=== PATIENT | male | born 1950 | race Caucasian/White ===

== ENCOUNTER → 2017-03-25 11:12 | Outpatient (CLI) | payer MEDICARE, OTHER, SELFPAY ==
--- NOTE | 2017-03-25 11:24 | RAD_ITS ---
STUDY: X-RAY CHEST REASON FOR EXAM: Male, 66 years old. Dyspnea on exertion. TECHNIQUE: PA and lateral views of the chest. COMPARISON: Comparison is made with prior study dated July 28, 2012. FINDINGS: There is mild elevation of the right hemidiaphragm. Stable mild increased markings at the right lung base suggestive scarring. There is no demonstrated pleural abnormality. Sternal cerclage wires are present from a prior sternotomy. The patient is status post aortic valve replacement. Cardiomegaly. Normal mediastinum and genoveva. Normal visualized pulmonary arteries. Normal visualized aortic arch and descending thoracic aorta. There is a dextroscoliosis of the thoracic spine. Normal visualized ribs, clavicles, and shoulders. There is no demonstrated abnormality of the visualized soft tissue structures of the upper abdomen. RAD/Chest PA and Lateral IMPRESSION: Prior aortic valve replacement. No acute abnormality is seen. Electronically Signed: Darius Martin MD at 11:55 EST Tel [phone], Service support ,
== END ==
PROVIDERS: Family Provider Family Medicine; PCP Family Medicine; Visit Provider Family Medicine
DX: R06.09 Other forms of dyspnea (principal)
CPT/HCPCS: 71046

== ENCOUNTER 2021-05-07 08:35 | Outpatient (RCR) | payer MEDICARE, OTHER, SELFPAY ==
[2021-05-07 09:07] VITALS: BP 105/68; PULSE 90; RESP 16; TEMP 35.7; BMI 28.4
--- NOTE | 2021-05-07 10:27 | PCM.WC.HP ---
History of Present Illness Date of Service: 05/07/21 Chief Complaint: Follow-up right lower leg anterior russell cluster Wounds History of Wound: 70-year-old white male that has history of an aortic valve replacement mechanical and now has developed A. fib. noticed severe edema since Isa. The [facility] Has put him on water pill. Recently he went and saw his regular natural science curator that diagnosed him with the atrial fibrillation. Patient is already on Coumadin and Lasix and wears compression stockings only in the last week. Patient was also started on doxycycline through the OR. We will get arterial brachial studies on him and venous studies [facility] Medical History Atrial fibrillation BPH (benign prostatic hyperplasia) Depression High cholesterol Medical History no medical history no medical history Home Medications aspirin 81 mg PO DAILY 05/07/21 [History Last Taken Unknown] buspirone 10 mg PO BID 05/07/21 [History Last Taken Unknown] carvedilol 3.125 mg PO BID 05/07/21 [History Last Taken Unknown] cholecalciferol (vitamin D3) 50 mcg PO DAILY 05/07/21 [History Last Taken Unknown] citalopram 20 mg PO DAILY 05/07/21 [History Last Taken Unknown] cyanocobalamin (vitamin B-12) 1,000 mcg PO DAILY 05/07/21 [History Last Taken Unknown] furosemide 40 mg PO DAILY PRN 05/07/21 [History Last Taken Unknown] multivitamin with minerals 1 tab PO DAILY 05/07/21 [History Last Taken Unknown] potassium mg PO 05/07/21 [History Last Taken Unknown] pravastatin 40 mg PO QHS 05/07/21 [History Last Taken Unknown] tamsulosin 0.4 mg PO QHS 05/07/21 [History Last Taken Unknown] warfarin 2.5 mg PO DAILY 05/07/21 [History Last Taken Unknown] Allergy/AdvReac Type Severity Reaction Status Date / Time Penicillins Allergy Rash Verified 05/07/21 09:35 finasteride AdvReac NEEDS Verified 05/07/21 09:35 FOLLOW-UP lisinopril AdvReac Other Verified 05/07/21 09:35 spironolactone AdvReac NEEDS Verified 05/07/21 09:35 FOLLOW-UP Surgical History Metallic aortic valve replacement during current hospitalization Social History Smoking Status: Never smoker ROS Constitutional Constitutional: Reports systems reviewed and no addt'l complaints, except as documented Eyes Eyes: Reports systems reviewed and no addt'l complaints, except as documented ENT HEENT: Reports systems reviewed and no addt'l complaints, except as documented Cardiovascular Cardiovascular: Reports edema Respiratory/Chest Respiratory/Chest: Reports systems reviewed and no addt'l complaints, except as documented Gastrointestinal Gastrointestinal: Reports systems reviewed and no addt'l complaints, except as documented Genitourinary Genitourinary: Reports systems reviewed and no addt'l complaints, except as documented Musculoskeletal Musculoskeletal: Reports systems reviewed and no addt'l complaints, except as documented Integumentary Integumentary: Reports skin swelling and wounds Neurologic Neurologic: Reports systems reviewed and no addt'l complaints, except as documented Psychiatric Psychiatric: Reports systems reviewed and no addt'l complaints, except as documented Endocrine Endocrinology: Reports systems reviewed and no addt'l complaints, except as documented Hematologic/Lymphatic Hematologic/Lymphatic: Reports systems reviewed and no addt'l complaints, except as documented Allergic/Immunologic Allergic/Immunologic: Reports systems reviewed and no addt'l complaints, except as documented Vital Signs Vital Signs Vital Signs: 05/07/21 09:07 Temperature 96.2 F L Temperature Source Temporal Pulse Rate 90 Respiratory Rate 16 Blood Pressure 105/68 Blood Pressure Mean 80 Blood Pressure Source Monitor Blood Pressure Position Sitting Blood Pressure Location Right Arm Oxygen Delivery Method Room Air Weight Weight: 176 lb Body Mass Index (BMI) 28.4 Physical Exam Const oriented x3 General Appearance: cooperative Exam Limitations: no limitations Neck full ROM General: normal visual inspection Resp normal respiratory effort Effort and Inspection: able to speak in complete sentences Auscultation: clear to auscultation bilaterally Cardio Cardio Narrative: Irregular rate and rhythm obviously in A. fib Palpation: normal PMI Rate: tachycardic Rhythm: regular rhythm and abnormal rhythm Peripheral Pulses: dorsalis pedis pulses present GI Auscultation: normoactive bowel sounds Palpation: soft and no hepatosplenomegaly Extremity Extremity Narrative: Bilateral lower leg edema 4+ pitting areas on the right leg open sores russell area with slough left leg scabbed areas on the lateral aspect both very edematous. General Extremity: normal exam except as noted Peripheral Pulses: Yes dorsalis pedis pulses present Skin no rashes or lesions noted General Skin Exam: venous stasis and dermatitis Wounds: wounds noted Neuro oriented x3 Meningeal Signs: no meningeal signs Speech: speech normal Sensory Exam: extremities Psych Appearance: grossly normal Speech: normal speech Thought Content: normal thought content Judgement: judgement good Debridement Note Debridement Note Wound debrided: Right russell cluster from peripheral vascular disease Type of Debridement: Excisional debridement Anesthesia Used: 5% Lidocaine Gel Depth: in the subcutaneous layer Percentage of wound debrided: 100 Instrument Used: 5mm curette, #15 blade and Forceps Tissue Removed: Slough Severity: Limited To Skin Breakdown Amount of bleeding with debridement: Mild Bleeding Controlled with: Compression and gauze Patient tolerated procedure: Patient tolerated procedure well Post-Debridement Measurements and Additional Note: Post-Debridement Measurements/Treatment - Nurse 1 - General Ulcer Assessment Start: 05/07/21 09:07 Freq: Status: Active Protocol: PAT Activity Type Activity Date Activity User E-Sign Co-Sign Detail Recorded Client Recorded Date Recorded By Document 05/07/21 09:07 [facility] [id number] 05/07/21 09:19 [facility] 05/07/21 09:07 - Today's Visit Information Type of service Initial Visit Arrival Mode Ambulatory Transfer Assistance None Accompanied by Patient Identification Verified (Name & Yes ) Patient Requires Transmission-Based No Precautions Height and Weight Height 5 ft 6 in Weight 176 lb Weight in Pounds 176.0 lbs Body Mass Index (BMI) 28.4 BMI Classification Overweight BSA - Vin 1.89 Vital Signs Temperature (97.8 F-99.1 F) 96.2 F L Temperature Source Temporal Pulse Rate (60-100) 90 Pulse Location Monitor Respiratory Rate (12-18) 16 Respiratory rate source Observation Oxygen Delivery Method Room Air Blood Pressure (90/60-120/80) 105/68 Blood Pressure Mean (mm Hg) 80 Source Monitor Position Sitting Blood Pressure Location Right Arm History Since Last Visit- (Skip if this is Patient's initial visit) Left Footwear Regular Shoe Right Footwear Regular Shoe Pain Scale: 0-10 Numeric Is Patient Pain Free? Yes Lower Extremity Assessment/ Foot Assessment/ Toe Nail Assessment Right -Posterior Tibial Palpable No -Posterior Tibial Doppler Multiphasic -Dorsalis Pedis Palpable No -Dorsalis Pedis Doppler Monophasic -Extremity Color Hemosiderin -Hair Growth on Legs No -Hair Growth on Toes No -Temperature of Extremity Warm -Other Deformity No -Prior Foot Ulcer No -Charcot Joint No -Prior Amputation No -Thick Yes -Discolored Yes -Deformed No -Improper Length & Hygeine No Left -Posterior Tibial Palpable No -Posterior Tibial Doppler Multiphasic -Dorsalis Pedis Palpable No -Dorsalis Pedis Doppler Multiphasic -Extremity Color Hemosiderin -Hair Growth on Legs No -Hair Growth on Toes No -Temperature of Extremity Warm -Other Deformity No -Prior Foot Ulcer No -Charcot Joint No -Prior Amputation No -Thick Yes -Discolored Yes -Deformed No -Improper Length & Hygeine No Neuropathy Assessment Feet - Top Side and Bottom <Entered> (a) Communication Assessment Preferred language Slovak Fine Arts Model Required No Able to Read Yes Able to Write Yes Communication Tools None Right Hearing Abillity Hard of Hearing Left Hearing Abillity Hard of Hearing Visual Assistive Devices Glasses Teaching Assessment Preferences Verbal,Written, Audio/Visual, Demonstration Barriers to Learning None Readiness To Learn Excellent Willingness to Engage in Self Management High Activies Readiness to Engage in Self Management High Activities Anxiety Level Calm Cooperation Cooperative Perception Coherent Interest in Health Problem Asks Questions Education Importance Acknowledges Need Does Patient Smoke tobacco or other No substances Smoking Status Never smoker Is Patient Diabetic No Functional Assessment Recent Decline in Ability to Perform Denies Any Declines Culture/Church/Damage Prevention Coordinator Cultural/Church Needs that may affect No Treatment Plan Teaching: Wound Center *Welcome to the Wound Center -Person Taught Patient, Significant Other -Teaching Method Discussion -Response to teaching Verbalize understanding Welcome to the Wound Care Center Slovak (a) 1 - - 2 - + 3 - + 4 - + 5 - + 6 - - 7 - + 8 - - 9 - + 10 - - 11 - + 12 - + WC - Nurse 1 - General Ulcer Measurement Start: 05/07/21 09:07 Freq: Status: Active Protocol: Activity Type Activity Date Activity User E-Sign Co-Sign Detail Recorded Client Recorded Date Recorded By Document 05/07/21 09:07 [facility] [id number] 05/07/21 09:19 [facility] 05/07/21 09:07 Wound Center Nurse 1 #2- L LAT LEG CLUSTER (SCABS) -Combined with other wound No -Date of Last Picture (Recall this 05/07/21 field) -Photo Taken Yes -Epithelialization None Present -Tunneling No -Undermining/Tunneling No -Circular Undermining No -Exudate Amt None Present -Wound Margin Distinct, Outline Attached -Granulation Amt None Present (0 %) -Slough/Fibrin Yes -Necrosis Amt Large (67-100%) -Necrotic Tissue Type Adherent Slough -Texture ([place]-wound Skin Appearance) Assessed, Scarring -Moisture ([place]-wound Skin Appearance) Assessed,Dry/ Scaly -Color ([place]-wound Skin Appearance) Assessed -Temperature ([place]-wound Skin No Abnormality Appearance) (Pt Warm) -Tenderness on Palpation ([place]-wound No Skin Appearance) -Ulcer Cleansing Rinsed/ Irrigated with Saline -Foul Odor after Cleansing No -Anesthetic Used 5% Lidocaine Gel #1- R RUSSELL CLUSTER -Combined with other wound No -Current Size (cm) - Length 4.8 -Current Size (cm) - Width 2.2 -Current Size (cm) - Depth 0.2 -Total Square Cm 10.56 -Date of Last Picture (Recall this 05/07/21 field) -Photo Taken Yes -Epithelialization None Present -Tunneling No -Undermining/Tunneling No -Circular Undermining No -Exudate Amt None Present -Wound Margin Distinct, Outline Attached -Granulation Amt None Present (0 %) -Slough/Fibrin Yes -Necrosis Amt Large (67-100%) -Necrotic Tissue Type Adherent Slough -Texture ([place]-wound Skin Appearance) Assessed, Scarring -Moisture ([place]-wound Skin Appearance) Assessed,Dry/ Scaly -Color ([place]-wound Skin Appearance) Assessed -Temperature ([place]-wound Skin No Abnormality Appearance) (Pt Warm) -Tenderness on Palpation ([place]-wound Yes Skin Appearance) -Ulcer Cleansing Rinsed/ Irrigated with Saline -Foul Odor after Cleansing No -Anesthetic Used 5% Lidocaine Gel Lower Limb Edema Present Yes Right Calf (cm) 41 Right Ankle (cm) 25.5 Left Calf (cm) 41.2 Left Ankle (cm) 25 WC - Nurse 2 - General Ulcer CM Notes Start: 05/07/21 09:07 Freq: Status: Active Protocol: Activity Type Activity Date Activity User E-Sign Co-Sign Detail Recorded Client Recorded Date Recorded By Document 05/07/21 09:39 MW [id number] 05/07/21 09:54 MW 05/07/21 09:39 Wound Center Nurse 2 #2- L LAT LEG CLUSTER (SCABS) -Time 09:41 -Correct Patient Yes -Correct Side, Site, Position Yes -Correct Procedure Yes -Procedure Performed No -Post Debridement (cm) - Length 0.1 -Post Debridement (cm) - Width 0.1 -Post Debridement (cm) - Depth 0.1 -Total Square (Post) (cm) 0.01 -Tunneling No -Undermining/Tunneling No -Circular Undermining No -Wound/Ulcer Outcome Not Healed #1- R RUSSELL CLUSTER -Time 09:39 -Correct Patient Yes -Correct Side, Site, Position Yes -Correct Procedure Yes -Procedure Performed Yes -Type of Procedure Debridement -Clinical Debridement Subcutaneous -Tissue Removed Subcutaneous -Post Debridement (cm) - Length 5.0 -Post Debridement (cm) - Width 2.3 -Post Debridement (cm) - Depth 0.2 -Total Square (Post) (cm) 11.50 -Area of Debridement (cm) - Length 5.0 -Area of Debridement (cm) - Width 2.3 -Total Square (Area) (cm) 11.50 -Tunneling No -Undermining/Tunneling No -Circular Undermining No -Wound/Ulcer Outcome Not Healed -Ulcer Cleansing Rinsed/ Irrigated with Saline -Foul Odor after Cleansing No -Bioengineered Tissue No -Bleeding Controlled with Pressure -Treatment Response Procedure Tolerated Well -Offloading No -Debridement - Subq, 1st 20sq cm Yes Pain Scale: 0-10 Numeric Is Patient Pain Free? Yes WC - Nurse 3 - General Ulcer D/C NN Start: 05/07/21 09:07 Freq: Status: Active Protocol: Activity Type Activity Date Activity User E-Sign Co-Sign Detail Recorded Client Recorded Date Recorded By Document 05/07/21 09:58 KR [id number] 05/07/21 09:59 KR 05/07/21 09:58 Wound Care Nurse 3 #2- L LAT LEG CLUSTER (SCABS) -Ulcer Cleansing Rinsed/ Irrigated with Saline -Primary Dressing Applied Aquacel Extra, NonAdherent Contact Layer -Primary Dressing Covered/Secured with Dry Gauze, Secured with Tape -Aquacel Extra 1 Right -Tubular Bandage Double Layer -Size of Tubigrip Used Size E -Size E ($) 2 Left -Tubular Bandage Double Layer -Size of Tubigrip Used Size E -Size E ($) 2 Pain Scale: 0-10 Numeric Is Patient Pain Free? 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: CODE(S): I73.9 - Peripheral vascular disease, unspecified; L97.909 - Non-pressure chronic ulcer of unspecified part of unspecified lower leg with unspecified severity PLAN: Wash right lower leg with antibacterial soap and apply Aquacel extra to the wound base moistened Adaptic over top gauze and dressing double layer Tubigrip to bilateral lower legs Follow-up in 1 week (2) Open wounds involving multiple regions of lower extremity: CODE(S): S81.809A - Unspecified open wound, unspecified lower leg, initial encounter PLAN: We will get the arterial brachial and venous study scheduled (3) Bilateral lower extremity edema: CODE(S): R60.0 - Localized edema (4) Atrial fibrillation: CODE(S): I48.91 - Unspecified atrial fibrillation
== END 2021-05-08 23:59 | disposition home or self-care (01) ==
LOC: WC 08:35
PROVIDERS: PCP Family Medicine; Visit Provider Nurse Practitioner
DX: L97.821 Non-pressure chronic ulcer of other part of left lower leg limited to breakdown of skin (principal); I73.9 Peripheral vascular disease, unspecified; I48.91 Unspecified atrial fibrillation; G62.9 Polyneuropathy, unspecified; R60.0 Localized edema; N40.0 Benign prostatic hyperplasia without lower urinary tract symptoms; F32.A Depression, unspecified; E66.3 Overweight; Z68.28 Body mass index [BMI] 28.0-28.9, adult; Z79.01 Long term (current) use of anticoagulants; Z79.82 Long term (current) use of aspirin; Z79.899 Other long term (current) drug therapy; Z95.2 Presence of prosthetic heart valve
CPT/HCPCS: 11042; 99203; G0463

== ENCOUNTER 2021-06-04 09:45 | Outpatient (RCR) | payer MEDICARE, OTHER, SELFPAY ==
[2021-05-09 00:54] VITALS: BP 105/68; PULSE 90; RESP 16; TEMP 35.7; BMI 28.4
[2021-05-14 09:41] VITALS: BP 102/62; PULSE 78; TEMP 35.9; BMI 28.4
--- NOTE | 2021-05-14 11:08 | PN.PCM_ITS ---
History of Present Illness Date of Service: 05/14/21 Chief Complaint: Follow-up right lower leg anterior russell cluster Wounds History of Wound: 70-year-old white male that has history of an aortic valve replacement mechanical and now has developed A. fib. noticed severe edema since Isa. He then just developed blisters that opened. The [facility] Has put him on water pill. Recently he went and saw his regular hearing care professional that diagnosed him with the atrial fibrillation. Patient is already on Coumadin and Lasix and wears compression stockings only in the last week. Patient was also started on doxycycline through the [place]. We will get arterial brachial studies on him and venous studies Progress of Wound: Areas are measuring smaller tolerating the Aquacel extra well no sign of infection debrides easily will continue same treatment Subjective Subjective Wonders if he still needs to get studies and since he is healing but we said just that he does only because it will happen again the blistering and openings. Objective Data Objective Data As above no sign of infection wounds are measuring smaller from his peripheral vascular disease less pain. He is doing well no complaints Vital Signs: Vital Signs Temp Pulse Resp BP 96.7 F L 78 16 102/62 05/14/21 09:41 05/14/21 09:41 05/09/21 00:54 05/14/21 09:41 Weight: 176 lb Body Mass Index (BMI) 28.4 Physical Exam Const oriented x3 General Appearance: cooperative Exam Limitations: no limitations Neck full ROM General: normal visual inspection Resp normal respiratory effort Effort and Inspection: able to speak in complete sentences Auscultation: clear to auscultation bilaterally Cardio Cardio Narrative: Irregular rate and rhythm obviously in A. fib Palpation: normal PMI Rate: tachycardic Rhythm: regular rhythm and abnormal rhythm Peripheral Pulses: dorsalis pedis pulses present GI Auscultation: normoactive bowel sounds Palpation: soft and no hepatosplenomegaly Extremity Extremity Narrative: Bilateral lower leg edema 4+ pitting areas on the right leg open sores russell area with slough left leg scabbed areas on the lateral aspect both very edematous. General Extremity: normal exam except as noted Peripheral Pulses: Yes dorsalis pedis pulses present Skin no rashes or lesions noted General Skin Exam: venous stasis and dermatitis Wounds: wounds noted Neuro oriented x3 Meningeal Signs: no meningeal signs Speech: speech normal Sensory Exam: extremities Psych Appearance: grossly normal Speech: normal speech Thought Content: normal thought content Judgement: judgement good Debridement Note Debridement Note Wound debrided: Right russell cluster from peripheral vascular disease Type of Debridement: Excisional debridement Anesthesia Used: 5% Lidocaine Gel Depth: Down to and including healthy tissue Percentage of wound debrided: 100 Instrument Used: 5mm curette Tissue Removed: Slough and fibrin Severity: Fat Layer Exposed Amount of bleeding with debridement: Mild Bleeding Controlled with: Compression and gauze Patient tolerated procedure: Patient tolerated procedure well Post-Debridement Measurements and Additional Note: Post-Debridement Measurements/Treatment - Nurse 1 - General Ulcer Assessment Start: 05/14/21 09:40 Freq: Status: Active Protocol: PAT Activity Type Activity Date Activity User E-Sign Co-Sign Detail Recorded Client Recorded Date Recorded By Document 05/14/21 09:41 LACIE [id number] 05/14/21 09:50 LACIE 05/14/21 09:41 WC - Today's Visit Information Type of service Follow-up Visit (Physician/STEEL LAYER ) Arrival Mode Ambulatory Patient Identification Verified (Name & Yes ) Height and Weight Body Mass Index (BMI) 28.4 BMI Classification Overweight Vital Signs Temperature (97.8 F-99.1 F) 96.7 F L Temperature Source Temporal Pulse Rate (60-100) 78 Pulse Location Monitor Blood Pressure (90/60-120/80) 102/62 Blood Pressure Mean (mm Hg) 75 Source Monitor Position Semi-Fowlers Blood Pressure Location Right Arm History Since Last Visit- (Skip if this is Patient's initial visit) Have you changed medications since your No last visit? Any new allergies or adverse reactions No Had a fall/change in ADL's that may No increase risk of falls Signs or symptoms of abuse and/or No neglect since last visit Have you been in the hospital since your No last visit? Has dressing in place as prescribed Yes Has compression in place as prescribed Yes Has offloadiing in place as prescribed N/A Experienced any changes in pain level or No management Left Footwear Regular Shoe Right Footwear Regular Shoe Pain Scale: 0-10 Numeric Is Patient Pain Free? Yes - Nurse 1 - General Ulcer Measurement Start: 05/14/21 09:40 Freq: Status: Active Protocol: Activity Type Activity Date Activity User E-Sign Co-Sign Detail Recorded Client Recorded Date Recorded By Document 05/14/21 09:41 KR [id number] 05/14/21 09:50 KR 05/14/21 09:41 Wound Center Nurse 1 #2- L LAT LEG CLUSTER (SCABS) -Current Size (cm) - Length 0.1 -Current Size (cm) - Width 0.1 -Current Size (cm) - Depth 0.1 -Total Square Cm 0.01 -Exudate Amt None Present -Wound Margin Distinct, Outline Attached -Granulation Amt None Present (0 %) -Necrosis Amt None Present (0 %) -Moisture ([place]-wound Skin Appearance) Assessed,Dry/ Scaly -Temperature ([place]-wound Skin No Abnormality Appearance) (Pt Warm) -Tenderness on Palpation ([place]-wound No Skin Appearance) -Ulcer Cleansing Rinsed/ Irrigated with Saline -Foul Odor after Cleansing No #1- R RUSSELL CLUSTER -Current Size (cm) - Length 4.6 -Current Size (cm) - Width 1.5 -Current Size (cm) - Depth 0.2 -Total Square Cm 6.90 -Exudate Amt Small -Exudate Type Serosanguineous -Wound Margin Distinct, Outline Attached -Granulation Amt Medium (34-66%) -Granulation Quality [place] -Necrosis Amt Medium (34-66%) -Necrotic Tissue Type Adherent Slough -Texture ([place]-wound Skin Appearance) Assessed, Scarring -Moisture ([place]-wound Skin Appearance) No Abnormality, Assessed -Color ([place]-wound Skin Appearance) No Abnormality, Assessed -Temperature ([place]-wound Skin No Abnormality Appearance) (Pt Warm) -Tenderness on Palpation ([place]-wound No Skin Appearance) -Ulcer Cleansing Rinsed/ Irrigated with Saline -Foul Odor after Cleansing No -Anesthetic Used 4% Lidocaine Solution,5% Lidocaine Gel Right Calf (cm) 34.2 Right Ankle (cm) 22.5 Left Calf (cm) 31 Left Ankle (cm) 21.5 WC - Nurse 2 - General Ulcer CM Notes Start: 05/14/21 09:40 Freq: Status: Active Protocol: Activity Type Activity Date Activity User E-Sign Co-Sign Detail Recorded Client Recorded Date Recorded By Document 05/14/21 09:56 MW [id number] 05/14/21 09:59 MW 05/14/21 09:56 Wound Center Nurse 2 #2- L LAT LEG CLUSTER (SCABS) -Time 09:58 -Post Debridement (cm) - Length 0 -Post Debridement (cm) - Width 0 -Post Debridement (cm) - Depth 0 -Total Square (Post) (cm) 0 -Wound/Ulcer Outcome Healed- Epithelialized #1- R RUSSELL CLUSTER -Time 09:58 -Correct Patient Yes -Correct Side, Site, Position Yes -Correct Procedure Yes -Procedure Performed Yes -Type of Procedure Debridement -Clinical Debridement Subcutaneous -Tissue Removed Subcutaneous -Post Debridement (cm) - Length 4.7 -Post Debridement (cm) - Width 1.3 -Post Debridement (cm) - Depth 0.2 -Total Square (Post) (cm) 6.11 -Area of Debridement (cm) - Length 4.7 -Area of Debridement (cm) - Width 1.3 -Total Square (Area) (cm) 6.11 -Tunneling No -Undermining/Tunneling No -Circular Undermining No -Wound/Ulcer Outcome Not Healed -Ulcer Cleansing Rinsed/ Irrigated with Saline -Foul Odor after Cleansing No -Bioengineered Tissue No -Bleeding Controlled with Pressure -Treatment Response Procedure Tolerated Well -Offloading No -Debridement - Subq, 1st 20sq cm Yes Pain Scale: 0-10 Numeric Is Patient Pain Free? Yes - Nurse 3 - General Ulcer D/C NN Start: 05/14/21 09:40 Freq: Status: Active Protocol: Activity Type Activity Date Activity User E-Sign Co-Sign Detail Recorded Client Recorded Date Recorded By Document 05/14/21 10:03 [facility] [id number] 05/14/21 10:05 [facility] 05/14/21 10:03 Wound Care Nurse 3 #1- R RUSSELL CLUSTER -Ulcer Cleansing Rinsed/ Irrigated with Saline -Foul Odor after Cleansing No -Primary Dressing Applied Aquacel Extra, NonAdherent Contact Layer -Primary Dressing Covered/Secured with Dry Gauze & Roll Gauze, Secured with Tape -Other Covering DRSG PER [place] CARPENTER ASSEMBLER -Aquacel Extra 1 BLE -Tubular Bandage Double Layer -Size of Tubigrip Used Size E -Size E ($) 2 Treatment Response Procedure Tolerated Well Pain Scale: 0-10 Numeric Is Patient Pain Free? Yes - Visit Discharge Discharge Condition Stable Transportation Private Auto Accompanied by Assessment/Plan Assessment/Plan (1) Peripheral vascular disease of lower extremity with ulceration: CODE(S): I73.9 - Peripheral vascular disease, unspecified; L97.909 - Non- pressure chronic ulcer of unspecified part of unspecified lower leg with unspecified severity PLAN: Wash right lower leg with antibacterial soap and apply Aquacel extra to the wound base moistened Adaptic over top gauze and dressing double layer Tubigrip to bilateral lower legs Follow-up in 1 week (2) Open wounds involving multiple regions of lower extremity: CODE(S): S81.809A - Unspecified open wound, unspecified lower leg, initial encounter PLAN: We will get the arterial brachial and venous study scheduled scheduled for May 26 (3) Bilateral lower extremity edema: CODE(S): R60.0 - Localized edema (4) Atrial fibrillation: CODE(S): I48.91 - Unspecified atrial fibrillation QUALIFIERS: Atrial fibrillation type: paroxysmal Qualified Code(s): I48.0 - Paroxysmal atrial fibrillation
--- NOTE | 2021-05-21 10:52 | PCM.WC.PN ---
History of Present Illness Date of Service: 05/21/21 Chief Complaint: Follow-up right lower leg anterior russell cluster Wounds History of Wound: 70-year-old white male that has history of an aortic valve replacement mechanical and now has developed A. fib. noticed severe edema since Isa. He then just developed blisters that opened. The [place] [facility] Has put him on water pill. Recently he went and saw his regular medical anthropology director that diagnosed him with the atrial fibrillation. Patient is already on Coumadin and Lasix and wears compression stockings only in the last week. Patient was also started on doxycycline through the [place]. We will get arterial brachial studies on him and venous studies Progress of Wound: Areas are measuring smaller tolerating the Aquacel extra well no sign of infection debride well but not moving fast enough we will try Promogran on patient. Subjective Subjective Patient is doing well has no concerns at this time Objective Data Objective Data New cell growth and base of wound is a cluster wound on right russell. Doing well filling in slightly smaller Vital Signs: Vital Signs Temp Pulse Resp BP 96.7 F L 78 16 102/62 05/14/21 09:41 05/14/21 09:41 05/09/21 00:54 05/14/21 09:41 Weight: 176 lb Body Mass Index (BMI) 28.4 Physical Exam Const oriented x3 General Appearance: cooperative Exam Limitations: no limitations Neck full ROM General: normal visual inspection Resp normal respiratory effort Effort and Inspection: able to speak in complete sentences Auscultation: clear to auscultation bilaterally Cardio Cardio Narrative: Irregular rate and rhythm obviously in A. fib Palpation: normal PMI Rate: tachycardic Rhythm: regular rhythm and abnormal rhythm Peripheral Pulses: dorsalis pedis pulses present GI Auscultation: normoactive bowel sounds Palpation: soft and no hepatosplenomegaly Extremity Extremity Narrative: Bilateral lower leg edema 4+ pitting areas on the right leg open sores russell area with slough left leg scabbed areas on the lateral aspect both very edematous. General Extremity: normal exam except as noted Peripheral Pulses: Yes dorsalis pedis pulses present Skin no rashes or lesions noted General Skin Exam: venous stasis and dermatitis Wounds: wounds noted Neuro oriented x3 Meningeal Signs: no meningeal signs Speech: speech normal Sensory Exam: extremities Psych Appearance: grossly normal Speech: normal speech Thought Content: normal thought content Judgement: judgement good Debridement Note Debridement Note Wound debrided: Right russell cluster from peripheral vascular disease Type of Debridement: Excisional debridement Anesthesia Used: 5% Lidocaine Gel Depth: Down to and including healthy tissue Percentage of wound debrided: 100 Instrument Used: 5mm curette Tissue Removed: Fibrin Severity: Fat Layer Exposed Amount of bleeding with debridement: Mild Bleeding Controlled with: Pressure and Compression and gauze Patient tolerated procedure: Patient tolerated procedure well Post-Debridement Measurements and Additional Note: Post-Debridement Measurements/Treatment - Nurse 1 - General Ulcer Assessment Start: 05/14/21 09:40 Freq: Status: Active Protocol: PAT Activity Type Activity Date Activity User E-Sign Co-Sign Detail Recorded Client Recorded Date Recorded By Document 05/14/21 09:41 LACIE [id number] 05/14/21 09:50 LACIE 05/14/21 09:41 WC - Today's Visit Information Type of service Follow-up Visit (Physician/BOOSTER PUMP OPERATOR ) Arrival Mode Ambulatory Patient Identification Verified (Name & Yes ) Height and Weight Body Mass Index (BMI) 28.4 BMI Classification Overweight Vital Signs Temperature (97.8 F-99.1 F) 96.7 F L Temperature Source Temporal Pulse Rate (60-100) 78 Pulse Location Monitor Blood Pressure (90/60-120/80) 102/62 Blood Pressure Mean (mm Hg) 75 Source Monitor Position Semi-Fowlers Blood Pressure Location Right Arm History Since Last Visit- (Skip if this is Patient's initial visit) Have you changed medications since your No last visit? Any new allergies or adverse reactions No Had a fall/change in ADL's that may No increase risk of falls Signs or symptoms of abuse and/or No neglect since last visit Have you been in the hospital since your No last visit? Has dressing in place as prescribed Yes Has compression in place as prescribed Yes Has offloadiing in place as prescribed N/A Experienced any changes in pain level or No management Left Footwear Regular Shoe Right Footwear Regular Shoe Pain Scale: 0-10 Numeric Is Patient Pain Free? Yes - Nurse 1 - General Ulcer Measurement Start: 05/14/21 09:40 Freq: Status: Active Protocol: Activity Type Activity Date Activity User E-Sign Co-Sign Detail Recorded Client Recorded Date Recorded By Document 05/14/21 09:41 LACIE [id number] 05/14/21 09:50 KR 05/14/21 09:41 Wound Center Nurse 1 #2- L LAT LEG CLUSTER (SCABS) -Current Size (cm) - Length 0.1 -Current Size (cm) - Width 0.1 -Current Size (cm) - Depth 0.1 -Total Square Cm 0.01 -Exudate Amt None Present -Wound Margin Distinct, Outline Attached -Granulation Amt None Present (0 %) -Necrosis Amt None Present (0 %) -Moisture ([place]-wound Skin Appearance) Assessed,Dry/ Scaly -Temperature ([place]-wound Skin No Abnormality Appearance) (Pt Warm) -Tenderness on Palpation ([place]-wound No Skin Appearance) -Ulcer Cleansing Rinsed/ Irrigated with Saline -Foul Odor after Cleansing No #1- R RUSSELL CLUSTER -Current Size (cm) - Length 4.6 -Current Size (cm) - Width 1.5 -Current Size (cm) - Depth 0.2 -Total Square Cm 6.90 -Exudate Amt Small -Exudate Type Serosanguineous -Wound Margin Distinct, Outline Attached -Granulation Amt Medium (34-66%) -Granulation Quality [place] -Necrosis Amt Medium (34-66%) -Necrotic Tissue Type Adherent Slough -Texture ([place]-wound Skin Appearance) Assessed, Scarring -Moisture ([place]-wound Skin Appearance) No Abnormality, Assessed -Color ([place]-wound Skin Appearance) No Abnormality, Assessed -Temperature ([place]-wound Skin No Abnormality Appearance) (Pt Warm) -Tenderness on Palpation ([place]-wound No Skin Appearance) -Ulcer Cleansing Rinsed/ Irrigated with Saline -Foul Odor after Cleansing No -Anesthetic Used 4% Lidocaine Solution,5% Lidocaine Gel Right Calf (cm) 34.2 Right Ankle (cm) 22.5 Left Calf (cm) 31 Left Ankle (cm) 21.5 WC - Nurse 2 - General Ulcer CM Notes Start: 05/14/21 09:40 Freq: Status: Active Protocol: Activity Type Activity Date Activity User E-Sign Co-Sign Detail Recorded Client Recorded Date Recorded By Document 05/14/21 09:56 MW [id number] 05/14/21 09:59 MW 05/14/21 09:56 Wound Center Nurse 2 #2- L LAT LEG CLUSTER (SCABS) -Time 09:58 -Post Debridement (cm) - Length 0 -Post Debridement (cm) - Width 0 -Post Debridement (cm) - Depth 0 -Total Square (Post) (cm) 0 -Wound/Ulcer Outcome Healed- Epithelialized #1- R RUSSELL CLUSTER -Time 09:58 -Correct Patient Yes -Correct Side, Site, Position Yes -Correct Procedure Yes -Procedure Performed Yes -Type of Procedure Debridement -Clinical Debridement Subcutaneous -Tissue Removed Subcutaneous -Post Debridement (cm) - Length 4.7 -Post Debridement (cm) - Width 1.3 -Post Debridement (cm) - Depth 0.2 -Total Square (Post) (cm) 6.11 -Area of Debridement (cm) - Length 4.7 -Area of Debridement (cm) - Width 1.3 -Total Square (Area) (cm) 6.11 -Tunneling No -Undermining/Tunneling No -Circular Undermining No -Wound/Ulcer Outcome Not Healed -Ulcer Cleansing Rinsed/ Irrigated with Saline -Foul Odor after Cleansing No -Bioengineered Tissue No -Bleeding Controlled with Pressure -Treatment Response Procedure Tolerated Well -Offloading No -Debridement - Subq, 1st 20sq cm Yes Pain Scale: 0-10 Numeric Is Patient Pain Free? Yes - Nurse 3 - General Ulcer D/C NN Start: 05/14/21 09:40 Freq: Status: Active Protocol: Activity Type Activity Date Activity User E-Sign Co-Sign Detail Recorded Client Recorded Date Recorded By Document 05/14/21 10:03 [facility] [id number] 05/14/21 10:05 [facility] 05/14/21 10:03 Wound Care Nurse 3 #1- R RUSSELL CLUSTER -Ulcer Cleansing Rinsed/ Irrigated with Saline -Foul Odor after Cleansing No -Primary Dressing Applied Aquacel Extra, NonAdherent Contact Layer -Primary Dressing Covered/Secured with Dry Gauze & Roll Gauze, Secured with Tape -Other Covering DRSG PER [place] FOOD TECHNICIAN -Aquacel Extra 1 BLE -Tubular Bandage Double Layer -Size of Tubigrip Used Size E -Size E ($) 2 Treatment Response Procedure Tolerated Well Pain Scale: 0-10 Numeric Is Patient Pain Free? Yes WC - Visit Discharge Discharge Condition Stable Transportation Private Auto Accompanied by Assessment/Plan Assessment/Plan (1) Peripheral vascular disease of lower extremity with ulceration: CODE(S): I73.9 - Peripheral vascular disease, unspecified; L97.909 - Non-pressure chronic ulcer of unspecified part of unspecified lower leg with unspecified severity PLAN: Wash right lower leg with antibacterial soap and apply Promogran to the wound base moistened Adaptic over top gauze and dressing double layer Tubigrip to bilateral lower legs Follow-up in 2 week (2) Open wounds involving multiple regions of lower extremity: CODE(S): S81.809A - Unspecified open wound, unspecified lower leg, initial encounter PLAN: We will get the arterial brachial and venous study scheduled scheduled for May 26 (3) Bilateral lower extremity edema: CODE(S): R60.0 - Localized edema (4) Atrial fibrillation: CODE(S): I48.91 - Unspecified atrial fibrillation QUALIFIERS: Atrial fibrillation type: paroxysmal Qualified Code(s): I48.0 - Paroxysmal atrial fibrillation
[2021-05-21 11:54] VITALS: BP 101/63; PULSE 79; RESP 18; TEMP 36.4; BMI 28.4
--- NOTE | 2021-05-26 10:08 | ART_ITS ---
Reason For Study: PAD, NON HEALING RLE WOUND Procedure A bilateral lower extremity continuous wave Doppler with analog waveform analysis,segmental pressures,and ankle brachial indexes without exercise. Left Segmental Pressures Left brachial= 104mmHg. Left posterior tibial artery = 160mmHg. Left dorsalis pedis artery = 147mmHg. The left posterior tibial artery waveforms are triphasic. The left dorsalis pedis waveforms are triphasic. Right Segmental Pressures Right brachial= 94mmHg. Right posterior tibial artery = 163mmHg. Right dorsalis pedis artery = 147mmHg. The right posterior tibial artery waveforms are triphasic. The right dorsalis pedis waveforms are triphasic. Indices The right resting ankle brachial index is 1.57. The right ankle brachial index by the posterior tibial artery is 1.57. The right ankle brachial index by the dorsalis pedis is 1.41. The left resting ankle brachial index is 1.54. The left ankle brachial index by the posterior tibial artery is 1.54. The left ankle brachial index by the dorsalis pedis is 1.41. VL/Lower Ext Art Exam w/o Exercis Interpretation Summary Triphasic Doppler waveforms are noted at ankle level bilaterally. Pulse-volume recordings appear satisfactory at all levels bilaterally, including low thigh, calf, and ankle le vels. Resting ankle- brachial indices are supra-normal bilaterally. There is evidence of arterial calcification at ankle level bilaterally. There i s no evidence of significant arterial occlusive disease in the lower extremities bilaterally. Ordering Physician: Jo Ann Lares Referring Physician: Geoff Ray; vYan Lockwood Performed By: Carleen Cannon RVT, RDCS
--- NOTE | 2021-05-26 10:16 | VDLE_ITS ---
Reason For Study: BLE EDEMA RIGHT LEFT CFV is compressible, spontaneous, phasic, CFV is compressible, spontaneous, phasic, competent and demonstrates normal competent, and demonstrates normal augmentation. augmentation. FV is compressible, spontaneous, phasic, FV is compressible, spontaneous, phasic, competent and demonstrates normal competent and demonstrates normal augmentation. augmentation. POP V is compressible, spontaneous, phasic, POP V is compressible, spontaneous, phasic, competent and demonstrates normal competent and demonstrates normal augmentation. augmentation. T/P Trunk is compressible. T/P Trunk is compressible. PTV is compressible. PTV is compressible. RT PerV is compressible. LT PerV is compressible. SFJ is competent and measures 0.57 x 0.48 cm. SFJ is competent and measures 0.59 x 0.68 cm. GSV proximal thigh measures 0.28 x 0.24 cm. GSV proximal thigh measures 0.39 x 0.32 cm. GSV at knee measures 0.20 x 0.18 cm. GSV at knee measures 0.28 x 0.26 cm. GSV is competent throughout. GSV is competent throughout. SSV proximal calf is competent and measures SSV proximal calf is competent and measures 0.41 x 0.36 cm. 0.20 x 0.16 cm. Procedure Exam performed in department. The exam was diagnostic. A preliminary report was called and/or faxed to [facility]. VL/Venous Duplex US - Eric Extrem Interpretation Summary Deep veins of the lower extremities are bilaterally patent and compressible seg mentally. There is no evidence of deep vein thrombosis on either side. Valvular competence appears in tact within the proximal deep venous systems bilaterally. The great saphenous veins appear bila terally patent and compressible segmentally. Sapheno-femoral junctions are bilaterally competent . Valvular competence appears to be intact segmentally within the great saphenous veins bilaterally. Small saphenous veins are patent and competent bilaterally. Ordering Physician: Jo Ann Lares Referring Physician: Geoff Ray; Yvan Lockwood Performed By: Carleen Cannon RDCS, RVT
[2021-06-04 09:55] VITALS: BP 102/64; PULSE 63; TEMP 36.3; BMI 28.4
--- NOTE | 2021-06-04 11:45 | PN.PCM_ITS ---
History of Present Illness Date of Service: 06/04/21 Chief Complaint: Follow-up right lower leg anterior russell cluster Wounds History of Wound: 70-year-old white male that has history of an aortic valve replacement mechanical and now has developed A. fib. noticed severe edema since Isa. He then just developed blisters that opened. The [facility] Has put him on water pill. Recently he went and saw his regular precision grinder external that diagnosed him with the atrial fibrillation. Patient is already on Coumadin and Lasix and wears compression stockings only in the last week. Patient was also started on doxycycline through the [facility]. We will get arterial brachial studies on him and venous studies Progress of Wound: Wounds are healed patient will be discharged from the wound center Subjective Subjective Happy that he will be discharged he is to continue wearing his compression stockings Objective Data Objective Data As above all healed no sign of swelling slight discolorations he is to wear his compression stockings constantly so this does not happen again and follow-up as needed Vital Signs: Vital Signs Temp Pulse Resp BP 97.3 F L 63 18 102/64 06/04/21 09:55 06/04/21 09:55 05/21/21 11:54 06/04/21 09:55 Weight: 176 lb Body Mass Index (BMI) 28.4 Physical Exam Const oriented x3 General Appearance: cooperative Exam Limitations: no limitations Neck full ROM General: normal visual inspection Resp normal respiratory effort Effort and Inspection: able to speak in complete sentences Auscultation: clear to auscultation bilaterally Cardio Cardio Narrative: Irregular rate and rhythm obviously in A. fib Palpation: normal PMI Rate: tachycardic Rhythm: regular rhythm and abnormal rhythm Peripheral Pulses: dorsalis pedis pulses present GI Auscultation: normoactive bowel sounds Palpation: soft and no hepatosplenomegaly Extremity Extremity Narrative: Bilateral lower leg edema 4+ pitting areas on the right leg open sores russell area with slough left leg scabbed areas on the lateral aspect both very edematous. General Extremity: normal exam except as noted Peripheral Pulses: Yes dorsalis pedis pulses present Skin no rashes or lesions noted General Skin Exam: venous stasis and dermatitis Wounds: wounds noted Neuro oriented x3 Meningeal Signs: no meningeal signs Speech: speech normal Sensory Exam: extremities Psych Appearance: grossly normal Speech: normal speech Thought Content: normal thought content Judgement: judgement good Debridement Note Debridement Note No debridement was completed: No debridement was completed today Post-Debridement Measurements and Additional Note: Post-Debridement Measurements/Treatment WC - Nurse 1 - General Ulcer Assessment Start: 05/14/21 09:40 Freq: Status: Active Protocol: PAT Activity Type Activity Date Activity User E-Sign Co-Sign Detail Recorded Client Recorded Date Recorded By Document 05/14/21 09:41 KR [id number] 05/14/21 09:50 KR Document 05/21/21 11:54 DL [id number] 05/21/21 12:00 DL Document 06/04/21 09:55 MT [id number] 06/04/21 10:00 MT 05/14/21 05/21/21 06/04/21 09:41 11:54 09:55 - Today's Visit Information Type of service Follow-up Visit Follow-up Visit Follow-up Visit (Physician/CREAM SEPARATOR OPERATOR (Physician/CREAM SEPARATOR OPERATOR (Physician/CREAM SEPARATOR OPERATOR ) ) ) Arrival Mode Ambulatory Ambulatory,Cane Ambulatory Transfer Assistance None Patient Identification Verified (Name & Yes Yes Yes ) Patient Requires Transmission-Based No No Precautions Safety Precautions NA Height and Weight Body Mass Index (BMI) 28.4 28.4 28.4 BMI Classification Overweight Overweight Overweight Vital Signs Temperature (97.8 F-99.1 F) 96.7 F L 97.6 F L 97.3 F L Temperature Source Temporal Temporal Temporal Pulse Rate (60-100) 78 79 63 Pulse Location Monitor Monitor Monitor Respiratory Rate (12-18) 18 Respiratory rate source Observation Blood Pressure (90/60-120/80) 102/62 101/63 102/64 Blood Pressure Mean (mm Hg) 75 75 76 Source Monitor Monitor Monitor Position Semi-Fowlers Blood Pressure Location Right Arm History Since Last Visit- (Skip if this is Patient's initial visit) Have you changed medications since your No No No last visit? Any new allergies or adverse reactions No No No Had a fall/change in ADL's that may No No No increase risk of falls Signs or symptoms of abuse and/or No No No neglect since last visit Have you been in the hospital since your No No No last visit? Has dressing in place as prescribed Yes Yes Yes Has compression in place as prescribed Yes Yes Yes Has offloadiing in place as prescribed N/A N/A N/A Experienced any changes in pain level or No No No management Left Footwear Regular Shoe Regular Shoe Right Footwear Regular Shoe Regular Shoe Pain Scale: 0-10 Numeric Is Patient Pain Free? Yes Yes Yes WC - Nurse 1 - General Ulcer Measurement Start: 05/14/21 09:40 Freq: Status: Active Protocol: Activity Type Activity Date Activity User E-Sign Co-Sign Detail Recorded Client Recorded Date Recorded By Document 05/14/21 09:41 KR [id number] 05/14/21 09:50 KR Document 05/21/21 11:54 DL [id number] 05/21/21 12:00 DL Document 06/04/21 09:55 MT [id number] 06/04/21 10:00 MT 05/14/21 05/21/21 06/04/21 09:41 11:54 09:55 Wound Center Nurse 1 #2- L LAT LEG CLUSTER (SCABS) -Current Size (cm) - Length 0.1 -Current Size (cm) - Width 0.1 -Current Size (cm) - Depth 0.1 -Total Square Cm 0.01 -Exudate Amt None Present -Wound Margin Distinct, Outline Attached -Granulation Amt None Present (0 %) -Necrosis Amt None Present (0 %) -Moisture ([place]-wound Skin Appearance) Assessed,Dry/ Scaly -Temperature ([place]-wound Skin No Abnormality Appearance) (Pt Warm) -Tenderness on Palpation ([place]-wound No Skin Appearance) -Ulcer Cleansing Rinsed/ Irrigated with Saline -Foul Odor after Cleansing No #1- R RUSSELL CLUSTER -Combined with other wound No -Current Size (cm) - Length 4.6 4.4 0.1 -Current Size (cm) - Width 1.5 1.5 0.1 -Current Size (cm) - Depth 0.2 0.2 0.1 -Total Square Cm 6.90 6.60 0.01 -Photo Taken No No -Tunneling No -Undermining/Tunneling No -Circular Undermining No -Classification - Thickness Partial Thickness -Change in Wound Grade/Stage No -Exudate Amt Small Medium None Present -Exudate Type Serosanguineous Serosanguineous -Wound Margin Distinct, Distinct, Distinct, Outline Outline Outline Attached Attached Attached -Granulation Amt Medium (34-66%) Medium (34-66%) None Present (0 %) -Granulation Quality [place] Red N/A -Slough/Fibrin No -Necrosis Amt Medium (34-66%) Medium (34-66%) None Present (0 %) -Necrotic Tissue Type Adherent Slough Eschar -Structure Exposed N/A N/A -Texture ([place]-wound Skin Appearance) Assessed, Scarring No Abnormality, Scarring Assessed -Moisture ([place]-wound Skin Appearance) No Abnormality, No Abnormality No Abnormality, Assessed Assessed -Color ([place]-wound Skin Appearance) No Abnormality, Assessed No Abnormality, Assessed Assessed -Temperature ([place]-wound Skin No Abnormality No Abnormality No Abnormality Appearance) (Pt Warm) (Pt Warm) (Pt Warm) -Tenderness on Palpation ([place]-wound No No No Skin Appearance) -Ulcer Cleansing Rinsed/ Soap and Water Rinsed/ Irrigated with Irrigated with Saline Saline -Foul Odor after Cleansing No No No -Anesthetic Used 4% Lidocaine 4% Lidocaine 4% Lidocaine Solution,5% Solution Solution Lidocaine Gel Right Calf (cm) 34.2 33 34 Right Ankle (cm) 22.5 19.7 20 Left Calf (cm) 31 33.6 Left Ankle (cm) 21.5 20.6 WC - Nurse 2 - General Ulcer CM Notes Start: 05/14/21 09:40 Freq: Status: Active Protocol: Activity Type Activity Date Activity User E-Sign Co-Sign Detail Recorded Client Recorded Date Recorded By Document 05/14/21 09:56 MW [id number] 05/14/21 09:59 MW Document 05/21/21 10:10 MW [id number] 05/21/21 12:21 MW Document 06/04/21 10:05 MW [id number] 06/04/21 10:06 MW 05/14/21 05/21/21 06/04/21 09:56 10:10 10:05 Wound Center Nurse 2 #2- L LAT LEG CLUSTER (SCABS) -Time 09:58 -Post Debridement (cm) - Length 0 -Post Debridement (cm) - Width 0 -Post Debridement (cm) - Depth 0 -Total Square (Post) (cm) 0 -Wound/Ulcer Outcome Healed- Epithelialized #1- R RUSSELL CLUSTER -Time 09:58 10:10 10:05 -Correct Patient Yes Yes Yes -Correct Side, Site, Position Yes Yes Yes -Correct Procedure Yes Yes Yes -Procedure Performed Yes Yes No -Type of Procedure Debridement Debridement -Clinical Debridement Subcutaneous Subcutaneous -Tissue Removed Subcutaneous Subcutaneous -Post Debridement (cm) - Length 4.7 4.5 -Post Debridement (cm) - Width 1.3 1.4 -Post Debridement (cm) - Depth 0.2 0.2 -Total Square (Post) (cm) 6.11 6.30 -Area of Debridement (cm) - Length 4.7 4.5 -Area of Debridement (cm) - Width 1.3 1.4 -Total Square (Area) (cm) 6.11 6.30 -Tunneling No No No -Undermining/Tunneling No No No -Circular Undermining No No No -Wound/Ulcer Outcome Not Healed Not Healed Healed- Epithelialized -Ulcer Cleansing Rinsed/ Rinsed/ Irrigated with Irrigated with Saline Saline -Foul Odor after Cleansing No No -Bioengineered Tissue No No -Bleeding Controlled with Pressure Pressure -Treatment Response Procedure Procedure Tolerated Well Tolerated Well -Offloading No No -Debridement - Subq, 1st 20sq cm Yes Yes Pain Scale: 0-10 Numeric Is Patient Pain Free? Yes Yes Yes WC - Nurse 3 - General Ulcer D/C NN Start: 05/14/21 09:40 Freq: Status: Active Protocol: Activity Type Activity Date Activity User E-Sign Co-Sign Detail Recorded Client Recorded Date Recorded By Document 05/14/21 10:03 [facility] [id number] 05/14/21 10:05 [facility] Document 05/21/21 12:00 DL [id number] 05/21/21 12:02 DL Document 06/04/21 10:17 MO [id number] 06/04/21 10:17 AK 05/14/21 05/21/21 06/04/21 10:03 12:00 10:17 Wound Care Nurse 3 #1- R RUSSELL CLUSTER -Ulcer Cleansing Rinsed/ Soap and Water Rinsed/ Irrigated with Irrigated with Saline Saline -Foul Odor after Cleansing No No No -Negative Pressure Wound Therapy N/A -Primary Dressing Applied Aquacel Extra, Promogran NonAdherent Contact Layer -Primary Dressing Covered/Secured with Dry Gauze & Dry Gauze & Roll Gauze, Roll Gauze, Secured with Secured with Tape Tape -Other Covering DRSG PER [place] NURSE TECHNICIAN -Aquacel Extra 1 -Promogran 1 BLE -Tubular Bandage Double Layer Double Layer -Size of Tubigrip Used Size E Size E -Size E ($) 2 2 Treatment Response Procedure Procedure Tolerated Well Tolerated Well Pain Scale: 0-10 Numeric Is Patient Pain Free? Yes Yes Yes WC - Visit Discharge Discharge Condition Stable Stable Stable Ambulatory Status Ambulatory Ambulatory Transportation Private Auto Private Auto Private Auto Accompanied by Medication Reconcilliation completed & Yes provided to patient/care provider Clinical Summary of Care Provided Yes Assessment/Plan Assessment/Plan (1) Peripheral vascular disease of lower extremity with ulceration: CODE(S): I73.9 - Peripheral vascular disease, unspecified; L97.909 - Non- pressure chronic ulcer of unspecified part of unspecified lower leg with unspecified severity PLAN: Went over his arterial brachial and he is venous studies they were all within normal limits all veins and arteries are compressible no signs of any calcification. All wounds on his right russell are healed patient is discharged from the wound center and follow-up as needed (2) Open wounds involving multiple regions of lower extremity: CODE(S): S81.809A - Unspecified open wound, unspecified lower leg, initial encounter PLAN: He just needs to wear compression stockings (3) Bilateral lower extremity edema: CODE(S): R60.0 - Localized edema (4) Atrial fibrillation: CODE(S): I48.91 - Unspecified atrial fibrillation QUALIFIERS: Atrial fibrillation type: paroxysmal Qualified Code(s): I48.0 - Paroxysmal atrial fibrillation
== END 2021-06-04 15:08 | disposition home or self-care (01) ==
LOC: WC 09:45
PROVIDERS: PCP Family Medicine; Referring Provider Nurse Practitioner; Visit Provider Nurse Practitioner
DX: I73.9 Peripheral vascular disease, unspecified (principal); L97.812 Non-pressure chronic ulcer of other part of right lower leg with fat layer exposed; I48.0 Paroxysmal atrial fibrillation; Z95.2 Presence of prosthetic heart valve; R60.0 Localized edema; S81.809A Unspecified open wound, unspecified lower leg, initial encounter
CPT/HCPCS: 11042; 93923; 93970; 99213; G0463

== ENCOUNTER → 2022-04-08 | Outpatient (CLI) | payer MEDICARE, OTHER, SELFPAY ==
[2022-04-08 17:29] LABS: Absolute Lymphocyte Count 0.92 X10^3/uL (0.83-4.51); Absolute Neutrophil Count 4.9 X10^3/uL (2.0-7.7); Basophil# 0.04 X10^3/uL; Basophil% 0.6 % (0-1); Eosinophil# 0.18 X10^3/uL; Eosinophils% 2.6 % (0-5); Hematocrit 34.9 % (40-54); Hemoglobin 10.9 g/dL (13.0-16.5); Lymphocyte # 0.92 X10^3/ul (0.83-4.51); Lymphocyte % 13.4 % (19-41); Mean Corp Hgb Conc 31.2 g/dL (32-36); Mean Corpuscular Hgb 32.1 pg (27.0-32.0); Mean Corpuscular Volume 102.6 fL (80-94); Mean Platelet Vol. 10.6 fl (6.2-12.0); Monocyte# 0.84 X10^3/uL; Monocyte% 12.2 % (0-10); NRBC Flagged by Analyzer 0 % (0-5); Neutrophil # 4.86 X10^3/uL (2.7-7.7); Neutrophil % 70.8 % (47-70); Platelet Count 212 K/mm3 (150-450); RBC Distribution Width CV 15.9 % (11.6-14.6); RBC Distribution Width SD 61.1 fl (35.1-43.9); White Blood Count 6.9 K/mm3 (4.4-11.0)
[2022-04-08 18:36] LABS: AST(SGOT) 27 U/L (15-37); Alanine Aminotransfer ALT/SGPT 21 U/L (16-61); Anion Gap 7 (5-15); BUN 22 mg/dL (7-18); BUN/Creat Ratio 26.2 RATIO (10-20); Chloride 103 mmol/L (98-107); Cholesterol 118 mg/dL (200); Creatinine, Serum 0.84 mg/dL (0.70-1.30); EST Glomerular Filtration Rate 95 mL/min (>60); Est Glom Filt Rate - Afr Amer 116 mL/min (>60); Glucose 92 mg/dL (74-106); High Density Lipoprotein 49 mg/dL; PSA,Total - Annual Screen 1.67 ng/mL (0.00-4.00); Sodium Level 137 mmol/L (136-145); Thyroid Stim Hormone (TSH) 2.22 uIU/mL (0.358-3.74); Triglycerides 166 mg/dL; Very Low Density Lipoprotein 33 mg/dL (5-40)
== END | disposition home or self-care (01) ==
LOC: MFPLAB 16:26
PROVIDERS: PCP Family Medicine; Referring Provider Family Medicine; Visit Provider Family Medicine
DX: Z00.00 Encounter for general adult medical examination without abnormal findings (principal); I50.9 Heart failure, unspecified; E78.5 Hyperlipidemia, unspecified; Z12.5 Encounter for screening for malignant neoplasm of prostate
CPT/HCPCS: 36415; 80048; 80061; 84153; 84443; 84450; 84460; 85025; G0103

== ENCOUNTER → 2022-06-12 | Outpatient (CLI) | payer OTHER, SELFPAY ==
--- NOTE | 2022-06-12 08:05 | PCM.CR.HP2 ---
CR - History & Physical - General Arrival date:: 06/12/22 Arrival time:: 08:00 Date of Referral:: 05/15/22 Date of CR Evaluation:: 06/12/22 Referring Physician: LUZ JACOME Primary Diagnosis: S/P CABG, HFrEF - History of Present Cardiac Event Onset Date: Enter Onset Date of cardiac illnesses in Comment field below Coronary Artery Bypass Graft:: Yes - 03/05/2022 single vessel bypass Heart valve replacement or repair:: Yes - Mitral valve repair w/metal clip Type of Symptoms:: 2009, replaced Aortic Valve. CABG single vessel bypass on 03/07/2022 at the [facility], also repaired the mitral valve w/metal band. Paroxysmal atrial fibrilltation after the surgery. Interventions with present event:: CABG Were there any complications?: None - Sleep Disorder Evaluation Hx of Sleep Apnea: No Do you snore loudly (louder than talking or can be heard through closed doors)?: No Do you often feel tired/ fatigued/ sleepy during daytime?: No Has anyone observed you stop breathing during sleep?: No History of Hypertension (for STOP score): Yes STOP Results: Negative - Medications Home Medications: Ambulatory Orders Medication Instructions Recorded aspirin 81 mg tablet 81 mg PO DAILY 05/07/21 buspirone 10 mg tablet 10 mg PO BID 05/07/21 carvedilol 6.25 mg tablet 3.125 mg PO BID 05/07/21 cholecalciferol (vitamin D3) 25 50 mcg PO DAILY 05/07/21 mcg (1,000 unit) tablet citalopram 20 mg tablet 20 mg PO DAILY 05/07/21 cyanocobalamin (vitamin B-12) 1,000 mcg PO DAILY 05/07/21 1,000 mcg tablet furosemide 40 mg tablet 40 mg PO DAILY PRN Edema 05/07/21 multivitamin with minerals 1 tab PO DAILY 05/07/21 potassium 75 mg tablet mg PO 05/07/21 tamsulosin 0.4 mg capsule 0.4 mg PO QHS 05/07/21 warfarin 2.5 mg tablet 2.5 mg PO DAILY 05/07/21 atorvastatin 40 mg tablet 40 mg PO QHS 06/12/22 gabapentin 100 mg capsule 200 mg PO TID 06/12/22 losartan 25 mg tablet 12.5 mg PO DAILY 06/12/22 - Allergies Allergies/Adverse Reactions: Allergies Penicillins Allergy (Verified 05/07/21 09:35) Rash finasteride Adverse Reaction (Verified 05/07/21 09:35) NEEDS FOLLOW-UP lisinopril Adverse Reaction (Verified 05/07/21 09:35) Other cough spironolactone Adverse Reaction (Verified 05/07/21 09:35) NEEDS FOLLOW-UP Advanced Directives - Advanced Directives Power of Loan Inspector: No Living Will: No Advance Directives Information Provided: Yes Advance Directives on File: No DNR Order?:: No - MOLST See MOLST form: No Past Medical History - Covid-19 Screening Fever: No Unexplained muscle aches: Yes - peripheral neuropathy lower limbs Current respiratory symptoms: No Upper respiratory infections symptoms: No Gastro-intestinal symptoms: No Lff-Bmps-Jfobzf symptoms: No Has tested positive for COVID-19 in last 30 days: No Had contact w/person w/symptoms or Covid-19 (+) last 14 days: No Has High Risk Exposures ID'd by Health dept/Inf Control team: No 65 years or older:: Yes Lives in Assisted Living facility:: No Has a chronic lung disease or moderate to severe asthma:: No Has a serious heart condition:: Yes Immunocompromised:: No Severely obese (Body Mass Index of 40 or higher):: No Diabetic:: No Has chronic kidney disease undergoing dialysis:: No Has liver disease:: No - Past Medical Illness Medical History: Past Medical History (Last Updated 06/12/22 @ 08:28 by Baljit Samayoa, LUIS FELIPE, CNC MAINTENANCE TECHNICIAN, BS) Atrial fibrillation I48.91 BPH (benign prostatic hyperplasia) N40.0 CAD (coronary artery disease) I25.10 Depression F32.A HFrEF (heart failure with reduced ejection fraction) I50.20 High cholesterol E78.00 Hyperlipidemia E78.5 Hypertension I10 LBBB (left bundle branch block) I44.7 Paroxysmal atrial fibrillation I48.0 Peripheral autonomic neuropathy G90.9 Severe aortic insufficiency I35.1 Vitamin D deficiency E55.9 - Past Surgical History Surgical History: Past Surgical History (Last Updated 06/12/22 @ 08:28 by Baljit Samayoa, LUIS FELIPE, CNC MAINTENANCE TECHNICIAN, BS) H/O aortic valve replacement Z95.2 H/O mitral valve repair Z98.890 Metallic aortic valve replacement during current hospitalization Z95.2 S/P CABG x 1 Z95.1 Social History - Smoking History Smoking Status: Former smoker - Past quit smoking 10/28/2009 Hx Tobacco Use: No Hx Smoking Exposure: No - Alcohol Use Alcohol Usage: Yes - - Substance Abuse Hx Substance Use: No - Occupation Occupation (List type of work in comments):: Retired - Hobbies, Recreation, Social Activities Hobbies: Walking - walks about 1.5 miles pre day regular. Also has a treadmill at home for use., Exercise Recreational Activities: I am able to engage in most, but not all activities Social Environment - Status Marital Status: - Current Living Arrangements Living Environment:: Spouse - Children How many children do you have?: 2 Do any of your children live nearby?: Yes - Safety Do you feel safe in your surroundings?: Yes - Assistance Do you need any assistance at home?: no Review of Systems - Review of Systems Hints: Right click = Denies (Slash). 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 Denies: Shortness of Breath at Rest, Angina, Sexual Changes - Pain Is Patient Pain Free?: Yes Pain Location: lower extremity - difficulty standing for long periods of time (Peripheral Neuropathy). Pain Level: 5/10 Risk Factor Assessment - Vital Signs Temperature: 98.7 F Respiratory Rate: 14 Pulse Ox: 96 Blood Pressure: 124/66 - Pulse Pulse Rate: 63 - Hypertension Blood Pressure Sitting - Right Arm: 130/78 Blood Pressure Sitting - Left Arm: 124/66 - Blood Cholesterol/Lipids Total Cholesterol (mg/dL) Goal = less than 200 mg/dL: 0 - Labs made unavailable from the [place] - Obesity Height: 5 ft 6 in Weight:: 158 lb Weight in Pounds: 158.0 lbs Weight Source: Stated by Patient Body Mass Index (BMI): 25.4 Nutritional Referral for Obesity: No - Physical Inactivity Physical Inactivity: Reg Exercise 30 min/day - walks about 1.5 miles daily. - Risk Stratification Risk Guidelines: Lowest Risk: Risk Factor for Smoking, Risk Factor for Obesity, Risk Factor for Sedentary Lifestyle, Risk Factor for Depression, Moderate Risk: Risk Factor for Hypertension - 130/78 Motivation - Motivation to Participate On a scale of 1 to 10, how prepared are you to commit to attending program?: 8 What do you see as barriers to successfully being able to complete the program?: dizziness, difficulty standing for long periods. What do you see as the benefits of succesfully completing the program? In other words, what do you hope to get out of participating in the program?: stronger, healthier, being able to do activities this summer Are there issues you are dealing with that will interfere with completing the program?: peripheral neuropathy Do you have a spouse or signficant other, family or friends who will help support you to complete the program?: Yes
--- NOTE | 2022-06-12 08:05 | PCM.CR.ITP ---
Diagnosis - General Information Admitting Diagnosis: S/P CABG, HFrEF Secondary Diagnosis: CAD, S/P Angioplasty, A-Fib, Cardiomyopathy, LBBB Personal Learning Style:: Audio/Visual, Written Barriers to Learning: Hearing Impairment, Vision Impairment Stage of change r/t lifestyle modifications:: Action Gave educational material for:: Treating Heart Disease, Emotions & Heart Disease, Stress Management & Relaxation, Sleep Disorders & Heart Disease, How The Heart Works, What it means to have Heart Disease, How Coronary Artery Disease is Diagnosed, Heart Procedures, What Heart Medications Do, Risk Factors & Modifications, Living an Active Life, Nutrition - Education/Goals Individual Counseling: Initial Assessment: Abnormal Cholesterol Levels, High Blood Pressure, Overweight/Obesity Cardiac Rehabilitation Goals: 1. Maintain the individual as the primary focus of care. 2. To improve the patient's quality of life. 3. Identification of cardiac risk factors and provide cardiac risk factor management. 4. Enhance the psychosocial status of the patient. 5. Reconditioning enough to allow the patient to resume customary activities. 6. Control symptoms of cardiac disease Personal Goals: Initial Assessment: Improve management of stress and emotions, Improve energy level, Get back to work, or to resume activities faster, Improve knowledge of cardiac disease, Improve muscle strength and endurance, Improve diet and eating habits (eat healthier), Control risk factors (learn risk factor modification) Scale for measuring improvement of personal goals: Enter appropriate number in Comments. 2 = Unchanged. 3 = Slightly Better. 4 = Moderate Improvement. 5 = Met my Goal - Diagnosis & Disease Process Outcomes/Goals: Pt IDs own risk factors & lifestyle modifications by Session 10, Verbalizes symptoms of angina & response by session 3., Pt independently manages Plan/Interventions: Assist Pt to ID & engage in lifestyle modification to reduce CVD risk, Instruct on individual risk factors, Review symptoms of angina & emergency actions, Review secondary diagnosis & identify educational needs. - Safety Referral to Physical Therapy: No Referral to [facility] Case Management: No Fall Risk Assessed:: Yes Assistive Devices:: None Exercise - Initial Assessment - Visit Date of Eval: 06/12/22 Session #:: 0 - Pre-cardiac rehab evaluation Mets: Pre-: >5 METS for 30 minutes by discharge - Physician Prescribed Exercise Modalities: Treadmill, Airdyne, NuStep Frequency: 3x/week for 12 weeks [36 sessions] Intensity: 60-80% of age predicted maximum heart rate reserve Current METSs:: 3.0 Target Heart Rate:: 97-112 Resting Blood Pressure: 130/78 EKG Type: sinus rhythm Current Physical Activity or Exercising minutes: walks about 1.5 miles per day - Outcomes & Goals Goals:: Verbalizes understanding of THR, RPE & goal METS by session 6, Documents in home exercise log/reports 30 min aerobic 5 day/wk by DC, Demonstrates accurate pulse taking by DC - Intervention & Plan Exercise Program Goals: Instruct on personal THR & RPE, Instruct on MET level & personal MET goal, Show patient to take own pulse /validate performance until accurate, Instruct on home exercise - Physical Activity Home Exercise Physical Activity - Home Exercise: Safe Exercise, Warm-up, Self-monitoring, Cool-Down, Home Exercise > 30 min Daily, Sitting Time <3 hours/daily - Outcomes & Goals Outcomes/Goals: Demonstrates correct Warm-up/exercise Cool-Down (S3) if = 2.5 METs, Verbalizes symptoms of exercise intolerance by Session 3 (S3), Demonstrate safe equipment use (S3) & follows exercise prescrition (6) - Intervention & Plan Plan/Intervention: Instruct warm-up & cool-down if exercising at > 2 METs, Instruct on symptoms of exercise intolerance & actions to take, Instruct & monitor on saf, Assess intial functional capacity & safety risk Nutrition - Initial Assessment - Program Goals Nutrition Program Goals: LDL <100 optimal. 100 - 129 Near optimal. 130 - 159 Borderline High. 160 - 189 High. Total Cholesterol <200 desirable. 200 - 239 Borderline High. >/= 240 High. HDL < 40 Low >/=60 High. Triglycerides <150 desirable. <199 optimal. VlDL 5 - 40. HgbA1C <7%. BMI <25 Patient has diagnosis of Hyperlipidemia (ICD E78)?: Yes - Visit Date of Assessment:: 06/12/22 Session #:: 0 - Pre-cardiac rehab evaluation - Cholesterol/Lipids (Other Core Measures) Triglycerides (mg/dL): 0 - no labs available Determine presence & major risk factors that modify LDL goal: Hypertension or hypertensive medication, Family history of premature CHD in Male < 55 years: female <65 yearsFa, Age men > 45 years; women >/= 55 years Outcomes/Goals: Pt IDs own risk factors & lifestyle modifications by Session 10, Verbalizes symptoms of angina & response by session 3., Pt independently manages Intervention/Plan: Instruct on personal lipid levels & lipid goals/NCEP guidelines, Instruct on cholesterol Referral to dietitian:: Yes - Medical Nutrition Therapy - Diabetes (Other Core Measures) Diabetes Type: Not Applicable - Weight Mgt (Other Care) Not Applicable: No Height: 5 ft 4 in - Weight:: 158 lb BMI: 27.1 Diagnosis Overweight/Obesity BMI> 30% ICD-10 E66: No Diagnosis High BMI/Morbid Obesity BMI> 35% ICD-10 Z68: No Outcomes/Goals: Pt sets, maintains & shows weight loss goal & trend during rehab Intervention/Plan: Instruct on ideal BMI & set weight loss goal w/patient - Healthy Eating Habits Outcomes/Goals:: Consume diet rich in vegs,fruits,whole grain/high fiber,fish,lean meat, Limit sat/trans fats,cholesterol & added salts & sugars Intervention/Plan:: Assess current eating habits - Education Gave educational materials for:: Healthy eating Nutrition - 30-Day Assessment Nutrition - 60-Day Assessment Nutrition - 90-Day Assessment Nutrition - Final Assessment Core - Initial Assessment - Visit Date of Eval: 06/12/22 Session #:: 0 - Pre-cardai rehab evaluation - Medication Compliance Preventative Medication(s):: Aspirin, Statin/lipid, Warfarin/Coumadin H/O mental health issues: depression, anxiety, or addiction?: No Doesn?t believe in the benefits of treatment?: No Believes medications are unnecessary or harmful?: No Has a concern about medication side effects?: No Expresses concern over the cost of medications?: No Outcomes/Goals: Verbalizes medications,desired effect & common side effects @ DC, Pt self-reports following medication regimen, Keeps card in wallet w/medications listed by DC Interventions/plans: Instruct on medication effects & side effects, Review medication list w/patient every two weeks, Instruct importance of taking meds as ordered & assist problem solving - Tobacco Use Tobacco Use: Non-smoker - Hypertension Hypertension Diagnosis:: Hypertension ICD-10 I10 Resting Blood Pressure:: 124/66 [place] [employer] Hypertension Guidelines: [place] [employer] Hypertension Guidelines. Normal BP Less than 120/80. Elevated BP 120/80. Hypertension Stage 1: BP 130-139/80-89. Hypertesnion Stage 2: BP 140 or higher/90 or higher. Hypertension Crisis: BP higher than 180/120 Outcomes/Goals: Able to verbalize/achieve optimal blood pressure <130/80, Incorporates diet changes & exercise for blood pressure control by DC Interventions/plan: Instruct on optimal blood pressure, hypertension & medications, Instruct on effects of sodium, alcohol, stress, exercise &hypertension - Tobacco Cessation Referral Smoking Cessation Referral:: No Individual Education/Counseling:: No Education Schedule Given:: Yes Core - 30-Day Assessment Core - 60-Day Assessment Core - 90 Day Assessment Core - Final Assessment Psychosocial - Initial Assess - VIsit Date of Eval: 06/12/22 Session #:: 0 - Pre-cardiac Rehab Not Applicable: No History of previous Mental disease:: Yes History of Emotional Disorders: Depression - Psychosocial Test Tool Used:: [employer] QOL Cardiac, PHQ-9 Questionnaire phq-9 Severity: Severity. 1-4 Minimal Depression. 5-9 Mild Depression. 10-14 Moderate Depression. 15-19 Moderately Sever Depression. 20-27 Severe Depression. Rule: - Referral to Behavioral Health PS - Interventions: Yes Attend Stress Management Classes, No Referral to Behavioral Health if PHQ-9 score >9:, No Referral to [facility], No Referral to Physician if PHQ-9 if score is 5-9: - Outcomes/Goals: See list Psychosocial Outcomes/Goals:: ID's personal stressors & 2 strategies to manage stress by discharge - Intervention/Plan: See List Interventions/Plan:: Assess stressors,coping strategies & signs of derpression on admission, Instruct/assist pt to develop coping & personal stress Mgt strategies, Instruct patient to recognize signs & symptoms of depression, Instruct patient to recog Psychosocial - 30-Day Assess Psychosocial - 60-Day Assess Psychosocial - 90-Day Assess Psychosocial - Final Assessmen Patient Health Questionnaire Initial Assessment 1. Little interest or pleasure in doing things: Not at all 2. Feeling down, depressed, or hopeless: More than half the days 3. Trouble falling or staying asleep, or sleeping too much: Not at all 4. Feeling tired or having little energy: Several days 5. Poor appetite or overeating: Not at all 6. Feeling bad about yourself -- or that you are a failure or have let yourself or your family down: Several days 7. Trouble concentrating on things, such as reading the newspaper or watching television: Not at all 8. Moving or speaking so slowly that other people could have noticed. Or the opposite - being so fidgety or restless that you have been moving around a lot more than usual: Not at all How difficult have these problems made it for you to do your work, take care of things at home, or get along with other people?: Somewhat difficult Total Score: 4 LONNIE-Q SV Test - Statements CAD is a disease of the arteries in the heart: False Examples of risk factors for heart disease: True Angina is chest pain or discomfort: True The benefits of resistance training include: I Don't Know Eating more meat and dairy products: False Anti-platelet medications such as aspirin are important: I Don't Know The only effective way to manage stress: False An exercise warm-up slowly increases heart rate: True Prepared, processed foods usually have high sodium: True Depression is common after a heart attack: False The statin medications lower cholesterol: True To control blood pressure, lower the amount of sodium: True If someone gets chest discomfort during walking: False Transfats are partially hydrogenated vegetable oils: True Sleep apnea that is not treated increases the risk: I Don't Know To control cholesterol, one should become a vegetarian: False Someone knows if he/she is exercising at the right level: True Diabetes cannot be prevented with exercise & health eating: False Stress is a large risk for heart attack: True A diet that can help lower blood pressure is rich in: True - Total Score Total Correct Responses: 16 Self-Efficacy Initial Assessment We would like to know how confident you are in doing certain activities. Please select your confidence level for:: Select your confidence level for the following using the scale 1-10 where 1 is not at all confident and 10 is totally confident. Your score is the average of all 6 responses. Fatigue: How confident are you that you can keep the fatigue caused by your disease from interfering with the things you want to do? Select Number: 7 Physical Discomfort or Pain: How confident are you that you can keep the physical discomfort or pain of your disease from interfering with the things you want to do? Select Number: 7 Emotional Distress: How confident are you that you can keep the emotional distress caused by your disease from interfering with the things you want to do? Select Number: 7 Other Symptoms or Health Problems: How confident are you that you can keep other symptoms or health problems from interfering with the things you want to do? Select Number: 7 Different Tasks and Activities: How confident are you that you can do the different tasks and activities needed to manage your health condition so as to reduce your need to see a doctor? Select Number: 8 Medication: How confident are you that you can do things other than just taking medication to reduce how much your illness affects your everyday life? Select Number: 10 Total Score:: 7 Nutrition Survey - Nutrition Survey Initial Have you lost >10 lbs over the past 2 months without trying?: No Are you following a special diet at home for diabetes, low fat, or low salt?: Yes Are you interested in meeting with a dietitian for help understanding your diet?: No Do you eat less than 3 meals a day?: No Do you eat fatty meats (mary, sausage, ribs, etc), fried foods, desserts, large amounts of salad dressings, margarine, butter, or cheese most days?: No Do you have food allergies? [Enter types in comment field]: No Do you eat in restaurants more than 3 times a week?: No Do you season food with salt, seasoning salt, or garlic salt?: No Do you used canned, boxed, frozen meals, or soups, seasoning packets?: No Total Score:: 1
[2022-06-12 08:49] VITALS: BP 124/66; BP 130/78; PULSE 63; RESP 14; TEMP 37.1; O2SAT 96; BMI 25.4
[2022-06-12 09:24] VITALS: BP 124/66; BP 130/78; BMI 27.1
== END | disposition home or self-care (01) ==
PROVIDERS: PCP Family Medicine
DX: Z95.1 Presence of aortocoronary bypass graft (principal); I50.20 Unspecified systolic (congestive) heart failure; I11.0 Hypertensive heart disease with heart failure; I48.91 Unspecified atrial fibrillation; Z95.2 Presence of prosthetic heart valve; Z98.890 Other specified postprocedural states; N40.0 Benign prostatic hyperplasia without lower urinary tract symptoms; F32.A Depression, unspecified; E78.00 Pure hypercholesterolemia, unspecified; I44.7 Left bundle-branch block, unspecified; G90.9 Disorder of the autonomic nervous system, unspecified; I35.1 Nonrheumatic aortic (valve) insufficiency; E55.9 Vitamin D deficiency, unspecified; Z87.891 Personal history of nicotine dependence; R42 Dizziness and giddiness

== ENCOUNTER 2022-07-08 11:30 | Outpatient (RCR) | payer OTHER, SELFPAY ==
[2022-06-12 09:04] VITALS: BMI 27.1
== END 2022-07-08 23:59 ==
LOC: CR 11:30
PROVIDERS: PCP Family Medicine
DX: Z95.1 Presence of aortocoronary bypass graft (principal)
CPT/HCPCS: 93798

== ENCOUNTER 2022-08-07 11:30 | Outpatient (RCR) | payer OTHER, SELFPAY ==
[2022-06-12 09:24] VITALS: BMI 27.1
== END 2022-08-07 23:59 ==
LOC: CR 11:30
PROVIDERS: PCP Family Medicine
DX: Z95.1 Presence of aortocoronary bypass graft (principal); I10 Essential (primary) hypertension; I48.91 Unspecified atrial fibrillation
CPT/HCPCS: 93798

== ENCOUNTER 2022-09-07 11:30 | Outpatient (RCR) | payer OTHER, SELFPAY ==
[2022-06-12 09:24] VITALS: BMI 27.1
--- NOTE | 2022-08-12 10:49 | CR.ITP_ITS ---
Nutrition - Initial Assessment Weight Mgt (Other Care) Height: 5 ft 4 in Weight:: 166 lb BMI: 28.5 Core - Initial Assessment Hypertension Resting Blood Pressure:: 160/58 [place] [employer] Hypertension Guidelines Psychosocial - Initial Assess Target Goals Target Goals Patient Health Questionnaire PHQ-9 Screening 60-Day Re-eval Assessment: 1. Little interest or pleasure in doing things: Not at all 2. Feeling down, depressed, or hopeless: More than half the days 3. Trouble falling or staying asleep, or sleeping too much: Not at all 4. Feeling tired or having little energy: Several days 5. Poor appetite or overeating: Not at all 6. Feeling bad about yourself -- or that you are a failure or have let yourself or your family down: Several days 7. Trouble concentrating on things, such as reading the newspaper or watching television: Not at all 8. Moving or speaking so slowly that other people could have noticed. Or the opposite - being so fidgety or restless that you have been moving around a lot more than usual: Not at all How difficult have these problems made it for you to do your work, take care of things at home, or get along with other people?: Not difficult at all Total Score: 4 Self-Efficacy 6-Item Scale 60-Day Re-eval Assessment: We would like to know how confident you are in doing certain activities. Please select your confidence level for: Fatigue Select Number: 7 Physical Discomfort or Pain Select Number: 7 Emotional Distress Select Number: 7 Other Symptoms or Health Problems Select Number: 7 Different Tasks and Activities Select Number: 8 Medication Select Number: 10 Total Score:: 7 Nutrition Survey Nutrition Survey Instructions Scoring Instructions Exercise - 60-day Assessment Visit Date of Eval: 08/12/22 Session #:: 23 Physician Prescribed Exercise Modalities: Treadmill, Airdyne and NuStep Frequency: 3x/week for 12 weeks [36 sessions] Intensity: 60-80% of age predicted maximum heart rate reserve Current METSs:: 4 Target Heart Rate:: 97-112 Current RPE:: 11-12 Maximum Excercise HR:: 112 Resting Blood Pressure: 110/70 Maximum Exercise Blood Pressure: 160/58 EKG Type: Afib with BBB with rare pvc Outcomes & Goals Goals:: Verbalizes understanding of THR, RPE & goal METS by session 6, Documents in home exercise log/reports 30 min aerobic 5 day/wk by DC, Demonstrates accurate pulse taking by DC and Other additional outcome/goals: see below Intervention & Plan Exercise Program Goals: Instruct on personal THR & RPE, Instruct on MET level & personal MET goal, Show patient to take own pulse /validate performance until accurate, Instruct on home exercise and Other additional plan/int 30-day Reassessments 30 day Reassessments:: Progressing Reassessment Notes & Comments:: pulse taling demonstrated Physical Activity Home Exercise Physical Activity - Home Exercise: Safe Exercise, Warm-up, Self-monitoring, Cool-Down, Home Exercise > 30 min Daily and Sitting Time <3 hours/daily Outcomes & Goals Outcomes/Goals: Demonstrates correct Warm-up/exercise Cool-Down (S3) if = 2.5 METs, Verbalizes symptoms of exercise intolerance by Session 3 (S3), Demonstrate safe equipment use (S3) & follows exercise prescrition (6) and Other: See below Intervention & Plan Plan/Intervention: Instruct warm-up & cool-down if exercising at > 2 METs, Instruct on symptoms of exercise intolerance & actions to take, Instruct & monitor on saf, Assess intial functional capacity & safety risk and Other See below 30-day Reassessments 30 day Reassessments:: Progressing Reassessment Notes & Comments:: cool down encouraged Nutrition - 30-Day Assessment Weight Mgt (Other Care) Height: 5 ft 4 in Weight:: 166 lb BMI: 28.5 Nutrition - 60-Day Assessment Program Goals Nutrition Program Goals Patient has diagnosis of Hyperlipidemia (ICD E78)?: Yes Visit Date of Eval: 08/12/22 Session #:: 23 Cholesterol/Lipids (Other Core Measures) Determine presence & major risk factors that modify LDL goal: Hypertension or hypertensive medication, Low HDL cholesterol <40 mg/dL*, Family history of premature CHD in Male < 55 years: female <65 yearsFa and Age men > 45 years; women >/= 55 years Outcomes/Goals: Pt IDs own risk factors & lifestyle modifications by Session 10, Verbalizes symptoms of angina & response by session 3., Pt independently manages and Other Additional Outcomes/Goals: Intervention/Plan: Advocate for lipid panel cholesterol medication if applicable, Instruct on personal lipid levels & lipid goals/NCEP guidelines, Instruct on cholesterol and Other additional plan/int 30-day Reassessments:: Progressing Reassessment Notes & Comments:: pt encouraged to have bloodwork Diabetes (Other Core Measures) Diabetes Type: Not Applicable Weight Mgt (Other Care) Height: 5 ft 4 in Weight:: 166 lb BMI: 28.5 Diagnosis Overweight/Obesity BMI> 30% ICD-10 E66: No Diagnosis High BMI/Morbid Obesity BMI> 35% ICD-10 Z68: No 30 day Reassessments:: Progressing Reassessment Notes & Comments:: pt will attend nutrition class Healthy Eating Habits Will attend diet classes:: Yes Outcomes/Goals:: Consume diet rich in vegs,fruits,whole grain/high fiber,fish,lean meat, Limit sat/trans fats,cholesterol & added salts & sugars and Other additional outcome/goals: Intervention/Plan:: Assess current eating habits and Other Additional plan/interventions 30-day Reassessments:: Progressing Reassessment Notes & Comments:: pt will attend nutrition class Education Gave educational materials for:: Signs & symptoms of hypoglycemia, Signs & symptoms of hyperglycemia, Relate diabetes to coronary artery disease and Healthy eating Core - Final Assessment Hypertension Resting Blood Pressure:: 160/58 [place] [employer] Hypertension Guidelines Core - 60-Day Assessment Visit Date of Eval: 08/12/22 Session #:: 23 Medication Compliance Preventative Medication(s):: Aspirin, Statin/lipid and Warfarin/Coumadin H/O mental health issues: depression, anxiety, or addiction?: No Doesn?t believe in the benefits of treatment?: No Believes medications are unnecessary or harmful?: No Has a concern about medication side effects?: No Expresses concern over the cost of medications?: No Outcomes/Goals: Verbalizes medications,desired effect & common side effects @ DC, Pt self-reports following medication regimen, Keeps card in wallet w/medications listed by DC and Other additional outcome/goals: Interventions/plans: Instruct on medication effects & side effects, Review medication list w/patient every two weeks, Instruct importance of taking meds as ordered & assist problem solving and Other additional 30-day Reassessments:: Progressing Reassessment Notes & Comments:: encouraged to take meds Tobacco Use Tobacco Use: Non-smoker Hypertension Hypertension Diagnosis:: Hypertension ICD-10 I10 Resting Blood Pressure:: 110/70 Resting Blood Pressure:: 160/58 [place] [employer] Hypertension Guidelines Peak Exercise Blood Pressure:: 160/58 Outcomes/Goals: Able to verbalize/achieve optimal blood pressure <130/80, Incorporates diet changes & exercise for blood pressure control by DC and Other additional outcomes/goals Interventions/plan: Instruct on optimal blood pressure, hypertension & medications, Instruct on effects of sodium, alcohol, stress, exercise &hypertension and Other additional plan/interventions 30 day Reassessments:: Progressing Reassessment Notes & Comments:: pt encouraged to take his meds Tobacco Cessation Referral Smoking Cessation Referral:: No Individual Education/Counseling:: No Education Schedule Given:: Yes Psychosocial - 30-Day Assess Target Goals Target Goals Psychosocial - 60-Day Assess VIsit Date of Eval: 08/12/22 Session #:: 23 History of previous Mental disease:: Yes History of Emotional Disorders: Depression Target Goals Target Goals Psychosocial - 90-Day Assess Target Goals Target Goals Psychosocial - Final Assessmen Target Goals Target Goals Nutrition - 90-Day Assessment Weight Mgt (Other Care) Height: 5 ft 4 in Weight:: 166 lb BMI: 28.5 Nutrition - Final Assessment Weight Mgt (Other Care) Height: 5 ft 4 in Weight:: 166 lb BMI: 28.5
[2022-08-12 11:02] VITALS: BP 110/70; BP 160/58
[2022-08-12 11:03] VITALS: BMI 28.5
--- NOTE | 2022-09-09 08:33 | PCM.CR.ITP ---
Nutrition - Initial Assessment Weight Mgt (Other Care) Height: 5 ft 4 in Weight:: 169 lb 8 oz BMI: 29.0 Psychosocial - Initial Assess Target Goals Target Goals Patient Health Questionnaire PHQ-9 Screening 90-Day Re-eval Assessment: 1. Little interest or pleasure in doing things: Not at all 2. Feeling down, depressed, or hopeless: More than half the days 3. Trouble falling or staying asleep, or sleeping too much: Not at all 4. Feeling tired or having little energy: Several days 5. Poor appetite or overeating: Not at all 6. Feeling bad about yourself -- or that you are a failure or have let yourself or your family down: Several days 7. Trouble concentrating on things, such as reading the newspaper or watching television: Not at all 8. Moving or speaking so slowly that other people could have noticed. Or the opposite - being so fidgety or restless that you have been moving around a lot more than usual: Not at all How difficult have these problems made it for you to do your work, take care of things at home, or get along with other people?: Not difficult at all Total Score: 4 Self-Efficacy 6-Item Scale 90-Day Re-eval Assessment: We would like to know how confident you are in doing certain activities. Please select your confidence level for: Fatigue Select Number: 7 Physical Discomfort or Pain Select Number: 7 Emotional Distress Select Number: 7 Other Symptoms or Health Problems Select Number: 7 Different Tasks and Activities Select Number: 8 Medication Select Number: 10 Total Score:: 7 Nutrition Survey Nutrition Survey Instructions Scoring Instructions Exercise - 90-day Assessment Visit Date of Eval: 09/09/22 Session #:: 35 Physician Prescribed Exercise Modalities: Treadmill, Airdyne and NuStep Frequency: 3x/week for 12 weeks [36 sessions] Intensity: 60-80% of age predicted maximum heart rate reserve Duration: 30 - 45 minutes Current METSs:: 4 Target Heart Rate:: 97-112 Current RPE:: 11.5 Maximum Excercise HR:: 111 Resting Blood Pressure: 120/50 Maximum Exercise Blood Pressure: 156/66 EKG Type: Afib w/BBB and rare PVC Outcomes & Goals Goals:: Verbalizes understanding of THR, RPE & goal METS by session 6, Documents in home exercise log/reports 30 min aerobic 5 day/wk by DC, Demonstrates accurate pulse taking by DC and Other additional outcome/goals: see below Intervention & Plan Exercise Program Goals: Instruct on personal THR & RPE, Instruct on MET level & personal MET goal, Show patient to take own pulse /validate performance until accurate, Instruct on home exercise and Other additional plan/int 30-day Reassessments 30 day Reassessments:: Met Physical Activity Home Exercise Physical Activity - Home Exercise: Safe Exercise, Warm-up, Self-monitoring, Cool-Down, Home Exercise > 30 min Daily and Sitting Time <3 hours/daily Outcomes & Goals Outcomes/Goals: Demonstrates correct Warm-up/exercise Cool-Down (S3) if = 2.5 METs, Verbalizes symptoms of exercise intolerance by Session 3 (S3), Demonstrate safe equipment use (S3) & follows exercise prescrition (6) and Other: See below Intervention & Plan Plan/Intervention: Instruct warm-up & cool-down if exercising at > 2 METs, Instruct on symptoms of exercise intolerance & actions to take, Instruct & monitor on saf, Assess intial functional capacity & safety risk and Other See below 30-day Reassessments 30 day Reassessments:: Met Nutrition - 30-Day Assessment Weight Mgt (Other Care) Height: 5 ft 4 in Weight:: 169 lb 8 oz BMI: 29.0 Nutrition - 60-Day Assessment Weight Mgt (Other Care) Height: 5 ft 4 in Weight:: 169 lb 8 oz BMI: 29.0 Core - 90 Day Assessment Visit Date of Eval: 09/09/22 Session #:: 35 Medication Compliance Preventative Medication(s):: Aspirin, Statin/lipid and Warfarin/Coumadin H/O mental health issues: depression, anxiety, or addiction?: No Doesn?t believe in the benefits of treatment?: No Believes medications are unnecessary or harmful?: No Has a concern about medication side effects?: No Expresses concern over the cost of medications?: No Outcomes/Goals: Verbalizes medications,desired effect & common side effects @ DC, Pt self-reports following medication regimen, Keeps card in wallet w/medications listed by DC and Other additional outcome/goals: Interventions/plans: Instruct on medication effects & side effects, Review medication list w/patient every two weeks, Instruct importance of taking meds as ordered & assist problem solving and Other additional 30-day Reassessments:: Met Tobacco Use Tobacco Use: Non-smoker Hypertension Hypertension Diagnosis:: Hypertension ICD-10 I10 Resting Blood Pressure:: 120/50 Citizen Of [place] Heart Association Hypertension Guidelines Peak Exercise Blood Pressure:: 156/66 Outcomes/Goals: Able to verbalize/achieve optimal blood pressure <130/80, Incorporates diet changes & exercise for blood pressure control by DC and Other additional outcomes/goals Interventions/plan: Instruct on optimal blood pressure, hypertension & medications, Instruct on effects of sodium, alcohol, stress, exercise &hypertension and Other additional plan/interventions 30 day Reassessments:: Met Tobacco Cessation Referral Smoking Cessation Referral:: No Individual Education/Counseling:: No Education Schedule Given:: Yes Psychosocial - 30-Day Assess Target Goals Target Goals Psychosocial - 60-Day Assess Target Goals Target Goals Psychosocial - 90-Day Assess VIsit Date of Eval: 09/09/22 Session #:: 35 History of previous Mental disease:: Yes History of Emotional Disorders: Depression Target Goals Target Goals Psychosocial - Final Assessmen Target Goals Target Goals Nutrition - 90-Day Assessment Visit Date of Eval: 09/09/22 Session #:: 35 Cholesterol/Lipids (Other Core Measures) Determine presence & major risk factors that modify LDL goal: Hypertension or hypertensive medication, Low HDL cholesterol <40 mg/dL*, Family history of premature CHD in Male < 55 years: female <65 yearsFa and Age men > 45 years; women >/= 55 years Outcomes/Goals: Pt IDs own risk factors & lifestyle modifications by Session 10, Verbalizes symptoms of angina & response by session 3., Pt independently manages and Other Additional Outcomes/Goals: Intervention/Plan: Advocate for lipid panel cholesterol medication if applicable, Instruct on personal lipid levels & lipid goals/NCEP guidelines, Instruct on cholesterol and Other additional plan/int 30-day Reassessments:: Met Diabetes (Other Core Measures) Diabetes Type: Not Applicable Weight Mgt (Other Care) Height: 5 ft 4 in Weight:: 169 lb 8 oz BMI: 29.0 Diagnosis Overweight/Obesity BMI> 30% ICD-10 E66: No Diagnosis High BMI/Morbid Obesity BMI> 35% ICD-10 Z68: No Outcomes/Goals: Pt sets, maintains & shows weight loss goal & trend during rehab and Other additional outcomes/goals Intervention/Plan: Instruct on ideal BMI & set weight loss goal w/patient, Assist pt to ID & incorporate diet changes for weight loss by S9, Refer to Structured Weight Loss program as appropriate, Encourage goal of using 250-300dcal per session for weight loss and Other additional plan/interventions 30 day Reassessments:: Met Healthy Eating Habits Will attend diet classes:: Yes Outcomes/Goals:: Consume diet rich in vegs,fruits,whole grain/high fiber,fish,lean meat, Limit sat/trans fats,cholesterol & added salts & sugars and Other additional outcome/goals: Intervention/Plan:: Assess current eating habits and Other Additional plan/interventions 30-day Reassessments:: Met Education Gave educational materials for:: Signs & symptoms of hypoglycemia, Signs & symptoms of hyperglycemia, Relate diabetes to coronary artery disease and Healthy eating Nutrition - Final Assessment Weight Mgt (Other Care) Height: 5 ft 4 in Weight:: 169 lb 8 oz BMI: 29.0
[2022-09-09 08:43] VITALS: BP 120/50; BMI 29.0
== END 2022-09-07 23:59 ==
LOC: CR 11:30
PROVIDERS: PCP Family Medicine
DX: Z95.1 Presence of aortocoronary bypass graft (principal); I10 Essential (primary) hypertension; I48.91 Unspecified atrial fibrillation
CPT/HCPCS: 93798

== ENCOUNTER 2022-09-09 11:12 | Outpatient (RCR) | payer OTHER, SELFPAY ==
[2022-09-09 11:08] VITALS: BMI 28.5
== END 2022-10-08 23:59 ==
LOC: CR 11:12
PROVIDERS: PCP Family Medicine
DX: Z95.1 Presence of aortocoronary bypass graft (principal); Z95.2 Presence of prosthetic heart valve
CPT/HCPCS: 93798

== ENCOUNTER → 2024-11-06 | Outpatient (CLI) | payer OTHER, SELFPAY ==
[2024-11-06 16:30] LABS: PSA,Total - Annual Screen 1.23 ng/mL (0.02-4.00)
--- OUTSIDE RECORDS SUMMARY | 2024-11-07 05:57 | XMS RPT_ITS ---
Author Organization [facility] Purpose PROBLEMS No Problem Records Found PROCEDURES No Procedure Records Found VITAL SIGNS No Vital Signs Records Found RESULTS CNPN Observed: 06/13/2024 12:00 AM Status: COMPLETED Source: [facility] Telephone ([facility]) SHARITA TRAN ([id number]) [address] [facility] Date Time Provider Department 06/13/24 ANDREW HUDSON [facility] During your visit today, we recorded the following information about you: Danitza Snow RN 06/13/2024 8:50 AM Signed [facility] Phone Encounter DATE of SERVICE: 06/13/2024 TIME of SERVICE: 8:48 AM Status: [facility] Service/Provider: Cardiac Surgery Andrew Hudson M.D. Reason for call: Care Coordination Contact information: [phone] Resolution: Other : Emailed document Comments: Pt called requesting a copy of his Operative Report to be emailed to him for purposes of applying for disability. Document sent, advised to call back if any further documentation is needed. Pt verbalizes understanding. Danitza Snow RN Date of Resolution: 06/13/2024 Time of Resolution 8:48 AM Allergies As of Date: 06/13/2024 Noted Allergy Reaction PENICILLINS 12/26/1992 2 - Rash FINASTERIDE 11/12/2010 14 - Other: See Comments Comments: dizziness LISINOPRIL 11/28/2012 3 - Cough 14 - Other: See Comments SPIRONOLACTONE 03/02/2019 14 - Other: See Comments Comments: dizziness Date Reviewed: 05/05/2022 Reviewed by: María Ott, RN - Fully Assessed Prescriptions as of 06/13/2024 - sacubitril-valsartan (ENTRESTO) 24-26 mg tablet Take 1 tablet by mouth twice daily. Do not take with cozar. - metOLazone (ZAROXOLYN) 2.5 mg tablet 2.5 mg. Take once weekly on Wednesdays. - furosemide (LASIX) 40 mg tablet Take 1 tablet by mouth once daily. - potassium chloride 20 mEq/15 mL solution Take 30 mL by mouth once daily. - atorvastatin (LIPITOR) 40 mg tablet Take 1 tablet by mouth daily at bedtime. - aspirin, enteric coated (ASPIRIN, ENTERIC COATED) 81 mg EC tablet Take 81 mg by mouth once daily. - acetaminophen (TYLENOL) 500 mg tablet Take 500 mg by mouth every 4 hours as needed. - busPIRone (BUSPAR) 10 mg tablet Take 10 mg by mouth twice daily. - carvedilol (COREG) 6.25 mg tablet Take 0.5 tablets by mouth twice daily. - cholecalciferol (VITAMIN D3) 1,000 unit tab tablet Take 2 tablets by mouth once daily. - citalopram (CELEXA) 20 mg tablet Take 20 mg by mouth once daily. - cyanocobalamin (VITAMIN B-12) 1,000 mcg tab Take 1 tablet by mouth once daily. - loratadine (CLARITIN) 10 mg tablet Take 1 tablet by mouth once daily as needed. - losartan (COZAAR) 25 mg tablet Take 0.5 tablets by mouth once daily. - tamsulosin (FLOMAX) 0.4 mg Take 0.4 mg by mouth daily at bedtime. - warfarin (COUMADIN) 2.5 mg tablet Take by mouth. - MULTIVITAMIN ORAL Take 1 tablet by mouth once daily. Problem List As Of Date 06/13/2024 Noted Resolved Severe mitral valve regurgitation [I34.0] 03/04/2022 PAF (paroxysmal atrial fibrillation) (HCC) [I48*03/04/2022 Acute on chronic systolic congestive heart fail* CAD (coronary artery disease) [I25.10] Discharge planning issues [Z75.8] 03/04/2022 Preop testing [Z01.818] 03/04/2022 H/O heart valve replacement with mechanical medina*03/05/2022 Primary hypertension [I10] 03/05/2022 Hyperlipidemia [E78.5] 03/05/2022 Thoracic ascending aortic aneurysm [I71.21] 03/05/2022 03/10/2022 Depression [F32.A] 03/05/2022 Atelectasis [J98.11] 03/05/2022 03/10/2022 Stress hyperglycemia [R73.9] 03/05/2022 03/10/2022 Postoperative pain [G89.18] 03/05/2022 03/10/2022 Coagulopathy (HCC) [D68.9] 03/05/2022 03/07/2022 Acute blood loss anemia [D62] 03/05/2022 03/08/2022 PEPITO (acute kidney injury) (HCC) [N17.9] 03/06/2022 03/10/2022 Atrial flutter (HCC) [I48.92] 03/08/2022 03/10/2022 Summary [Z91.89] 03/10/2022 Chronic systolic dysfunction of left ventricle *03/27/2022 Encounter Status:Closed by DANITZA SNOW on 06/13/24 ALLERGIES No Allergies Records Found ENCOUNTERS No Encounter Records Found FUNCTIONAL STATUS No Functional Status Records Found EQUIPMENT No Equipment Records Found PAYERS No Payer Records Found SOCIAL HISTORY No Social History Records Found FAMILY HISTORY No Family History Records Found No Status Records Found ADVANCE DIRECTIVES No Advanced Directives Records Found INFORMATION SOURCE DATE CREATED AUTHOR AUTHOR'S JEFFREY KIDD 11/07/2024 EFREN
== END | disposition home or self-care (01) ==
LOC: MFPLAB 12:07
PROVIDERS: PCP Family Medicine
DX: Z12.5 Encounter for screening for malignant neoplasm of prostate (principal)
CPT/HCPCS: 36415; 84153; G0103

== ENCOUNTER → 2024-12-26 | Outpatient (CLI) | payer MEDICARE, SELFPAY ==
--- OUTSIDE RECORDS SUMMARY | 2024-12-26 19:10 | XMS RPT_ITS | CCD ---
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 Name Role Phone SYL THURMAN DO Primary Care Physician Mandie MAN, Nikolay Unavailable Mandie MAN, Nikolay Unavailable David MAN, Heba Unavailable Syl Ray Primary Care Provider NIKOLAY LOCKWOOD MD Attending U JOSE D Branham MD Consulting Unavailable SYL THURMAN DO Primary Care Unavailable NIKOLAY LOCKWOOD MD Consulting U NIKOLAY Driscoll MD Attending U navsrinathable CUCA PALMA, SYL Primary Care Unavailable NIKOLAY LOCKWOOD MD Attending U navailable CUCA , SYL Primary Care Unavailable NIKOLAY LOCKWOOD MD Attending U navailable CUCASYL [place] DO Primary Care Unavailable NIKOLAY LOCKWOOD MD Attending U navailable CUCA , SYL Primary Care Unavailable NIKOLAY LOCKWOOD MD Attending U navailable CUCA , SYL Primary Care Unavailable CUCA DO, SYL Primary Care Unavailable NIKOLAY LOCKWOOD MD Attending U navsrinathable CUCA DO, SYL Primary Care Unavailable JOSE D MARIE MD Attending Unavailable MANAS LOCO-PHOTOENGRAVING PHOTOGRAPHER, JANEY Attending U navailable CUCA PALMA, SYL Primary Care Unavailable Mandie MAN, Nikolay Unavailable David MAN, Heba Unavailable Syl Ray MD Primary Care Provider Mandie MAN, Prakm Unavailable Syl Ray MD Primary Care Provider Dr. Fred Orozco MD Primary Care Physician Vijayaorrow MEDICAL STAFF ASSISTANTAdam Berumen Attending Physician [phone] Fred Orozco [facility] Attending Unavailable Allergies Allergy Classification Reported Allergen(s) Allergy Type Date of Onset Reaction(s) Facility (8 sources) Ampicillin; Translations: [ampicillin] Drug Allergy RASH, ITCHING [facility] (20 sources) Lisinopril; Translations: [lisinopril] Drug Allergy 3 Cough, Other: See Comments [facility] Comment on above: cough (8 sources) Penicillin; Translations: [penicillin] Drug Allergy rash/itching [facility] (20 sources) Finasteride; Translations: [finasteride] Drug Allergy 1 Other: See Comments, Dizziness (finding) [facility] (20 sources) Penicillins; Translations: [Penicillins] Allergy to substance 199 3 Rash [facility] (20 sources) Spironolactone; Translations: [spironolactone] Drug Allergy 0 Other: See Comments, Dizziness (finding) [facility] (1 source) Finasteride Drug Allergy 2 [facility] (1 source) Lisinopril Drug Allergy 2 [facility] (1 source) Spironolactone Drug Allergy 2 [facility] Medications Current Medications Medication Drug Class(es) Dates Sig (Normalized) Sig (Original) acetaminophen 325 mg oral tablet (20 sources) Start: 03-13-2022 End: 04-12-2022 take 2 tablets by mouth every six hours as needed acetaminophen (TYLENOL) 325 mg tablet Take 2 tablets by mouth every 6 hours as needed for pain. 0 03/13/2022 04/12/2022 Active Start: 06-21-2009 take 1 tablet by moira th every four hours as needed acetaminophen (TYLENOL) 500 mg tablet Take 500 mg by mouth every 4 hours as needed. 06/21/2009 Active Comment on above: Take 500 mg by mouth every 4 hours as needed. Take 2 tablets by mo uth every 6 hours as needed for pain. aspirin 81 mg oral tablet (20 sources) Platelet Aggregation Inhibitor, Nonsteroidal Anti-inflammatory Drug Start: 05-07-2021 take 1 tablet by mouth once daily Start: 01-06-2009 aspirin 81 mg, PO, Daily, 0, 0 Start Date: 01/06/09 Status: Ordered Start: 01-06-2009 take 1 tablet by mouth once da tiffanie aspirin, enteric coated (ASPIRIN, ENTERIC COATED) 81 mg EC tablet Take 81 mg by mouth once daily. 01/06/2009 Active Comment on above: Take 81 mg by mouth once daily. atorvastatin 40 mg oral tablet (20 sources) HMG-CoA Reductase Inhibitor Start: 06-12-2022 take 1 tablet by mouth at bedtime Start: 03-13-2022 End: 04-12-2022 take 1 tablet by mouth once daily at bedtime atorvastatin (LIPITOR) 40 mg tablet Take 1 tablet by mouth daily at bedtime. 30 tablet 2 03/13/2022 Active Comment on above: Take 1 tablet by moira th daily at bedtime. busPIRone hydrochloride 10 mg oral tablet (20 sources) Start: 04-01-2020 take 1 tablet by mouth twice daily Comment on above: Take 10 mg by mouth twice daily. carvedilol 6.25 mg oral tablet (20 sources) alpha-Adrenergic Luis Manuel, beta-Adrenergic Luis Manuel Start: 05-07-2021 take 3.125 mg by mouth twice daily Start: 05-07-2021 take 3.125 mg by moira th twice daily Carvedilol Active 3.125 MG PO TWICE A DAY May 07, 2021 12:00am Start: 04-01-2020 take 0.5 tablet by m outh twice daily carvedilol (COREG) 6.25 mg tablet Take 0.5 tablets by mouth twice daily. 04/01/2020 Active Start: 04-01-2020 carvedilol 6.2 5 mg oral tablet Dose : 3.125 mg = 0.5 tab(s), Oral, BIDM, # 180 tab(s), 0 Refill(s) Start Date: 04/01/20 Status: Ordered Comment on above: Take 0.5 tablets by mouth twice daily. cholecalciferol 0.025 mg oral tablet (20 sources) Vitamin D Start: 11-14-19 take 2 tablets by mouth once daily cholecalciferol (VITAMIN D3) 1,000 unit tab tablet Take 2 tablets by mouth once daily. 11/13/2021 Active Start: 05-07-2021 take 1 tablet by moira th once daily Start: 04-01-2020 cholecalcifero l 1000 intl units (25 mcg) oral capsule Dose : 2,000 International_Unit = 2 cap(s), Oral, Daily, # 30 cap(s), 0 Refill(s) Start Date: 04/01/20 Status: Ordered Start: 04-01-2020 cholecalcifero l 1000 intl units (25 mcg) oral capsule Dose : 2,000 International_Unit = 2 cap(s), Oral, Daily, # 30 cap(s), 0 Refill(s) Start Date: 04/01/20 Status: Ordered Comment on above: Take 2 tablets by mo [facility] once daily. citalopram 20 mg oral tablet (20 sources) Serotonin Reuptake Inhibitor Start: 12-31-2008 take 1 tablet by mouth once daily Start: 12-31-2008 citalopram 20 mg, = 0, PO, Daily, 0 Start Date: 12/31/08 Status: Ordered Comment on above: Take 20 mg by mouth once daily. doxycycline hyclate 100 mg oral tablet (1 source) Tetracycline-class Drug Start: 04-30-2021 take 1 tablet by mouth twice daily doxycycline hyclate 100 mg oral tablet take 1 tablet by mouth twice a day Start Date: 04/30/21 Status: Ordered furosemide 40 mg oral tablet (20 sources) Loop Diuretic Start: 04-02-2021 take 1 tablet by mouth once daily as needed for edema Start: 04-02-2021 take 1 tablet by moira th twice daily furosemide (LASIX) 40 mg tablet Take 1 tablet by mouth twice daily. 0 04/02/2021 Suspended Comment on above: Take 1 tablet by moira th twice daily. Take 1 tablet by moira th once daily. gabapentin 100 mg oral capsule (19 sources) Anti-epileptic Agent Start: 06-12-2022 take 2 capsules by mouth three times daily Start: 06-12-2022 take 200 mg by mouth three times daily Gabapentin Active 200 MG PO THREE TIMES A DAY June 12, 2022 12:00am Start: 05-23-2021 gabapentin 100 mg oral capsule Dose : 200 mg = 2 cap(s), Oral, TID, # 180 cap(s), 0 Refill(s), 80.8 Start Date: 05/23/21 Status: Ordered Start: 05-06-2021 End: 03-04-2022 take 2 capsules by mouth three times daily gabapentin (NEURONTIN) 100 mg capsule Take 200 mg by mouth three times daily. 0 05/06/2021 03/04/2022 Discontinued (Discontinued by Patient) Comment on above: Take 200 mg by mouth three times daily. loratadine 10 mg oral capsule (20 sources) Start: 05-23-2021 loratadine 10 mg oral capsule Dose : 10 mg = 1 cap(s), Oral, qDay, # 10 cap(s), 0 Refill(s) Start Date: 05/23/21 Status: Ordered Start: 06-17-2020 take 1 tablet by moira th once daily as needed loratadine (CLARITIN) 10 mg tablet Take 1 tablet by mouth once daily as needed. 06/17/2020 Active Comment on above: Take 1 tablet by moira th once daily as needed. losartan potassium 25 mg ora l tablet (20 sources) Angiotensin 2 Receptor Luis Manuel Start: 06-12-2022 Start: 06-12-2022 take 12.5 mg by mouth once khari ly Losartan Active 12.5 MG PO DAILY June 12, 2022 12:00am Start: 01-23-2022 losartan 25 mg oral tablet Dose : 25 mg = 1 tab(s), Oral, qDay, # 90 tab(s), 3 Refill(s), Pharmacy: [facility] #[id number], 167.6, cm, 01/23/22 10:07:00 EST, Height, kg, 01/23/22 10:07:00 EST, Dosing Weight Start Date: 01/23/22 Status: Ordered Start: 12-01-2021 take 0.5 tablet by m outh once daily losartan (COZAAR) 25 mg tablet Take 0.5 tablets by mouth once daily. 12/01/2021 Active Start: 04-30-2021 losartan 25 mg oral tablet Dose : 12.5 mg = 0.5 tab(s), Oral, qDay, # 15 tab(s), 3 Refill(s), Pharmacy: [id number], cm, 04/30/21 11:36:00 EDT, Height, kg, 04/30/21 11:36:00 EDT, Dosing Weight Start Date: 04/30/21 Status: Ordered Start: 04-02-2021 losartan 25 mg oral tablet Dose : 25 mg = 1 tab(s), Oral, qDay, # 30 tab(s), 3 Refill(s), Pharmacy: [facility], 167, cm, 04/02/21 10:51:00 EST, Height, kg, 04/02/21 10:51:00 EST, Dosing Weight Start Date: 04/02/21 Status: Ordered Comment on above: Take 0.5 tablets by mouth once daily. metOLazone 2.5 mg oral tablet (20 sources) Thiazide-like Diuretic Start: 2 metOLazone (ZAROXOLYN) 2.5 mg tablet 2.5 mg. Take once weekly on Wednesdays. 04/30/2021 Active Comment on above: Take 1 tablet by moira th as directed. Wednesday and 2.5 mg. Take once we ekly on Wednesdays. Multiple Vitamins oral capsule (6 sources) Start: 2 take 1 capsule by mouth once daily Multiple Vitamins oral capsule Dose = 1 cap(s), Oral, Daily, 0 Refill(s) Start Date: 05/23/21 Status: Ordered MULTIVITAMIN ORAL (20 sources) Start: 2 take 1 tablet by mouth once daily MULTIVITAMIN ORAL Take 1 tablet by mouth once daily. 06/09/2021 Active Start: 06-09-2021 take 1 tablet by moira th once daily MULTIVITAMIN ORAL Take 1 tablet by mouth once daily. 0 06/09/2021 Suspended Start: 06-09-2021 take 1 tablet by moira th once daily MULTIVITAMIN ORAL Take 1 tablet by mouth once daily. 0 06/09/2021 Active Comment on above: Take 1 tablet by moira th once daily. Multivitamin With Minerals (6 sources) Start: 05-07-2021 take 1 tablet by mouth once daily Multivitamin With Minerals Active 1 TABLET PO DAILY May 07, 2021 10:01am Start: 05-07-2021 take 1 tablet by moira th once daily Multivitamin With Minerals Active 1 TABLET PO DAILY May 07, 2021 12:00am Multivitamin With Minerals Tablet (1 source) Start: 05-07-2021 oxyCODONE hydrochloride 5 mg oral tablet (1 source) Opioid Agonist Start: 03-13-2022 End: 03-20-2022 take 1 tablet by mouth every six hours as needed for pain oxyCODONE IR (ROXICODONE) 5 mg immediate release tablet Indications: Atherosclerosis of coronary artery of [place] heart, unspecified vessel or lesion type, unspecified whether angina present , Mitral valve disorder Take 1 tablet by mouth every 6 hours as needed for pain for up to 7 days. 28 tablet 0 03/13/2022 03/20/2022 Active Comment on above: Take 1 tablet by moira th every 6 hours as needed for pain for up to 7 days. perflutren lipid microspheres 1.3 mL in NaCl (PF) 0.9% 10 mL injection (DEFINITY) (11 sources) Start: 05-05-2022 End: 08-04-2023 perflutren lipid microspheres 1.3 mL in NaCl (PF) 0.9% 10 mL injection (DEFINITY) Start: 03-11-2022 End: 05-05-2022 perflutren lipid microsphere s 1.3 mL in NaCl (PF) 0.9% 10 mL injection (DEFINITY) Start: 03-11-2022 End: 06-10-2023 perflutren lipid microsphere s 1.3 mL in NaCl (PF) 0.9% 10 mL injection (DEFINITY) Potassium (7 sources) Start: 05-07-2021 Potassium Acti ve MG PO May 07, 2021 10:01am Start: 05-07-2021 Start: 05-07-2021 Potassium Acti ve MG PO May 07, 2021 12:00am potassium chloride 1.33 meq/ml oral solution (20 sources) Start: 03-13-2022 take 30 mL by mouth once daily potassium chloride 20 mEq/15 mL solution Take 30 mL by mouth once daily. 03/13/2022 Active Start: 12-03-2021 potassium chlo ride 20 mEq/15 mL solution TAKE 30ML BY MOUTH TWICE A DAY (MIX DOSE WITH 4 OUNCES OF WATER OR OTHER LIQUID; TAKE WITH FOOD) 0 12/03/2021 Suspended Start: 08-08-2021 potassium chlo ride 20 mEq oral tablet, extended release Dose : 20 mEq = 1 tab(s), Oral, QID, Take with food., # 60 tab(s), 0 Refill(s) Start Date: 08/08/21 Status: Ordered Start: 04-30-2021 potassium chlo ride 20 mEq oral tablet, extended release Dose : 20 mEq = 1 tab(s), Oral, BID, Take with food., # 60 tab(s), 3 Refill(s), Pharmacy: [address], [address], cm, 04/30/21 11:36:00 EDT, Height, kg, 04/30/21 11:36:00 EDT, Dosing Weight Start Date: 04/30/21 Status: Ordered Comment on above: TAKE 30ML BY MOUTH T WICE A DAY (MIX DOSE WITH 4 OUNCES OF WATER OR OTHER LIQUID; TAKE WITH FOOD) Take 30 mL by mouth once daily. potassium iodide 1000 mg/ml oral solution (2 sources) Start: 03-18-2022 take 1 dose by mouth once daily potassium iodide 1 g/mL oral solution Dose : 30 gram(s) = 30 mL, Oral, Daily, 20meq/15ml, 0 Refill(s) Start Date: 03/18/22 Status: Ordered pravastatin sodium 80 mg oral tablet (20 sources) HMG-CoA Reductase Inhibitor Start: 09-15-2021 pravastatin 80 mg oral tablet Dose : 80 mg = 1 tab(s), Oral, qHS, 0 Refill(s) Start Date: 09/15/21 Status: Ordered Start: 05-07-2021 End: 06-12-2022 Pravastatin 80 mg Tablet Discontinued 40 mg PO AT BEDTIME May 07, 2021 12:00am June 12, 2022 8:34am Start: 05-07-2021 End: 06-12-2022 take 40 mg by mouth at bedtime Pravastatin Discontinue d 40 MG PO AT BEDTIME May 07, 2021 12:00am June 12, 2022 8:34am Start: 08-22-2008 pravastatin 40 mg, PO, Once a day (at bedtime), 0, 0 Start Date: 08/22/08 Status: Ordered Start: 08-22-2008 take 40 mg by mouth once daily pravastatin sodium (PRAVASTATIN ORAL) Take 40 mg by mouth once daily. 0 08/22/2008 Suspended Comment on above: Take 40 mg by mouth once daily. sacubitril 24 mg / valsartan 26 mg oral tablet (8 sources) Angiotensin 2 Receptor Luis Manuel Start: 3 take 1 tablet by mouth twice daily sacubitril-valsar fox (ENTRESTO) 24-26 mg tablet Take 1 tablet by mouth twice daily. Do not take with cozar. 90 tablet 1 05/05/2022 Active Comment on above: Take 1 tablet by moira twice daily. Do not take with cozar. 125 ml sodium chloride 9 mg/ml prefilled syringe (11 sources) Start: 3 End: 4 sodium chloride 0.9 % (flush) 10 mL (BD POSIFLUSH) tamsulosin hydrochloride 0.4 mg oral capsule (20 sources) alpha-Adrenergic Luis Manuel Start: 1 take 1 capsule by mouth at bedtime Comment on above: Take 0.4 mg by mouth daily at bedtime. vitamin b12 1 mg oral tablet (20 sources) Vitamin B12 Start: 1 take 1 tablet by mouth once daily Start: 04-01-2020 cyanocobalamin 100 mcg oral tablet Dose : 100 mcg = 1 tab(s), Oral, qDay, # 30 tab(s), 0 Refill(s) Start Date: 04/01/20 Status: Ordered Comment on above: Take 1 tablet by moira once daily. warfarin sodium 2.5 mg oral tablet (20 sources) Vitamin K Antagonist Start: 04-01-2020 take 1 tablet by mouth once daily Start: 04-01-2020 warfarin 5 mg oral tablet See Instructions, as instructed by [place] physician, 0 Refill(s) Start Date: 04/01/20 Status: Ordered Comment on above: Take by mouth. Completed/Discontinued Medications Medication Drug Class(es) Dates Sig (Normalized) Sig (Original) docusate sodium 50 mg / sennosides, long-term 8.6 mg oral tablet (7 sources) Start: 03-13-2022 End: 05-05-2022 take 1 tablet by mouth every twelve hours as needed senna-docusate (SENNA-S) 8.6-50 mg per tablet Take 1 tablet by mouth twice daily as needed for constipation. 20 tablet 0 03/13/2022 05/05/2022 Discontinued Comment on above: [facility] as needed for constipation. 0.8 ml enoxaparin sodium 100 mg/ml prefilled syringe (3 sources) Low Molecular Weight Heparin Start: 09-15-2021 End: 09-22-2021 inject 0.7 mL by subcutaneous injection every twelve hours Lovenox 80 mg/0.8 mL injectable solution Dose : 70 mg = 0.7 mL, Subcutaneous, q12h, # 11.2 mL, 0 Refill(s) Start Date: 09/15/21 Stop Date: 09/22/21 Status: Ordered Start: 09-03-2021 End: 09-08-2021 Lovenox 80 mg/0.8 mL injecta ble solution Dose : 70 mg = 0.7 mL, Subcutaneous, q12h, Start 09/03/21 PM. Last dose 09/04/21 AM. Resume after cath for 4 days, X 5 day(s), # 7 mL, 0 Refill(s), 09/08/21 8:43:00 EDT, Pharmacy: [facility] #[id number], 167.6, cm, 07/30/21 13:25:00 EDT, Height Start Date: 09/03/21 Stop Date: 09/08/21 Status: Ordered mupirocin 0.02 mg/mg topical ointment (2 sources) RNA Synthetase Inhibitor Antibacterial Start: 03-04-2022 mupirocin (BACTROBAN ) 2 % ointment Apply a small amount in each nostril using a cotton swab twice the day before surgery and once the morning of surgery. 22 g 0 03/04/2022 Suspended Comment on above: Apply a small amount in each nostril using a cotton swab twice the day before surgery and once the morning of surgery. Problems Active Problems Problem Classification Problem Date Documented Date Episodic/Chronic Calculus of urinary tract (8 sources) Kidney stone 03-08-2020 Episodic Cardiac dysrhythmias (20 sources) Atrial fibrillation; Translations: [Paroxysmal atrial fibrillation] Onset: 09-15-2021 Resolved: 03-10-2022 03-08-2020 Chronic Complication of device; implant or graft (1 source) Arteriosclerosis of coronary artery bypass graft; Translations: [Atherosclerosis of coronary artery bypass graft(s) without angina pectoris] Chronic Conditions associated with dizziness or vertigo (16 sources) Dizziness; Translations: [Postural dizziness] 03-08-2020 Episodic Comment on above: CHRONIC SINCE SECOND AORTIC VALVE SURGERY Conduction disorders (7 sources) Left bundle branch block 04-30-2021 Chronic Congestive heart failure; nonhypertensive (20 sources) Acute on chronic systolic heart failure; Translations: [Left ventricular cardiac dysfunction] Onset: 09-15-2021 04-02-2021 Chronic Comment on above: EF 40-45% PER MUGA 2 AND 2008 Coronary atherosclerosis and other heart disease (20 sources) Coronary atherosclerosis; Translations: [Atherosclerotic heart disease of [place] coronary artery without angina pectoris] Onset: 09-15-2021 Chronic Disorders of lipid metabolism (20 sources) Hyperlipidemia; Translations: [Hyperlipidemia, unspecified] Onset: 09-15-2021 03-08-2020 Chronic Essential hypertension (16 sources) Essential hypertension; Translations: [Essential (primary) hypertension] Onset: 03-05-2022 03-12-2022 Chronic Heart valve disorders (20 sources) Aortic valve disorder; Translations: [Mitral valve regurgitation] Onset: 09-15-2021 03-08-2020 Chronic Comment on above: echo done 09/24/2016- AV metallic prosthesis is present- Trace AR- LVEF 40-45% S/P VALVE REPAIR IN 1988 AT [facility]. Status post aortic valve replacement with 25 mm ONX valve performed December 31, 2008 Mood disorders (15 sources) Depressive disorder; Translations: [Depression] Onset: 03-05-2022 03-12-2022 Chronic Nonspecific chest pain (2 sources) Chest pain 03-18-2022 Episodic Occlusion or stenosis of precerebral arteries (8 sources) Left carotid artery stenosis 03-08-2020 Chronic Comment on above: LEFT CAAROTID ENDART ERECTOMY 06/28/2009 Open wounds of extremities (10 sources) Open wounds involving multiple regions of lower limb(s); Translations: [Unspecified open wound, unspecified lower leg, initial encounter] Episodic Other aftercare (1 source) Surgical follow-up; Translations: [Encounter for follow-up examination after completed treatment for conditions other than malignant neoplasm] Episodic Other and ill-defined heart disease (14 sources) Chronic systolic dysfunction of left ventricle; Translations: [Heart disease, unspecified] Onset: 03-27-2022 Chronic Other circulatory disease (8 sources) Disorder of carotid artery 04-01-2020 Chronic Other circulatory disease (1 source) Disorder of artery; Translations: [Disorder of arteries and arterioles, unspecified] Onset: 09-15-2021 Chronic Other circulatory disease (1 source) Other specified symptoms and signs involving the circulatory and respiratory systems; Translations: [Other symptoms involving cardiovascular system] Episodic Other circulatory disease (1 source) Orthostatic hypotension; Translations: [Orthostatic hypotension] Episodic Other lower respiratory disease (5 sources) Dyspnea; Translations: [Shortness of breath] Episodic Other nutritional; endocrine; and metabolic disorders (8 sources) Obesity 04-01-2020 Chronic Other screening for suspected conditions (not mental disorders or infectious disease) (1 source) Encounter for screening for malignant neoplasm of prostate; Translations: [Encounter for screening for malignant neoplasm of prostate] Onset: 11-10-2024 Episodic [place]-; endo-; and myocarditis; cardiomyopathy (except that caused by tuberculosis or sexually transmitted disease) (9 sources) Cardiomyopathy; Translations: [Cardiomyopathy, unspecified] Onset: 09-15-2021 04-01-2020 Chronic Peripheral and visceral atherosclerosis (10 sources) Vascular disorder of lower extremity; Translations: [Peripheral vascular disease, unspecified] Chronic Residual codes; unclassified (8 sources) Increased body mass index 03-08-2020 Episodic Residual codes; unclassified (7 sources) Bilateral lower limb edema; Translations: [Localized edema] 05-07-2021 Episodic Residual codes; unclassified (3 sources) Localized edema; Translations: [Edema] Episodic Residual codes; unclassified (2 sources) History of repair of mitral valve; Translations: [Other specified postprocedural states] Episodic Unclassified (8 sources) History of mechanical aortic valve replacement 04-01-2020 Unclassified (8 sources) LICE by Dr. Gooden( Confirmed ) Onset: 06-28-2009 06-28-2009 Past or Other Problems Problem Classification Problem Date Documented Date Episodic/Chronic Acute and unspecified renal failure (3 sources) Acute renal failure syndrome; Translations: [Acute kidney failure, unspecified] Onset: 03-06-2022 Resolved: 03-10-2022 03-10-2022 Episodic Acute posthemorrhagic anemia (3 sources) Acute posthemorrhagic anemia; Translations: [Acute posthemorrhagic anemia] Onset: 03-05-2022 Resolved: 03-08-2022 03-08-2022 Episodic Administrative/social admission (20 sources) Patient encounter status; Translations: [Counseling, unspecified] Onset: 03-04-2022 Episodic Aortic; peripheral; and visceral artery aneurysms (3 sources) Aneurysm of ascending aorta; Translations: [Thoracic ascending aortic aneurysm] Onset: 03-05-2022 Resolved: 03-10-2022 03-10-2022 Chronic Coagulation and hemorrhagic disorders (3 sources) Blood coagulation disorder; Translations: [Coagulation defect, unspecified] Onset: 03-05-2022 Resolved: 03-07-2022 03-07-2022 Chronic Diabetes mellitus without complication (3 sources) Metabolic stress hyperglycemia; Translations: [Hyperglycemia, unspecified] Onset: 03-05-2022 Resolved: 03-10-2022 03-10-2022 Episodic Other nervous system disorders (3 sources) Postoperative pain ; Translations: [Other acute postprocedural pain] Onset: 03-05-2022 Resolved: 03-10-2022 03-10-2022 Episodic Pleurisy; pneumothorax; pulmonary collapse (3 sources) Atelectasis; Translations: [Atelectasis] Onset: 03-05-2022 Resolved: 03-10-2022 03-10-2022 Episodic Residual codes; unclassified (15 sources) Finding related to care delivery; Translations: [Other specified personal risk factors, not elsewhere classified] Onset: 03-10-2022 03-13-2022 Episodic Results Test Name Value Interpretation Reference Range Facility PSA,Total - Annual Screenon 11-06-2024 PSA,TOT SCREEN 1.23 ng/mL Normal 0.02-4.00 [facility] Comment on above: Order Comment: Order Date: 11/06/24 Order Info: [id number] - PSA Comments: prostate screening for cancer Result Comment: This test was performed using the [facility] tPSA method. Measured values of a patient??sample can vary depending on the testing procedure used. PSA values determined on patient samples by different testing procedures cannot be used interchangeably. If there is a change in PSA assays while monitoring therapy, sequential testing should be performed to confirm baseline values. Performed By: #### L [phone] #### [facility] [address] [place], [address] [facility] 06-13-2024 [facility] Telephone (HVICTR) ---- SHARITA TRAN ([id number]) [address] [facility] Date Time Provider Department 06/13/24 ANDREW NG MAYA During your visit today, we recorded the following information about you: Danitza Griffith RN 06/13/2024 8:50 AM Signed [facility] Phone Encounter DATE of SERVICE: 06/13/2024 TIME of SERVICE: 8:48 AM Status: [facility] Service/Provider: Cardiac Surgery Andrew Ng M.D. Reason for call: Care Coordination Contact information: [phone] Resolution: Other : Emailed document Comments: Pt called requesting a copy of his Operative Report to be emailed to him for purposes of applying for disability. Document sent, advised to call back if any further documentation is needed. Pt verbalizes understanding. Danitza Griffith RN Date of Resolution: 06/13/2024 Time of [...] Fully Assessed Prescriptions as of 06/13/2024 - sacubitril-valsarta n (ENTRESTO) 24-26 mg tablet Take 1 tablet [...] left ventricle *03/27/2022 Encounter Status:Closed by DANITZA GRIFFITH on 06/13/24 [facility] SHARITA TRAN ([id number]) 1950 M DEF Date Time Provider Department 09/16/23 LUIS TABOR During your visit today, we recorded the following information about you: Allergies As of Date: 09/16/2023 Noted Allergy Reaction PENICILLINS 12/26/1992 2 - Rash FINASTERIDE 11/12/2010 14 - Other: See Comments Comments: dizziness LISINOPRIL 11/28/2012 3 - Cough 14 - Other: See Comments SPIRONOLACTONE 03/02/2019 14 - Other: See Comments Comments: dizziness Date Reviewed: 05/05/2022 Reviewed by: María Ott RN - Fully Assessed Prescriptions as of 09/16/2023 - sacubitril-valsarta n (ENTRESTO) 24-26 mg tablet Take 1 tablet [...] once daily. Problem List As Of Date 09/16/2023 Noted Resolved Severe mitral valve regurgitation [I34.0] [...] of left ventricle *03/27/2022 Encounter Status:Closed by RACQUEL GARIBAY on 09/16/23 [facility] SHARITA TRAN ([id number]) 1950 M DEF Date Time Provider Department 09/16/23 LUIS TABOR During your visit today, we recorded the following information about you: Racquel Garibay 09/16/2023 7:01 PM Signed Admin uploaded outside lab and echo report to [employer]. Racquel Garibay September 16, 2023 6:49 PM Allergies As of Date: 09/16/2023 Noted Allergy Reaction PENICILLINS 12/26/1992 2 - Rash FINASTERIDE 11/12/2010 14 - Other: See Comments Comments: dizziness LISINOPRIL 11/28/2012 3 - Cough 14 - Other: See Comments SPIRONOLACTONE 03/02/2019 14 - Other: See Comments Comments: dizziness Date Reviewed: 05/05/2022 Reviewed by: María Ott RN - Fully Assessed Reason for Visit: Received Outside Medical Records [[id number]] Cmt: Outside Echo and lab reports Prescriptions as of 09/16/2023 - sacubitril-valsarta n (ENTRESTO) 24-26 mg tablet Take 1 tablet [...] once daily. Problem List As Of Date 09/16/2023 Noted Resolved Severe mitral valve regurgitation [I34.0] [...] of left ventricle *03/27/2022 Encounter Status:Closed by RACQUEL GARIBAY on 09/16/23 Normal [facility] Absolute lymphocyte countOrd ered By: Dr. Ray on 04-08-2022 Lymphocytes Auto (Unsp spec) [#/Vol] 0.92 10*3/uL 0.83-4.51 [facility] Basophil percentageOrdered B y: Dr. Ray on 04-08-2022 Basophils/100 WBC (Bld) 0.6 % 0-1 [facility] Chloride [Moles/Vol] 103 mmol/L 98-107 [facility] Cholesterol [Mass/Vol] 118 mg/dL <200 [facility] [place] Comment on above: <200 mg/dL Desirable 200-240 mg/dL Borderline >240 mg/dL High Risk Eosinophils/100 WBC (Bld) 2.6 % 0-5 [facility] Glucose [Mass/Vol] 92 mg/dL 74-106 [facility] Neutrophils (Bld) [#/Vol] 4.9 10*3/uL 2.0-7.7 [facility] Neutrophils/100 WBC (Bld) 70.8 % 47-70 [facility] Potassium [Moles/Vol] 4.0 mmol/L 3.5-5.1 [facility] Sodium [Moles/Vol] 137 mmol/L 136-145 [facility] Triglyceride [Mass/Vol] 166 mg/dL <199 [facility] Comment on above: The drugs N-Acetylcy steine and Metamizole may falsely depress this assay.Serum Triglycerides Reference Interval Normal <150 mg/dL Borderline high 150 - 199 mg/dL High 200 - 499 mg/dL Very High > or = 500 mg/dL WBC (Bld) [#/Vol] 6.9 10*3/uL 4.4-11.0 [facility] Blood erythrocytes count (nu mber/volume)Ordered By: Dr. Ray on 04-08-2022 RBC (Bld) [#/Vol] 3.40 10*6/uL 4.6-6.2 [facility] Blood hemoglobin measurement (mass/volume)Ordered By: Dr. Ray on 04-08-2022 Hemoglobin (Bld) [Mass/Vol] 10.9 g/dL 13.0-16.5 [facility] Blood lymphocytes/100 leukoc ytesOrdered By: Dr. Ray on 04-08-2022 Lymphocytes/100 WBC (Bld) 13.4 % 19-41 [facility] Blood monocytes/100 leukocyt esOrdered By: Dr. Ray on 04-08-2022 Monocytes/100 WBC (Bld) 12.2 % 0-10 [facility] Blood platelet mean volumeOr dered By: Dr. Ray on 04-08-2022 Platelet mean volume (Bld) [Entitic vol] 10.6 fL 6.2-12.0 [facility] Determination of erythrocyte mean corpuscular volume (MCV)Ordered By: Dr. Ray on 04-08-2022 MCV (RBC) [Entitic vol] 102.6 fL 80-94 [facility] Hematocrit Auto (Bld) [Volum e fraction]Ordered By: Dr. Ray on 04-08-2022 Hematocrit (Bld) [Volume fraction] 34.9 % 40-54 [facility] - Chemistry and C hemistry - challengeOrdered By: Dr. Ray on 04-08-2022 ALT [Catalytic activity/Vol] 21 U/L 16-61 [facility] CO2 [Moles/Vol] 27.0 mmol/L 21.0-32.0 [facility] Urea nitrogen/Creatinine [Mass ratio] 26.2 mg/mg 10-20 [facility] - Hematology and Cell countsOrdered By: Dr. Ray on 04-08-2022 Erythrocyte distribution width (RBC) [Entitic vol] 61.1 fL 35.1-43.9 [facility] Erythrocyte distribution width (RBC) [Ratio] 15.9 % 11.6-14.6 [facility] Immature granulocytes/100 WBC (Bld) 0.400 % 0.0-0.9 [facility] Comment on above: IG% - Immature Granu locytes (promyelocytes, myelocytes and metamyelocytes) > 1% indicates that a LEFT SHIFT is Present. MCH (RBC) [Entitic mass] 32.1 pg 27.0-32.0 [facility] Nucleated RBC/100 WBC (Bld) [Ratio] 0 % 0-5 [facility] MCHC Auto (RBC) [Mass/Vol]Or dered By: Dr. Ray on 04-08-2022 MCHC (RBC) [Mass/Vol] 31.2 g/dL 32-36 [facility] No Panel InformationOrdered By: Dr. Ray on 04-08-2022 Estimated GFR (MDRD) Amer 116 mL/min >60 [facility] Comment on above: GFR Calc Estimated GFR (MDRD) Non-Af Amer 95 mL/min >60 [facility] Comment on above: Non- GFR Calc Prostate Specific Antigen Screen 1.67 ng/mL 0.00-4.00 [facility] Comment on above: This test was perfor med using the TPSA assay method for the[employer] chemistry system. Values obtained with differentassay methods cannot be used interchangably.When changing PSA assays in the course of monitoring apatient, additional sequential testing should be carriedout to confirm baseline values. Thyroid Stimulating Hormone (TSH) 2.22 uIU/mL 0.358-3.74 [facility] Platelets bldOrdered By: Dr. Ray on 04-08-2022 Platelets (Bld) [#/Vol] 212 10*3/uL 150-450 [facility] Serum or plasma calcium jose urement (mass/volume)Ordered By: Dr. Ray on 04-08-2022 Calcium [Mass/Vol] 9.0 mg/dL 8.5-10.1 [facility] Serum or plasma cholesterol in HDL measurement (mass/volume)Ordered By: Dr. Ray on 04-08-2022 Cholesterol in HDL [Mass/Vol] 49 mg/dL >40 [facility] Comment on above: The drugs N-Acetylcy steine and Metamizole may falsely depress this assay. Reference Range HDL <40 mg/dL Low HDL Cholesterol HDL >or= 60 mg/dL High HDL Cholesterol Serum or plasma cholesterol in VLDL measurement (mass/volume)Ordered By: Dr. Ray on 04-08-2022 Cholesterol in VLDL [Mass/Vol] 33 mg/dL 5-40 [facility] Serum or plasma creatinine m easurement (mass/volume)Ordered By: Dr. Ray on 04-08-2022 Creatinine [Mass/Vol] 0.84 mg/dL 0.70-1.30 [facility] Comment on above: The validity of the calculated GFR & GFRAA in patients over 70 years has not been determined. Clinical correlation is essential. Serum or plasma low density lipoprotein (LDL) cholesterol measurement (mass/volume)Ordered By: Dr. Ray on 04-08-2022 Cholesterol in LDL [Mass/Vol] 36 mg/dL 0-130 [facility] Serum or plasma urea nitroge n measurement (mass/volume)Ordered By: Dr. Ray on 04-08-2022 Urea nitrogen [Mass/Vol] 22 mg/dL 7-18 [facility] Thin prep Papanicolaou smear with manual screeningOrdered By: Dr. Ray on 04-08-2022 Thin prep Papanicolaou smear with manual screening 27 U/L 15-37 [facility] Thin prep Papanicolaou smear with manual screening 7 5-[address] [facility] [address] THORAX W/O CONTRASTon CT THORAX W/O CONTRAST ORIGINAL EXAMINATION: CT OF THE CHEST WITHOUT CONTRAST 03/24/2022 11:57 am TECHNIQUE: CT of the chest was performed without the administration of intravenous contrast. Multiplanar reformatted images are provided for review. Automated exposure control, iterative reconstruction, and/or weight based adjustment of the mA/kV was utilized to reduce the radiation dose to as low as reasonably achievable. COMPARISON: Chest radiograph 03/18/2022 HISTORY: ORDERING SYSTEM PROVIDED HISTORY: Reason for Exam: Pleural effusion, Pneumonia additional provided history of open-heart surgery 1 week prior. FINDINGS: Mediastinum: Noncontrast technique limits evaluation the mediastinum and vasculature. Small foci of free air in the anterior mediastinum as well as the anterior chest wall are compatible with recent surgery. The heart size is enlarged, with a trace pericardial effusion. Pericardial calcifications are noted inferiorly. Aortic valve replacement and severe atherosclerotic calcifications are present as well as post CABG changes. Thoracic aorta is nonaneurysmal. Main pulmonary caliber is dilated at 4.0 cm. Large fluid density collection adjacent to the aortic arch likely represents either postsurgical fluid or a large pericardial recess. Lungs/pleura: Small left pleural effusion is present with associated minimal opacities suggesting atelectasis. No pneumothorax. Central airways are patent. The no focal alveolar opacity. Upper Abdomen: Visualized portions are noncontributory. Soft Tissues/Bones: Post CABG changes. Degenerative changes without acute or aggressive osseous abnormality. IMPRESSION: Air present in the anterior mediastinum and the anterior chest wall compatible with recent open heart surgery. Trace pericardial effusion. Calcification along the inferior pericardium which can be seen the setting of early calcific pericarditis. Clinical correlation is recommended. Trace left pleural effusion and associated minimal atelectasis. Fluid collection in the anterior superior mediastinum, likely postsurgical versus prominent pericardial recess. Dilated main pulmonary artery caliber, which can be seen in the setting of pulmonary arterial hypertension. Interpreted by: Quirino Vigil Preliminary Report By: Quirnio Vigil Electronically signed By Quirino Vigil Dictated Date: 03/27/2022 9:20:54 AM Prelim Date: 03/27/2022 10:47:34 AM Sign Date: 03/27/2022 10:47:34 AM Ordering Provider: NIKOLAY LOCKWOOD [facility] ([place]) XR CHEST 2V FRONTAL/LATon [facility] XR CHEST 2 VIEWSon XR CHEST 2 VIEWS ORIGINAL HISTORY: Chest pain COMPARISON: 07 February 2009 FINDINGS: There are sternotomy wires and there are valve prostheses. There are mild streaky and hazy airspace opacities in the left base. The cardiac silhouette is enlarged. The pulmonary vasculature is unremarkable in appearance. There is a remote right-sided rib fracture. IMPRESSION: Interval sternotomy and valve placement with revision of sternotomy wires. Mild left atelectasis and or consolidation. Interpreted by: Amol Rivas MD Preliminary Report By: Amol Rivas MD Electronically signed By Amol Rivas MD Dictated Date: 03/18/2022 12:48:26 PM Prelim Date: 03/18/2022 12:49:53 PM Sign Date: 03/18/2022 12:49:53 PM Ordering Provider: NIKOLAY LOCKWOOD [facility] ([place]) LUNG DIFFUSION CAPACITY (ADA O)on 03-04-2022 [facility] Laboratory - Microbiology an d Antimicrobial susceptibilityon 03-04-2022 S. aureus and MRSA panel KRISTI+probe (Nose) Negative Negative [facility] SPIROMETRY BASELINE ONLYon 0 03-04-2022 DLCO (ml/min/mmHg) 15.45 ml/min/mmHg [facility] DLCO/VA (ml/min/mmHg/L) 4.85 ml/min/mmHg/L [facility] DLCOcor (ml/min/mmHg) 16.29 ml/min/mmHg [facility] CHW31-76% PRE (L/S) 0.91 L/S [facility] FEV1 PRE (L) 1.55 L [facility] FEV1/FVC PRE (%) 71 % [facility] FVC PRE (L) 2.18 L [facility] PEF PRE (L/S) 6.35 L/S [facility] VA (L) 3.18 L [facility] XR CHEST 2V FRONTAL/LATon [facility] CT CHEST CARDIAC WO IVCONon 01-21-2022 [facility] LABORATORYOrdered By: Brennan Otero on 09-15-2021 INR Coag (PPP) [Relative time] 1.1 {INR} Invalid Interpretation Code AH Auto Coag SS PT Coag (PPP) [Time] 12.8 s Invalid Interpretation Code 9.0 - 14.9 seconds AH Auto Coag SS PROon 09-15-2021 INR Coag (PPP) [Relative time] 1.1 {INR} Normal [facility] ([place]) Comment on above: Result Comment: The [employer] (CHEST, 1992, 102:312S-25S) recommended therapeutic range for oral anticoagulant therapy is: LOW RISK: Prophylaxis of venous thrombosis INR: 2.0-3.0 Treatment of pulmonary embolism 2.0-3.0 Prevention of systemic embolism 2.0-3.0 HIGH RISK: Mechanical prosthetic valves 2.5-3.5 Performed By: #### P RO #### [address] [address] PT Coag (PPP) [Time] 12.8 s Normal 9.0-14.9 [facility] ([place]) Comment on above: Result Comment: Effe ctive 08/23/07, Protime results may be affected by some antibiotics (i.e. Ciprofloxacin, Azithromycin, Bactrim) which may potentiate the action of oral anticoagulants, with further increases in Protime/INR. Performed By: #### P RO #### [address] [address] .Auto Diffon 09-04-2021 Basophil, Absolute 0.0 10 3/mcL Normal 0.0-0.2 [facility] ([place]) Comment on above: Performed By: #### G FR BMP #### [address] [address] Basophils/100 WBC (Bld) 0.6 % Normal 0.0-2.5 [facility] ([place]) Comment on above: Performed By: #### G , BMP #### [address] [address] Eosinophil, Absolute 0.1 10 3/mcL Normal 0.0-0.4 [facility] ([place]) Comment on above: Performed By: #### Chad HARE, BMP #### [address] [address] Eosinophils/100 WBC (Bld) 0.7 % Normal 0.0-7.0 [facility] ([place]) Comment on above: Performed By: #### Chad HARE, BMP #### [address] [address] Lymphocyte, Absolute 1.1 10 3/mcL Normal 0.8-3.9 [facility] ([place]) Comment on above: Performed By: #### Chad HARE, BMP #### [address] [address] Lymphocytes/100 WBC (Bld) 13.4 % Normal 10.0-50.0 [facility] ([place]) Comment on above: Performed By: #### Chad HARE, BMP #### [address] [address] Monocyte, Absolute 1.1 10 3/mcL High 0.2-1.0 [facility] ([place]) Comment on above: Performed By: #### Chad HARE, BMP #### [address] [address] Monocytes/100 WBC (Bld) 13.5 % High 1.7-13.0 [facility] ([place]) Comment on above: Performed By: #### Chad HARE, BMP #### [address] [address] Neutrophils/100 WBC (Bld) 71.8 % Normal 37.0-80.0 [facility] ([place]) Comment on above: Performed By: #### Chad HARE, BMP #### [address] [address] .GFRon 09-04-2021 GFR Non- 68 ml/min/1.73sqm Normal [facility] ([place]) Comment on above: Result Comment: GFR Population mean for , Non- Americans Ages 20-29 = 116 mL/min/1.73 sq.m. Ages 30-39 = 107 mL/min/1.73 sq.m. Ages 40-49 = 99 mL/min/1.73 sq.m. Ages 50-59 = 93 mL/min/1.73 sq.m. Ages 60-69 = 85 mL/min/1.73 sq.m. Ages 70+ = 75 mL/min/1.73 sq.m. Chronic Kidney Disease: Less than 60 mL/min/1.73 square meters End Stage Renal Disease: Less than 15 mL/min/1.73 square meters Performed By: #### Chad HARE, BMP #### [address] [address] GFR 83 ml/min/1.73sqm Normal [facility] ([place]) Comment on above: Result Comment: GFR Population mean for , Non- Americans Ages 20-29 = 116 mL/min/1.73 sq.m. Ages 30-39 = 107 mL/min/1.73 sq.m. Ages 40-49 = 99 mL/min/1.73 sq.m. Ages 50-59 = 93 mL/min/1.73 sq.m. Ages 60-69 = 85 mL/min/1.73 sq.m. Ages 70+ = 75 mL/min/1.73 sq.m. Chronic Kidney Disease: Less than 60 mL/min/1.73 square meters End Stage Renal Disease: Less than 15 mL/min/1.73 square meters Performed By: #### Chad HARE, BMP #### [address] [address] .MDWon 09-04-2021 Monocyte Distribution Width Not performed Normal 0.00-20.00 [facility] ([place]) Comment on above: Result Comment: MDW testing performed only on adult ER patients between the ages of 18-89 years. Performed By: #### Chad HARE, BMP #### [place] [address] [address] .NEUABSon 09-04-2021 Neutrophil, Absolute 5.7 10 3/mcL Normal 2.9-6.2 [facility] ([place]) Comment on above: Performed By: #### Chad , BMP #### [address] [address] BMPon 09-04-2021 BUN/Creatinine Ratio 29 ratio High 7-27 [facility] ([place]) Comment on above: Performed By: #### G , BMP #### [address] [address] Calcium [Mass/Vol] 9.0 mg/dL Normal 8.4-10.2 [facility] ([place]) Comment on above: Performed By: #### Chad HARE, BMP #### [address] [address] Chloride [Moles/Vol] 94 mmol/L Low 98-107 [facility] ([place]) Comment on above: Performed By: #### Chad HARE, BMP #### [address] [address] CO2 [Moles/Vol] 31 mmol/L Normal 23-31 [facility] ([place]) Comment on above: Performed By: #### Chad HARE, BMP #### [address] [address] Creatinine [Mass/Vol] 1.07 mg/dL Normal 0.70-1.30 [facility] ([place]) Comment on above: Performed By: #### Chad HARE, BMP #### [address] [address] Electrolyte Balance 11.0 mEq/L Normal 4.0-15.0 [facility] ([place]) Comment on above: Performed By: #### Chad HARE, BMP #### [address] [address] Glucose [Mass/Vol] 109 mg/dL Normal 83-110 [facility] ([place]) Comment on above: Performed By: #### Chad HARE, BMP #### [address] [address] Potassium [Moles/Vol] 3.5 mmol/L Normal 3.5-5.1 [facility] ([place]) Comment on above: Performed By: #### Chad HARE, BMP #### [address] [address] Sodium [Moles/Vol] 136 mmol/L Normal 136-145 [facility] ([place]) Comment on above: Performed By: #### G FR, BMP #### [address] [address] Urea nitrogen [Mass/Vol] 31 mg/dL High 7-18 [facility] ([place]) Comment on above: Performed By: #### G , BMP #### [address] [address] CBCon 09-04-2021 Erythrocyte distribution width (RBC) [Ratio] 14.9 % High 11.5-14.5 [facility] ([place]) Comment on above: Performed By: #### G , BMP #### [address] [address] Hematocrit (Bld) [Volume fraction] 37.9 % Low 42.0-52.0 [facility] ([place]) Comment on above: Performed By: #### G , BMP #### [address] [address] Hgb 13.2 G/dL Low 14.0-18.0 [facility] ([place]) Comment on above: Performed By: #### G , BMP #### [address] [address] MCH (RBC) [Entitic mass] 34.7 pg High 27.0-31.2 [facility] ([place]) Comment on above: Performed By: #### G FR, BMP #### [address] [address] MCHC 34.8 G/dL Normal 31.8-35.4 [facility] ([place]) Comment on above: Performed By: #### G FR, BMP #### [address] [address] MCV (RBC) [Entitic vol] 99.7 fL High 80.0-94.0 [facility] ([place]) Comment on above: Performed By: #### G FR, BMP #### [place] [address] [place], [place] [address] Platelet 195 10 3/mcL Normal 130-400 [facility] ([place]) Comment on above: Performed By: #### G FR, BMP #### [place] [address] [place], [place] [address] Platelet mean volume (Bld) [Entitic vol] 8.7 fL Normal 7.4-10.4 [facility] ([place]) Comment on above: Performed By: #### G FR, BMP #### [address] [address] RBC 3.80 10 6/mcL Low 4.04-6.13 [facility] ([place]) Comment on above: Performed By: #### G , BMP #### [address] [address] WBC 7.9 10 3/mcL Normal 4.6-10.8 [facility] ([place]) Comment on above: Performed By: #### G , BMP #### [address] [address] LABORATORYOrdered By: Primo Liu on 09-04-2021 Basophil, Absolute 0.0 103/mcL Invalid Interpretation Code 0.0 - 0.2 10^3/mcL AO Workflow SS Basophils/100 WBC (Bld) 0.6 % Invalid Interpretation Code 0.0 - 2.5 % AO Workflow SS Eosinophil, Absolute 0.1 103/mcL Invalid Interpretation Code 0.0 - 0.4 10^3/mcL AO Workflow SS Eosinophils/100 WBC (Bld) 0.7 % Invalid Interpretation Code 0.0 - 7.0 % AO Workflow SS Erythrocyte distribution width (RBC) [Ratio] 14.9 % Invalid Interpretation Code 11.5 - 14.5 % AO Workflow SS Hematocrit (Bld) [Volume fraction] 37.9 % Invalid Interpretation Code 42.0 - 52.0 % AO Workflow SS Hemoglobin (Bld) [Mass/Vol] 13.2 G/dL Invalid Interpretation Code 14.0 - 18.0 G/dL AO Workflow SS Lymphocyte, Absolute 1.1 103/mcL Invalid Interpretation Code 0.8 - 3.9 10^3/mcL AO Workflow SS Lymphocytes/100 WBC (Bld) 13.4 % Invalid Interpretation Code 10.0 - 50.0 % AO Workflow SS MCH (RBC) [Entitic mass] 34.7 pg Invalid Interpretation Code 27.0 - 31.2 pg AO Workflow SS MCHC 34.8 G/dL Invalid Interpretation Code 31.8 - 35.4 G/dL AO Workflow SS MCV (RBC) [Entitic vol] 99.7 fL Invalid Interpretation Code 80.0 - 94.0 fL AO Workflow SS Monocyte, Absolute 1.1 103/mcL Invalid Interpretation Code 0.2 - 1.0 10^3/mcL AO Workflow SS Monocytes/100 WBC (Bld) 13.5 % Invalid Interpretation Code 1.7 - 13.0 % AO Workflow SS Neutrophil, Absolute 5.7 103/mcL Invalid Interpretation Code 2.9 - 6.2 10^3/mcL AO Workflow SS Neutrophils/100 WBC (Bld) 71.8 % Invalid Interpretation Code 37.0 - 80.0 % AO Workflow SS Platelet mean volume (Bld) [Entitic vol] 8.7 fL Invalid Interpretation Code 7.4 - 10.4 fL AO Workflow SS Platelets (Bld) [#/Vol] 195 103/mcL Invalid Interpretation Code 130 - 400 10^3/mcL AO Workflow SS RBC (Bld) [#/Vol] 3.80 106/mcL Invalid Interpretation Code 4.04 - 6.13 10^6/mcL AO Workflow SS WBC 7.9 103/mcL Invalid Interpretation Code 4.6 - 10.8 10^3/mcL AO Workflow SS LABORATORYOrdered By: Mitzi Elias on 09-04-2021 Calcium [Mass/Vol] 9.0 mg/dL Invalid Interpretation Code 8.4 - 10.2 mg/dL AO ADM SS Chloride [Moles/Vol] 94 mmol/L Invalid Interpretation Code 98 - 107 mmol/L AO ADM SS CO2 [Moles/Vol] 31 mmol/L Invalid Interpretation Code 23 - 31 mmol/L AO ADM SS Creatinine [Mass/Vol] 1.07 mg/dL Invalid Interpretation Code 0.70 - 1.30 mg/dL AO ADM SS Electrolyte Balance 11.0 mEq/L Invalid Interpretation Code 4.0 - 15.0 mEq/L AO ADM SS Glucose [Mass/Vol] 109 mg/dL Invalid Interpretation Code 83 - 110 mg/dL AO ADM SS Potassium [Moles/Vol] 3.5 mmol/L Invalid Interpretation Code 3.5 - 5.1 mmol/L AO ADM SS Sodium [Moles/Vol] 136 mmol/L Invalid Interpretation Code 136 - 145 mmol/L AO ADM SS Urea nitrogen [Mass/Vol] 31 mg/dL Invalid Interpretation Code 7 - 18 mg/dL AO ADM SS Urea nitrogen/Creatinine [Mass ratio] 29 ratio Invalid Interpretation Code 7 - 27 ratio AO ADM SS LABORATORYOrdered By: SYSTEM SYSTEM on 09-04-2021 GFR 83 ml/min/1.73sqm Invalid Interpretation Code AO Chemistry S GFR Non- 68 ml/min/1.73sqm Invalid Interpretation Code AO Chemistry S Monocyte distribution width Auto (Bld) [Entitic vol] Not Performed 1 *NA* (09/04/21 2:39 PM) Invalid Interpretation Code 0.00 - 20.00 AO Hematology S Comment on above: Result Comment: MDW testing performed only on adult ER patients between the ages of 18-89 years. .GFRon 05-23-2021 GFR 87 ml/min/1.73sqm Normal [facility] ([place]) Comment on above: Result Comment: GFR Population mean for , Non- Americans Ages 20-29 = 116 mL/min/1.73 sq.m. Ages 30-39 = 107 mL/min/1.73 sq.m. Ages 40-49 = 99 mL/min/1.73 sq.m. Ages 50-59 = 93 mL/min/1.73 sq.m. Ages 60-69 = 85 mL/min/1.73 sq.m. Ages 70+ = 75 mL/min/1.73 sq.m. Chronic Kidney Disease: Less than 60 mL/min/1.73 square meters End Stage Renal Disease: Less than 15 mL/min/1.73 square meters Performed By: #### G , PBNP, BMP #### [place] [address] [address] GFR Non- 71 ml/min/1.73sqm Normal [facility] ([place]) Comment on above: Result Comment: GFR Population mean for , Non- Americans Ages 20-29 = 116 mL/min/1.73 sq.m. Ages 30-39 = 107 mL/min/1.73 sq.m. Ages 40-49 = 99 mL/min/1.73 sq.m. Ages 50-59 = 93 mL/min/1.73 sq.m. Ages 60-69 = 85 mL/min/1.73 sq.m. Ages 70+ = 75 mL/min/1.73 sq.m. Chronic Kidney Disease: Less than 60 mL/min/1.73 square meters End Stage Renal Disease: Less than 15 mL/min/1.73 square meters Performed By: #### RENEE FERREIRA, BMP #### [address] [address] BMPon 05-23-2021 BUN/Creatinine Ratio 34 ratio High 7-27 [facility] ([place]) Comment on above: Performed By: #### Chad HARE PBRICARDO, BMP #### [address] [address] Calcium [Mass/Vol] 9.3 mg/dL Normal 8.4-10.2 [facility] ([place]) Comment on above: Performed By: #### RENEE FERREIRA, BMP #### [address] [address] Chloride [Moles/Vol] 94 mmol/L Low 98-107 [facility] ([place]) Comment on above: Performed By: #### Chad HARE PBNP, BMP #### [address] [address] CO2 [Moles/Vol] 34 mmol/L High 23-31 [facility] ([place]) Comment on above: Performed By: #### Chad HARE PBNP, BMP #### [address] [address] Creatinine [Mass/Vol] 1.03 mg/dL Normal 0.70-1.30 [facility] ([place]) Comment on above: Performed By: #### Chad HARE, PBNP, BMP #### [address] [address] Electrolyte Balance 9.0 mEq/L Normal 4.0-15.0 [facility] ([place]) Comment on above: Performed By: #### G , RENEE, BMP #### [address] [place], [place] [address] Glucose [Mass/Vol] 100 mg/dL Normal 83-110 [facility] ([place]) Comment on above: Performed By: #### G RENEE HARE, BMP #### [address] [place], [place] [address] Potassium [Moles/Vol] 3.4 mmol/L Low 3.5-5.1 [facility] ([place]) Comment on above: Performed By: #### G , RENEE, BMP #### [address] [address] Sodium [Moles/Vol] 137 mmol/L Normal 136-145 [facility] ([place]) Comment on above: Performed By: #### G , RENEE, BMP #### [address] [address] Urea nitrogen [Mass/Vol] 35 mg/dL High 7-18 [facility] ([place]) Comment on above: Performed By: #### G RENEE HARE, BMP #### [address] [address] LABORATORYOrdered By: Primo Vu on 05-23-2021 Calcium [Mass/Vol] 9.3 mg/dL Invalid Interpretation Code 8.4 - 10.2 mg/dL AO ADM SS Chloride [Moles/Vol] 94 mmol/L Invalid Interpretation Code 98 - 107 mmol/L AO ADM SS CO2 [Moles/Vol] 34 mmol/L Invalid Interpretation Code 23 - 31 mmol/L AO ADM SS Creatinine [Mass/Vol] 1.03 mg/dL Invalid Interpretation Code 0.70 - 1.30 mg/dL AO ADM SS Electrolyte Balance 9.0 mEq/L Invalid Interpretation Code 4.0 - 15.0 mEq/L AO ADM SS Glucose [Mass/Vol] 100 mg/dL Invalid Interpretation Code 83 - 110 mg/dL AO ADM SS Natriuretic peptide.B prohormone N-Terminal [Mass/Vol] 1812 pg/mL Invalid Interpretation Code 0 - 125 pg/mL AO ADM SS Potassium [Moles/Vol] 3.4 mmol/L Invalid Interpretation Code 3.5 - 5.1 mmol/L AO ADM SS Sodium [Moles/Vol] 137 mmol/L Invalid Interpretation Code 136 - 145 mmol/L AO ADM SS Urea nitrogen [Mass/Vol] 35 mg/dL Invalid Interpretation Code 7 - 18 mg/dL AO ADM SS Urea nitrogen/Creatinine [Mass ratio] 34 ratio Invalid Interpretation Code 7 - 27 ratio AO ADM SS LABORATORYOrdered By: SYSTEM SYSTEM on 05-23-2021 GFR 87 ml/min/1.73sqm Invalid Interpretation Code AO Chemistry S GFR Non- 71 ml/min/1.73sqm Invalid Interpretation Code AO Chemistry S PBNPon 05-23-2021 Natriuretic peptide B (Bld) [Mass/Vol] 1812 pg/mL High 0-125 [facility] ([place]) Comment on above: Result Comment: NT-p roBNP results of less than 300 pg/mL effectively rules out acute congestive heart failure with 99% negative predictive value. Performed By: #### G , BMP #### Mayuri [address] [address] .GFRon 04-30-2021 GFR 75 ml/min/1.73sqm Normal [facility] ([place]) Comment on above: Result Comment: GFR Population mean for , Non- Americans Ages 20-29 = 116 mL/min/1.73 sq.m. Ages 30-39 = 107 mL/min/1.73 sq.m. Ages 40-49 = 99 mL/min/1.73 sq.m. Ages 50-59 = 93 mL/min/1.73 sq.m. Ages 60-69 = 85 mL/min/1.73 sq.m. Ages 70+ = 75 mL/min/1.73 sq.m. Chronic Kidney Disease: Less than 60 mL/min/1.73 square meters End Stage Renal Disease: Less than 15 mL/min/1.73 square meters Performed By: #### G , BMP #### [address] [address] GFR Non- 62 ml/min/1.73sqm Normal [facility] ([place]) Comment on above: Result Comment: GFR Population mean for , Non- Americans Ages 20-29 = 116 mL/min/1.73 sq.m. Ages 30-39 = 107 mL/min/1.73 sq.m. Ages 40-49 = 99 mL/min/1.73 sq.m. Ages 50-59 = 93 mL/min/1.73 sq.m. Ages 60-69 = 85 mL/min/1.73 sq.m. Ages 70+ = 75 mL/min/1.73 sq.m. Chronic Kidney Disease: Less than 60 mL/min/1.73 square meters End Stage Renal Disease: Less than 15 mL/min/1.73 square meters Performed By: #### Chad HARE, BMP #### [address] [address] BMPon 04-30-2021 BUN/Creatinine Ratio 30 ratio High 7-27 [facility] ([place]) Comment on above: Performed By: #### Chad HARE, BMP #### [address] [address] Calcium [Mass/Vol] 9.2 mg/dL Normal 8.4-10.2 [facility] ([place]) Comment on above: Performed By: #### Chad HARE, BMP #### [address] [address] Chloride [Moles/Vol] 102 mmol/L Normal 98-107 [facility] ([place]) Comment on above: Performed By: #### Chad HARE, BMP #### [address] [address] CO2 [Moles/Vol] 28 mmol/L Normal 23-31 [facility] ([place]) Comment on above: Performed By: #### G , BMP #### [address] [address] Creatinine [Mass/Vol] 1.17 mg/dL Normal 0.70-1.30 [facility] ([place]) Comment on above: Performed By: #### Chad HARE, BMP #### [address] [address] Electrolyte Balance 11.0 mEq/L Normal 4.0-15.0 [facility] ([place]) Comment on above: Performed By: #### G , BMP #### [address] [place], [place] [address] Glucose [Mass/Vol] 101 mg/dL Normal 83-110 [facility] ([place]) Comment on above: Performed By: #### G , BMP #### [address] [place], [place] [address] Potassium [Moles/Vol] 4.1 mmol/L Normal 3.5-5.1 [facility] ([place]) Comment on above: Performed By: #### G , BMP #### [address] [place], [place] [address] Sodium [Moles/Vol] 141 mmol/L Normal 136-145 [facility] ([place]) Comment on above: Performed By: #### G , BMP #### [address] [place], [place] [address] Urea nitrogen [Mass/Vol] 35 mg/dL High 7-18 [facility] ([place]) Comment on above: Performed By: #### G , BMP #### [address] [address] LABORATORYOrdered By: Kaycee Almaguer on 04-30-2021 Calcium [Mass/Vol] 9.2 mg/dL Invalid Interpretation Code 8.4 - 10.2 mg/dL AO ADM SS Chloride [Moles/Vol] 102 mmol/L Invalid Interpretation Code 98 - 107 mmol/L AO ADM SS CO2 [Moles/Vol] 28 mmol/L Invalid Interpretation Code 23 - 31 mmol/L AO ADM SS Creatinine [Mass/Vol] 1.17 mg/dL Invalid Interpretation Code 0.70 - 1.30 mg/dL AO ADM SS Electrolyte Balance 11.0 mEq/L Invalid Interpretation Code 4.0 - 15.0 mEq/L AO ADM SS Glucose [Mass/Vol] 101 mg/dL Invalid Interpretation Code 83 - 110 mg/dL AO ADM SS Natriuretic peptide.B prohormone N-Terminal [Mass/Vol] 4974 pg/mL Invalid Interpretation Code 0 - 125 pg/mL AO ADM SS Potassium [Moles/Vol] 4.1 mmol/L Invalid Interpretation Code 3.5 - 5.1 mmol/L AO ADM SS Sodium [Moles/Vol] 141 mmol/L Invalid Interpretation Code 136 - 145 mmol/L AO ADM SS Urea nitrogen [Mass/Vol] 35 mg/dL Invalid Interpretation Code 7 - 18 mg/dL AO ADM SS Urea nitrogen/Creatinine [Mass ratio] 30 ratio Invalid Interpretation Code 7 - 27 ratio AO ADM SS LABORATORYOrdered By: SYSTEM SYSTEM on 04-30-2021 GFR 75 ml/min/1.73sqm Invalid Interpretation Code AO Chemistry S GFR Non- 62 ml/min/1.73sqm Invalid Interpretation Code AO Chemistry S PBNPon 04-30-2021 Natriuretic peptide B (Bld) [Mass/Vol] 4974 pg/mL High 0-125 [facility] ([place]) Comment on above: Result Comment: NT-p roBNP results of less than 300 pg/mL effectively rules out acute congestive heart failure with 99% negative predictive value. Performed By: #### G , BMP #### Mayuri [address] [address] .GFRon 04-02-2021 GFR 80 ml/min/1.73sqm Normal [facility] ([place]) Comment on above: Result Comment: GFR Population mean for , Non- Americans Ages 20-29 = 116 mL/min/1.73 sq.m. Ages 30-39 = 107 mL/min/1.73 sq.m. Ages 40-49 = 99 mL/min/1.73 sq.m. Ages 50-59 = 93 mL/min/1.73 sq.m. Ages 60-69 = 85 mL/min/1.73 sq.m. Ages 70+ = 75 mL/min/1.73 sq.m. Chronic Kidney Disease: Less than 60 mL/min/1.73 square meters End Stage Renal Disease: Less than 15 mL/min/1.73 square meters Performed By: #### G , BMP #### Mayuri [address] [address] GFR Non- 66 ml/min/1.73sqm Normal [facility] ([place]) Comment on above: Result Comment: GFR Population mean for , Non- Americans Ages 20-29 = 116 mL/min/1.73 sq.m. Ages 30-39 = 107 mL/min/1.73 sq.m. Ages 40-49 = 99 mL/min/1.73 sq.m. Ages 50-59 = 93 mL/min/1.73 sq.m. Ages 60-69 = 85 mL/min/1.73 sq.m. Ages 70+ = 75 mL/min/1.73 sq.m. Chronic Kidney Disease: Less than 60 mL/min/1.73 square meters End Stage Renal Disease: Less than 15 mL/min/1.73 square meters Performed By: #### G , BMP #### [address] [address] BMPon 04-02-2021 BUN/Creatinine Ratio 25 ratio Normal 7-27 [facility] ([place]) Comment on above: Performed By: #### Chad HARE, BMP #### [address] [address] Calcium [Mass/Vol] 8.7 mg/dL Normal 8.4-10.2 [facility] ([place]) Comment on above: Performed By: #### Chad HARE, BMP #### [address] [address] Chloride [Moles/Vol] 105 mmol/L Normal 98-107 [facility] ([place]) Comment on above: Performed By: #### Chad HARE, BMP #### [address] [address] CO2 [Moles/Vol] 31 mmol/L Normal 23-31 [facility] ([place]) Comment on above: Performed By: #### G , BMP #### [address] [address] Creatinine [Mass/Vol] 1.10 mg/dL Normal 0.70-1.30 [facility] ([place]) Comment on above: Performed By: #### G , BMP #### [address] [address] Electrolyte Balance 6.0 mEq/L Normal 4.0-15.0 [facility] ([place]) Comment on above: Performed By: #### G FR, BMP #### [address] [place], [place] [address] Glucose [Mass/Vol] 97 mg/dL Normal 83-110 [facility] ([place]) Comment on above: Performed By: #### G FR, BMP #### [address] [place], [place] [address] Potassium [Moles/Vol] 3.6 mmol/L Normal 3.5-5.1 [facility] ([place]) Comment on above: Performed By: #### G FR, BMP #### [address] [place], [place] [address] Sodium [Moles/Vol] 142 mmol/L Normal 136-145 [facility] ([place]) Comment on above: Performed By: #### G , BMP #### [address] [address] Urea nitrogen [Mass/Vol] 27 mg/dL High 7-18 [facility] ([place]) Comment on above: Performed By: #### G , BMP #### [address] [address] LABORATORYOrdered By: Primo Liu on 04-02-2021 Calcium [Mass/Vol] 8.7 mg/dL Invalid Interpretation Code 8.4 - 10.2 mg/dL AO ADM SS Chloride [Moles/Vol] 105 mmol/L Invalid Interpretation Code 98 - 107 mmol/L AO ADM SS CO2 [Moles/Vol] 31 mmol/L Invalid Interpretation Code 23 - 31 mmol/L AO ADM SS Creatinine [Mass/Vol] 1.10 mg/dL Invalid Interpretation Code 0.70 - 1.30 mg/dL AO ADM SS Electrolyte Balance 6.0 mEq/L Invalid Interpretation Code 4.0 - 15.0 mEq/L AO ADM SS Glucose [Mass/Vol] 97 mg/dL Invalid Interpretation Code 83 - 110 mg/dL AO ADM SS Natriuretic peptide.B prohormone N-Terminal [Mass/Vol] 3563 pg/mL Invalid Interpretation Code 0 - 125 pg/mL AO ADM SS Potassium [Moles/Vol] 3.6 mmol/L Invalid Interpretation Code 3.5 - 5.1 mmol/L AO ADM SS Sodium [Moles/Vol] 142 mmol/L Invalid Interpretation Code 136 - 145 mmol/L AO ADM SS Urea nitrogen [Mass/Vol] 27 mg/dL Invalid Interpretation Code 7 - 18 mg/dL AO ADM SS Urea nitrogen/Creatinine [Mass ratio] 25 ratio Invalid Interpretation Code 7 - 27 ratio AO ADM SS LABORATORYOrdered By: SYSTEM SYSTEM on 04-02-2021 GFR 80 ml/min/1.73sqm Invalid Interpretation Code AO Chemistry S GFR Non- 66 ml/min/1.73sqm Invalid Interpretation Code AO Chemistry S PBNPon 04-02-2021 Natriuretic peptide B (Bld) [Mass/Vol] 3563 pg/mL High 0-125 [facility] ([place]) Comment on above: Result Comment: NT-p roBNP results of less than 300 pg/mL effectively rules out acute congestive heart failure with 99% negative predictive value. Performed By: #### G , [facility] #### [address] [address] Vital Signs Date Time Vital Sign Value Performing Clinician Leno guillen 09-09-2022 08:43-0400 Body height 162.[address] [facility] 09-09-2022 08:43-0400 Body weight 76.[address] [facility] 06-12-2022 09:24-0400 Body height 162.[address] [facility] 06-12-2022 09:24-0400 Body weight 71.[address] [facility] 06-12-2022 08:49-0400 Body mass index (BMI) [Ratio] 25.4 kg/m2 [facility] 06-12-2022 08:49-0400 Body temperature 98.7 [degF] [facility] 06-12-2022 08:49-0400 Diastolic blood pressure 66 mm[Hg] [facility] 06-12-2022 08:49-0400 Heart rate 63 /min [facility] 06-12-2022 08:49-0400 Respiratory rate 14 /min [facility] 06-12-2022 08:49-0400 SaO2% (BldA) [Mass fraction] 96 % [facility] 06-12-2022 08:49-0400 Systolic blood pressure 124 mm[Hg] [facility] 05-05-2022 09:29-0400 Body weight 71.53 kg Luis Tabor MD Work Phone: [facility] 05-05-2022 09:29-0400 Diastolic blood pressure 71 mm[Hg] Luis Tabor MD Work Phone: [facility] 05-05-2022 09:29-0400 Heart rate 66 /min Luis Tabor MD Work Phone: [facility] 05-05-2022 09:29-0400 SaO2% (BldA) [Mass fraction] 95 % Luis Tabor MD Work Phone: [facility] 05-05-2022 09:29-0400 Systolic blood pressure 140 mm[Hg] Luis Tabor MD Work Phone: [facility] 03-26-2022 10:41-0500 Body height 167.6 cm Charlotte Emch PA-C Work Phone: [facility] 03-26-2022 10:41-0500 Body temperature 98.01 [degF] Charlotte Emch PA-C Work Phone: [facility] 03-26-2022 10:41-0500 Body weight 69.58 kg Charlotte Emch PA-C Work Phone: [facility] 03-26-2022 10:41-0500 Diastolic blood pressure 70 mm[Hg] Charlotte Emch PA-C Work Phone: [facility] 03-26-2022 10:41-0500 Heart rate 67 /min Charlotte Emch PA-C Work Phone: [facility] 03-26-2022 10:41-0500 SaO2% (BldA) [Mass fraction] 97 % Charlotte Emch PA-C Work Phone: [facility] 03-26-2022 10:41-0500 Systolic blood pressure 120 mm[Hg] Charlotte Emch PA-C Work Phone: [facility] 03-04-2022 12:00-0500 Body height 167.6 cm [facility] Work Phone: [facility] 03-04-2022 12:00-0500 Body temperature 98.01 [degF] [facility] Work Phone: [facility] 03-04-2022 12:00-0500 Body weight 70.31 kg [facility] Work Phone: [facility] 03-04-2022 12:00-0500 Diastolic blood pressure 59 mm[Hg] [facility] Work Phone: [facility] 03-04-2022 12:00-0500 Heart rate 80 /min [facility] Work Phone: [facility] 03-04-2022 12:00-0500 Respiratory rate 12 /min [facility] Work Phone: [facility] 03-04-2022 12:00-0500 SaO2% (BldA) [Mass fraction] 96 % [facility] Work Phone: [facility] 03-04-2022 12:00-0500 Systolic blood pressure 105 mm[Hg] [facility] Work Phone: [facility] 09-15-2021 18:09-0400 Diastolic blood pressure 70 mm[Hg] NIKOLAY LOCKWOOD MD [facility] 09-15-2021 18:09-0400 Heart rate 72 /min NIKOLAY LOCKWOOD MD [facility] 09-15-2021 18:09-0400 Systolic blood pressure 104 mm[Hg] NIKOLAY LOCKWOOD MD [facility] 09-15-2021 16:55-0400 Diastolic blood pressure 58 mm[Hg] NIKOLAY LOCKWOOD MD [facility] 09-15-2021 16:55-0400 Heart rate 61 /min NIKOLAY LOCKWOOD MD [address] [place] [address] 09-15-2021 16:55-0400 Mean blood pressure 72 mm[Hg] NIKOLAY LOCKWOOD MD [address] [place] [address] 09-15-2021 16:55-0400 Systolic blood pressure 101 mm[Hg] NIKOLAY LOCKWOOD MD [address] [place] [address] 09-15-2021 16:40-0400 Diastolic blood pressure 64 mm[Hg] NIKOLAY LOCKWOOD MD [address] [place] [address] 09-15-2021 16:40-0400 Heart rate 66 /min NIKOLAY LOCKWOOD MD [address] [place] [address] 09-15-2021 16:40-0400 Mean blood pressure 76 mm[Hg] NIKOLAY LOCKWOOD MD [address] [place] [address] 09-15-2021 16:40-0400 Systolic blood pressure 99 mm[Hg] NIKOLAY LOCKWOOD MD [address] [place] [address] 09-15-2021 16:26-0400 Diastolic Blood Pressure NBP 61 1 NIKOLAY LOCKWOOD MD [address] [place] [address] 09-15-2021 16:26-0400 Respiratory rate 16 /min NIKOLAY LOCKWOOD MD [address] [place] [address] 09-15-2021 16:26-0400 Systolic Blood Pressure NBP 98 1 NIKOLAY LOCKWOOD MD [address] [place] [address] 09-15-2021 16:10-0400 Diastolic Blood Pressure NBP 73 1 NIKOLAY LOCKWOOD MD [address] [place] [address] 09-15-2021 16:10-0400 Respiratory rate 16 /min NIKOLAY LOCKWOOD MD [address] [place] [address] 09-15-2021 16:10-0400 Systolic Blood Pressure NBP 113 1 NIKOLAY LOCKWOOD MD [address] [place] [address] 09-15-2021 14:08-0400 Mean blood pressure 76 mm[Hg] NIKOLAY LOCKWOOD MD [address] [place] [address] 09-15-2021 14:08-0400 Reason For Taking VItal Signs NIKOLAY LOCKWOOD MD [address] [place] [address] 09-15-2021 12:01-0400 Body height 167.64 cm NIKOLAY LOCKWOOD MD [address] [place] [address] 09-15-2021 12:01-0400 Body weight 72.3 kg NIKOLAY LOCKWOOD MD [address] [place] [address] 09-15-2021 12:01-0400 Body weight 25.73 kg/m2 NIKOLAY LOCKWOOD MD [address] [place] [address] 09-15-2021 11:48-0400 Body height 167.64 cm NIKOLAY LOCKWOOD MD [address] [place] [address] 09-15-2021 11:48-0400 Body temperature 98.06 [degF] NIKOLAY LOCKWOOD MD [address] [place] [address] 09-15-2021 11:48-0400 Body weight 72.3 kg NIKOLAY LOCKWOOD MD [address] [place] [address] 09-15-2021 11:48-0400 Diastolic Blood Pressure NBP 78 1 NIKOLAY LOCKWOOD MD [address] [place] [address] 09-15-2021 11:48-0400 Respiratory rate 16 /min NIKOLAY LOCKWOOD MD [address] [place] [address] 09-15-2021 11:48-0400 Systolic Blood Pressure NBP 109 [address] [facility] 06-04-2021 09:55-0400 Body mass index (BMI) [Ratio] 28.4 kg/m2 [facility] Work Phone: 06-04-2021 09:55-0400 Body temperature 97.3 [degF] [facility] Work Phone: 06-04-2021 09:55-0400 Diastolic blood pressure 64 mm[Hg] [facility] Work Phone: 06-04-2021 09:55-0400 Heart rate 63 /min [facility] Work Phone: 06-04-2021 09:55-0400 Systolic blood pressure 102 mm[Hg] [facility] Work Phone: 05-21-2021 11:54-0400 Respiratory rate 18 /min [facility] Work Phone: 05-09-2021 00:54-0400 Body weight 79.[address] [facility] Work Phone: 05-07-2021 09:07-0400 Body height 167.[address] [facility] Work Phone: 05-07-2021 09:07-0400 Body mass index (BMI) [Ratio] 28.4 kg/m2 [facility] Work Phone: 05-07-2021 09:07-0400 Body temperature 96.2 [degF] [facility] Work Phone: 05-07-2021 09:07-0400 Body weight 79.[address] [facility] Work Phone: 05-07-2021 09:07-0400 Diastolic blood pressure 68 mm[Hg] [facility] Work Phone: 05-07-2021 09:07-0400 Heart rate 90 /min [facility] Work Phone: 05-07-2021 09:07-0400 Respiratory rate 16 /min [facility] Work Phone: 05-07-2021 09:07-0400 Systolic blood pressure 105 mm[Hg] [facility] Work Phone: Encounters Encounter Date Encounter Type Care Provider Facility Start: 11-06-2024 End: 11-06-[address] Fred Orozco MD Work Phone: -Laboratory [facility] Start: 11-06-2024 End: 11-06-2024 Patient encounter procedure Adam Yvonneow MEDICAL STAFF ASSISTANT-C -Laboratory [facility] Start: 11-06-2024 End: 11-06-2024 ambulatory Fred Orozco Facility:[facility] Start: 06-13-2024 End: 06-13-2024 Telephone encounter Andrew Ng MD Work Phone: Cardiology Start: 09-16-2023 Telephone encounter Luis reis MD Work Phone: Cardiology Comment on above: Received Outside [facility] [facility] (Outside Echo and lab reports ) Start: 03-11-2023 ambulatory Leonor Evans RN [facility] Start: 09-09-2022 End: 10-08-2022 ambulatory [facility] Work Phone: Start: 09-09-2022 End: 10-08-2022 Discharged Recurring [facility] Work Phone: Start: 09-07-2022 End: 09-07-2022 Discharged Recurring [facility] Work Phone: Start: 08-07-2022 End: 08-07-2022 ambulatory [facility] Work Phone: Start: 08-07-2022 End: 08-07-2022 Discharged Recurring [facility] Work Phone: Start: 07-08-2022 End: 07-08-2022 ambulatory [facility] Work Phone: Start: 07-08-2022 End: 07-08-2022 Discharged Recurring [facility] Start: 06-15-2022 ambulatory Nicol Kulkarni esearch Coordinator [facility] Start: 06-12-2022 End: 06-12-2022 ambulatory [facility] Work Phone: Start: 06-12-2022 End: 06-12-2022 Patient encounter procedure [facility] Start: 05-06-2022 Telephone encounter Luis reis MD Work Phone: Cardiology Comment on above: Orders Start: 05-05-2022 Telephone encounter Luis reis MD Work Phone: Cardiology Comment on above: Medication Problem Start: 05-05-2022 End: 05-05-2022 Patient encounter procedure Luis Tabor MD Work Phone: Cardiology Comment on above: S/P MVR (mitral valv e repair) (Primary Dx); 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); Atherosclerosis of CABG w/o angina pectoris; Orthostasis Start: 04-16-2022 ambulatory Nicol Kulkarni esearch Coordinator [facility] Start: 04-08-2022 End: 04-08-2022 Patient encounter procedure [facility] Start: 04-03-2022 Telephone encounter Andrew Labm MD Work Phone: Cardiology Comment on above: Post Dc Program Call - Fyi Start: 03-26-2022 End: 03-26-2022 Patient encounter procedure Charlotte Ortega PA-C Work Phone: Cardiothoracic Comment on above: H/O mitral valve rep air (Primary Dx); S/P CABG x 1; PAF (paroxysmal atrial fibrillation) (HCC); Primary hypertension; Chronic systolic dysfunction of left ventricle Start: 03-26-2022 End: 03-26-2022 Subsequent hospital visit by physician Xr Chest Main J1 Work Phone: Radiology Comment on above: Surgery follow-up [Z 09] Start: 03-24-2022 End: 03-25-2022 ambulatory NIKOLAY LOCKWOOD MD Facility:B Start: 03-24-2022 End: 03-24-2022 Patient encounter procedure NIKOLAY LOCKWOOD MD [facility] Start: 03-18-2022 End: 03-19-2022 ambulatory NIKOLAY LOCKWOOD MD Facility:B Start: 03-18-2022 End: 03-18-2022 Patient encounter procedure NIKOLAY LOCKWOOD MD [facility] Start: 03-16-2022 Telephone encounter Aldair RODRIGUEZ Comment on above: Follow Up Phone Call (RC f/u all clear/) Start: 03-04-2022 End: 03-04-2022 Admission to same day surgery center Anesthesia Clearance Work Phone: Cardiothoracic Start: 03-04-2022 End: 03-04-2022 Preprocedural examination done [facility] Work Phone: Cardiooracic Start: 03-04-2022 End: 03-04-2022 ambulatory Pulm J-1 [facility] Comment on above: Spirometry Start: 03-04-2022 End: 03-04-2022 Patient encounter procedure Pulm Fct Lab J-1 [facility] Comment on above: Encounter for educat ion (Primary Dx); Pre-op exam Encounter for preope rative anesthesiology assessment for cardiac surgery (Primary Dx) Nonrheumatic mitral valve regurgitation (Primary Dx); S/P AVR (aortic valve replacement); Pre-operative cardiovascular examination; Shortness of breath ; Paroxysmal atrial fibrillation (HCC); HFrEF (heart failure with reduced ejection fraction) (HCC); Coronary artery disease involving saxman coronary artery of saxman heart without angina pectoris; Discharge planning issues; Preop testing Severe mitral valve regurgitation (Primary Dx); Coronary artery disease involving saxman coronary artery of saxman heart without angina pectoris Start: 03-04-2022 End: 03-04-2022 Patient encounter status [facility] Work Phone: [facility] Work Phone: Start: 03-04-2022 End: 03-04-2022 Subsequent hospital visit by physician Xr Chest Main J1 Work Phone: Radiology Comment on above: Pre-operative cardio vascular examination [Z01.810] Start: 03-03-2022 ambulatory Nicol Maia Kulkarni esearch Coordinator [facility] Start: 03-02-2022 ambulatory Nicol Maia Kulkarni esearch Coordinator [facility] Start: 03-02-2022 Telephone encounter Debbie rodney RN Work Phone: Case Management Comment on above: Plug Sorter - O ther (Care Continuum Advisor Assessment ) Start: 02-06-2022 Patient encounter status Andrew Ng MD Work Phone: Cardiothoracic Start: 02-06-2022 Telephone encounter Andrew Lamb MD Work Phone: Cardiothoracic Comment on above: Cardiac Preop Checkl ist Start: 01-21-2022 End: 01-21-2022 Patient encounter procedure Andrew Ng MD Work Phone: Cardiothoracic Comment on above: Mitral valve disorde r (Primary Dx) Start: 01-21-2022 End: 01-21-[address] (I-Stat) Work Phone: Radiology Start: 01-21-2022 End: 01-21-2022 Subsequent hospital visit by physician Ct Main F30 (I-Stat) Work Phone: Radiology Comment on above: Encounter for preope rative vascular examination [Z01.810] Start: 01-13-2022 Patient encounter status Andrew Ng MD Work Phone: Cardiothoracic Start: 01-13-2022 Telephone encounter Andrew Lamb MD Work Phone: Cardiothoracic Comment on above: Schedule Evaluation Start: 12-10-2021 Telephone encounter Sales Marketing Coordinator Bmt Work Phone: Cardiothoracic Comment on above: Insurance Inquiry Start: 12-05-2021 Telephone encounter Leonor Salguero Cardiology Comment on above: New TMVR Referral Start: 09-24-2021 End: 09-25-2021 ambulatory SYL THURMAN DO Facility:A Start: 09-15-2021 End: 09-16-2021 ambulatory JANEY MALAGON ORTHOTIC AIDE-PHOTOENGRAVING PHOTOGRAPHER Facility:A Start: 09-15-2021 End: 09-15-2021 SAME DAY STAY NIKOLAY LOCKWOOD MD [facility] Start: 09-15-2021 End: 09-15-2021 Patient encounter procedure JANEY MALAGON ORTHOTIC AIDE-PHOTOENGRAVING PHOTOGRAPHER [facility] Start: 09-04-2021 End: 09-05-2021 ambulatory SYL THURMAN DO Facility:B Start: 09-04-2021 End: 09-04-2021 Patient encounter procedure NIKOLAY LOCKWOOD MD [facility] Start: 06-04-2021 Non-patient / Non-visit [facility] Start: 06-04-2021 End: 06-04-2021 Discharged Recurring [facility] Start: 05-23-2021 End: 05-24-2021 ambulatory NIKOLAY LOCKWOOD MD Facility:B Start: 05-23-2021 End: 05-23-2021 Patient encounter procedure NIKOLAY LOCKWOOD MD [facility] Start: 05-21-2021 Non-patient / Non-visit [facility] Start: 05-14-2021 Non-patient / Non-visit [facility] Start: 05-07-2021 Non-patient / Non-visit [facility] Start: 05-07-2021 End: 05-08-2021 Discharged Recurring [facility] Start: 04-30-2021 End: 05-01-2021 ambulatory NIKOLAY LOCKWOOD MD Facility:B Start: 04-30-2021 End: 04-30-2021 Patient encounter procedure NIKOLAY LOCKWOOD MD [facility] Start: 04-02-2021 End: 04-03-2021 ambulatory NIKOLAY LOCKWOOD MD Facility:B Start: 04-02-2021 End: 04-02-2021 Patient encounter procedure NIKOLAY LOCKWOOD MD [facility] Procedures Date Procedure Procedure Detail Performing Clinician Start: 11-06-2024 Prostate specific an tigen measurement Dr. Fred Orozco MD Work Phone: Comment on above: This test was perfor med using the [employer] tPSA method. Measured values of a patient sample can vary depending on the testing procedure used. PSA values determined on patient samples by different testing procedures cannot be used interchangeably. If there is a change in PSA assays while monitoring therapy, sequential testing should be performed to confirm baseline values. Start: 05-05-2022 Lipid 1996 panel - S shira or Plasma Leonor Evans RN Start: 03-26-2022 Radiologic exam ches t 2 views Andrew Ng MD Work Phone: Start: 03-05-2022 Coronary artery bypa ss graft x 1 NIKOLAY LOCKWOOD MD Comment on above: [facility] Start: 03-05-2022 Repair of mitral valve NIKOLAY LOCKWOOD MD Comment on above: [facility] Start: 03-04-2022 Iadna s aureus ampli fied probe tq Andrew Ng MD Work Phone: Start: 03-04-2022 Co diffusing capacity K kimmy Ng MD Work Phone: Start: 03-04-2022 Radiologic exam ches t 2 views Andrew Ng MD Work Phone: Start: 01-21-2022 Ct thorax w/o contra st material Andrew Ng MD Work Phone: Start: 09-15-2021 Cardiac catheterization JANEY YOUKATETIO JAVI Comment on above: SUMMARY: 1. LAD: The proximal vessel is mildly ectatic. There is mild diffuse disease in mid and distal LAD. Mid-vessel lesion: There is a 90% stenosis. 2. 1st diagonal: The vessel is very large and unusually long. There is no evidence of disease. IMPRESSIONS: Known severe MR. Severe mid LAD disease. RECOMMENDATIONS: CTS evaluation for MVR and RENO>LAD Start: 09-15-2021 Transesophageal echocardiography NIKOLAY LOCKWOOD MD Comment on above: Summary: 1. Severe MR with eccentric posterior jet. RV 143 ml. 2/3 PV show systolic reversal. RLPV not visualized. A2 prolapse. Ruptured chordae. No obvious flail. Possible posterior leaflet restriction. Posterior leaflet 1 mm. Septal height to annulus: 48 mm. Difficult windows. Mech AV. Normal function. LV systolic function mildly reduced. 2. Left ventricle: Systolic function is mildly reduced. 3. Aortic valve: A mechanical prosthetic valve is present. There is no evidence of a vegetation. 4. Mitral valve: Posterior leaflet mobility is restricted. Prolapse, involving the middle segment of the anterior leaflet. There is severe regurgitation, with multiple jets, directed eccentrically and posteriorly. 5. Left atrium: There is no evidence of a thrombus in the atrial cavity or appendage. 6. Pulmonic valve: There is no evidence of a vegetation. 7. Tricuspid valve: There is no evidence of a vegetation. 8. Right atrium: There is no evidence of a thrombus in the atrial cavity or appendage. 9. Atrial septum: No defect or patent foramen ovale is identified. Start: 07-23-[address] LOCKWOOD MD Comment on above: EF 35-40% Start: 12-01-[address] LOCKWOOD MD Start: 09-24-[address] LOCKWOOD MD Comment on above: EF 40-45% Start: 11-26-2010 Cardiovascular stres s testing NIKOLAY LOCKWOOD MD Start: 02-08-2010 ECG: presence findin gs (finding) NIKOLAY LOCKWOOD MD Start: 10-24-2009 Hernia of abdominal cavity (disorder) NIKOLAY LOCKWOOD MD Comment on above: Umbilical hernia rep air/ Dr. Price Start: 06-28-2009 Carotid endarterectomy NIKOLAY LOCKWOOD MD Comment on above: Left Start: 05-29-2009 Carotid artery struc ture (body structure) NIKOLAY LOCKWOOD MD Comment on above: 75% Left ICA Start: 12-31-2008 Replacement of aorti c valve NIKOLAY LOCKWOOD MD Comment on above: Aortic valve replacm ent with a 25 mm ONX valve Start: 02-09-2008 Cardiac catheterization NIKOLAY LOCKWOOD MD Start: 02-09-2008 History of repair of ascending aorta NIKOLAY LOCKWOOD MD Comment on above: Reconstruction using CODUIT of 28 Gelweave Graft and 25 mm on- x valve Start: 02-09-2008 Multiple gated acqui sition scanning NIKOLAY LOCKWOOD MD Comment on above: EF 40-45% Start: 02-08-2007 Multiple gated acqui sition scanning NIKOLAY LOCKWOOD MD Comment on above: 40-45% History of coronary artery bypass grafting S/P CABG x 1 Charlotte Ortega PA-C Work Phone: Plan of Treatment Date Care Activity Detail Author Start: 05-06-2027 Lipid panel Lipid Screening [facility] Start: 05-06-2027 LIPID SCREEN LIPID SCREEN [facility] Start: 05-05-2025 DIABETES SCREEN DIABETES SCREEN [facility] Start: 05-05-2025 Diabetes Screening Diabetes Screenin g [facility] Start: 03-26-2025 DIABETES SCREEN DIABETES SCREEN [facility] Start: 03-13-2025 DIABETES SCREEN DIABETES SCREEN [facility] Start: 03-04-2025 DIABETES SCREEN DIABETES SCREEN [facility] Start: 01-21-2025 DIABETES SCREEN DIABETES SCREEN [facility] Start: 10-09-2024 Influenza vaccination Influenz a Vaccine (Season Ended) [facility] Start: 02-09-2024 Advance Directive Discussion Advance Directive Discussion [facility] Start: 10-10-2023 Covid-19 Vaccine ( season) Covid-19 Vaccine ( season) [facility] Start: 10-10-2023 Influenza vaccination Influenza Vacc ine (#1) [facility] Start: 05-06-2023 Hepatitis B surface antibody level LDL CHOLESTEROL [facility] Start: 03-26-2023 BP CONTROLLED (<130/80) BP CONTROLLE D (<130/80) [facility] Start: 03-04-2023 BP CONTROLLED (<130/80) BP CONTROLLE D (<130/80) [facility] Start: 02-08-2023 Advance Directive Discussion Advance Directive Discussion [facility] Start: 11-28-2022 Urine microalbumin profile [facility] Start: 10-09-2022 Covid-19 Vaccine ( season) Covid-19 Vaccine () [facility] Start: 10-09-2022 Influenza vaccination C [facility] Start: 05-05-2022 End: 07-05-2022 Basic metabolic 2000 panel - Serum or Plasma BASIC METABOLIC PNL Lab Routine S/P MVR (mitral valve repair) Expected: 05/05/2022, Expires: 07/05/2022 [facility] Work Phone: Comment on above: Expected: 05/05/2022 , Expires: 07/05/2022 Start: 03-04-2022 End: 05-04-2022 aPTT in Platelet poor plasma by Coagulation assay ACTIVATED PTT Lab Routine Pre-operative cardiovascular examination Paroxysmal atrial fibrillation (HCC) Atherosclerosis of coronary artery of saxman heart, unspecified vessel or lesion type, unspecified whether angina present Mitral valve disorder Expected: 03/04/2022, Expires: 05/04/2022 [facility] Work Phone: Comment on above: Expected: 03/04/2022 , Expires: 05/04/2022 Start: 03-04-2022 End: 05-04-2022 CBC W Auto Differential panel - Blood CBC + DIFF Lab Routine Pre-operative cardiovascular examination Paroxysmal atrial fibrillation (HCC) Atherosclerosis of coronary artery of saxman heart, unspecified vessel or lesion type, unspecified whether angina present Mitral valve disorder Expected: 03/04/2022 (Approximate), Expires: 05/04/2022 [facility] Work Phone: Comment on above: Expected: 03/04/2022 (Approximate), Expires: 05/04/2022 Start: 03-04-2022 End: 05-04-2022 Comprehensive metabolic 2000 panel - Serum or Plasma COMP METABOLIC PANEL Lab Routine Pre-operative cardiovascular examination Paroxysmal atrial fibrillation (HCC) Atherosclerosis of coronary artery of saxman heart, unspecified vessel or lesion type, unspecified whether angina present Mitral valve disorder Expected: 03/04/2022 (Approximate), Expires: 05/04/2022 [facility] Work Phone: Comment on above: Expected: 03/04/2022 (Approximate), Expires: 05/04/2022 Start: 03-04-2022 End: 05-04-2022 CONFIRM BLOOD TYPE CONFIRM BLOOD TYPE Blood Bank Routine Other specified symptoms and signs involving the circulatory and respiratory systems Shortness of breath Pre-operative cardiovascular examination Paroxysmal atrial fibrillation (HCC) Atherosclerosis of coronary artery of saxman heart, unspecified vessel or lesion type, unspecified whether angina present Mitral valve disorder Expected: 03/04/2022 (Approximate), Expires: 05/04/2022 [facility] Work Phone: Comment on above: Expected: 03/04/2022 (Approximate), Expires: 05/04/2022 Start: 03-04-2022 End: 05-04-2022 Lactate dehydrogenase [Enzymatic activity/volume] in Serum or Plasma LD LACTATE DEHYDRO Lab Routine Pre-operative cardiovascular examination Paroxysmal atrial fibrillation (HCC) Atherosclerosis of coronary artery of saxman heart, unspecified vessel or lesion type, unspecified whether angina present Mitral valve disorder Expected: 03/04/2022 (Approximate), Expires: 05/04/2022 [facility] Work Phone: Comment on above: Expected: 03/04/2022 (Approximate), Expires: 05/04/2022 Start: 03-04-2022 End: 05-04-2022 PT panel - Platelet poor plasma by Coagulation assay PROTHROMBIN TIME/PT Lab Routine Pre-operative cardiovascular examination Paroxysmal atrial fibrillation (HCC) Atherosclerosis of coronary artery of saxman heart, unspecified vessel or lesion type, unspecified whether angina present Mitral valve disorder Expected: 03/04/2022, Expires: 05/04/2022 [facility] Work Phone: Comment on above: Expected: 03/04/2022 , Expires: 05/04/2022 Start: 03-04-2022 End: 05-04-2022 TYPE AND SCREEN,30 DAY TYPE AND SCREEN,30 DAY Blood Bank Routine Pre-operative cardiovascular examination Paroxysmal atrial fibrillation (HCC) Atherosclerosis of coronary artery of saxman heart, unspecified vessel or lesion type, unspecified whether angina present Mitral valve disorder Expected: 03/04/2022 (Approximate), Expires: 05/04/2022 [facility] Work Phone: Comment on above: Expected: 03/04/2022 (Approximate), Expires: 05/04/2022 Start: 03-04-2022 End: 05-04-2022 URINALYSIS, DIPSTICK ONLY URINALYSIS, DIPSTICK ONLY Lab Routine Pre-operative cardiovascular examination Paroxysmal atrial fibrillation (HCC) Atherosclerosis of coronary artery of saxman heart, unspecified vessel or lesion type, unspecified whether angina present Mitral valve disorder Expected: 03/04/2022 (Approximate), Expires: 05/04/2022 [facility] Work Phone: Comment on above: Expected: 03/04/2022 (Approximate), Expires: 05/04/2022 Start: 02-08-2022 ADVANCE DIRECTIVE DISCUSSION ADVANCE DIRECTIVE DISCUSSION [facility] Start: 02-08-2022 DEPRESSION ASSESSMENT DEPRESSION ASS ESSMENT [facility] Start: 02-06-2022 End: 06-07-2022 SARS-CoV-2 (COVID-19) RNA [Presence] in Respiratory specimen by KRISTI with probe detection INTERMEDIATE RAPID COVID Microbiology Routine Other specified symptoms and signs involving the circulatory and respiratory systems Shortness of breath Pre-operative cardiovascular examination Paroxysmal atrial fibrillation (HCC) Atherosclerosis of coronary artery of saxman heart, unspecified vessel or lesion type, unspecified whether angina present Mitral valve disorder Expected: 02/06/2022, Expires: 06/07/2022 [facility] Work Phone: Comment on above: Expected: 02/06/2022 , Expires: 06/07/2022 Start: 01-13-2022 End: 03-15-2022 CBC W Auto Differential panel - Blood CBC + DIFF Lab Routine Encounter for preoperative vascular examination Pre-operative cardiovascular examination Atrial fibrillation, unspecified type (HCC) 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, unspecified vessel or lesion type (HCC) Mitral valve disorder Expected: 01/13/2022, Expires: 03/15/2022 [facility] Work Phone: Comment on above: Expected: 01/13/2022 , Expires: 03/15/2022 Start: 01-13-2022 End: 03-15-2022 Comprehensive metabolic 2000 panel - Serum or Plasma COMP METABOLIC PANEL Lab Routine Encounter for preoperative vascular examination Pre-operative cardiovascular examination Atrial fibrillation, unspecified type (HCC) 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, unspecified vessel or lesion type (HCC) Mitral valve disorder Expected: 01/13/2022, Expires: 03/15/2022 [facility] Work Phone: Comment on above: Expected: 01/13/2022 , Expires: 03/15/2022 Start: 01-13-2022 End: 03-15-2022 Natriuretic peptide.B prohormone N-Terminal [Mass/volume] in Serum or Plasma NT PRO BNP Lab Routine Encounter for preoperative vascular examination Shortness of breath Pre-operative cardiovascular examination Atrial fibrillation, unspecified type (HCC) 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, unspecified vessel or lesion type (HCC) Mitral valve disorder Expected: 01/13/2022 (Approximate), Expires: 03/15/2022 [facility] Work Phone: Comment on above: Expected: 01/13/2022 (Approximate), Expires: 03/15/2022 Start: 01-13-2022 End: 03-15-2022 PT panel - Platelet poor plasma by Coagulation assay PROTHROMBIN TIME/PT Lab Routine Encounter for preoperative vascular examination Pre-operative cardiovascular examination Atrial fibrillation, unspecified type (HCC) 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, unspecified vessel or lesion type (HCC) Mitral valve disorder Expected: 01/13/2022 (Approximate), Expires: 03/15/2022 [facility] Work Phone: Comment on above: Expected: 01/13/2022 (Approximate), Expires: 03/15/2022 Start: 10-09-2021 Influenza vaccination INFLUENZA (#1) [facility] Start: 02-08-2021 ADVANCE DIRECTIVE DISCUSSION ADVANCE DIRECTIVE DISCUSSION [facility] Start: 02-08-2021 DEPRESSION ASSESSMENT DEPRESSION ASS ESSMENT [facility] Start: 09-01-2015 PNEUMOCOCCAL: 65+ (1 - PCV) PNEUMOCOCCAL: 65+ (1 - PCV) [facility] Start: 2010 RSV Vaccine (1 - 1-d ose 60+ series) RSV Vaccine (1 - 1-dose 60+ series) [facility] Start: 2010 RSV Vaccine (1 - Ris k 60-74 years 1-dose series) RSV Vaccine (1 - Risk 60-74 years 1-dose series) [facility] Start: 2000 SHINGRIX VACCINE (1 of 2) GONG GRIX VACCINE (1 of 2) [facility] Start: 09-01-1995 COLOGUARD (FIT-DNA) COLOGUARD (FIT-D NA) [facility] Start: 09-01-1995 Colonoscopy COLONOSCOPY [facility] Start: 09-01-1995 COLORECTAL CANCER SCREENING COLORECTAL CANCER SCREENING [facility] Start: 09-01-[address] COLONOGRAPHY [facility] Start: 09-01-1995 FECAL OCCULT BLOOD FECAL OCCULT BLOO D [facility] Start: 09-01-1995 Screening for malign ant neoplasm of colon [facility] Start: 09-01-1995 SIGMOIDOSCOPY SIGMOIDOSCOPY [facility] Start: 1985 LIPID SCREEN LIPID SCREEN [facility] Start: 1969 Urine microalbumin profile DTAP,TDAP,TD (1 - Tdap) [facility] Start: 1968 ANNUAL PCP TEAM PRINTED [employer] BOARDS CONTACT PRINTER NANO DISEASE VISIT ANNUAL PCP TEAM CHRONIC DISEASE VISIT [facility] Start: 1968 Anxiety Screening Anxiety Screening [facility] Start: 1968 BP CONTROLLED (<130/80) BP CONTROLLE D (<130/80) [facility] Start: 1968 Hepatitis B surface antibody level LDL CHOLESTEROL [facility] Start: 1968 HEPATITIS C SCREENING HEPATITIS C [facility] Start: 1968 Hepatitis C screening Hepatitis C [facility] Start: 03-03-1951 COVID-19 VACCINE (#1) COVID-19 VACCI NE (#1) [facility] CARDIAC REHAB II OUT PT ([place]) CARDIAC REHAB II OUTPT ([place], [place]) BIC Routine S/P MVR (mitral valve repair) Ordered: 05/05/2022 [facility] Work Phone: Comment on above: Ordered: 05/05/2022 End: 02-12-2023 Ct thorax w/o contrast material CT CHEST CARDIAC WO IVCON Radiology Routine Encounter for preoperative vascular examination Pre-operative cardiovascular examination Atrial fibrillation, unspecified type (HCC) 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, unspecified vessel or lesion type (HCC) Mitral valve disorder 1 Occurrences starting 01/13/2022 until 02/12/2023 [facility] Work Phone: Comment on above: 1 Occurrences starti ng 01/13/2022 until 02/12/2023 End: 01-13-2023 ECG COMPLETE ECG COMPLETE ECG Routine Encounter for preoperative vascular examination Pre-operative cardiovascular examination Atrial fibrillation, unspecified type (HCC) 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, unspecified vessel or lesion type (HCC) Mitral valve disorder 1 Occurrences starting 01/13/2022 until 01/13/2023 [facility] Work Phone: Comment on above: 1 Occurrences starti ng 01/13/2022 until 01/13/2023 End: 05-06-2023 ECHO LIMITED ECHO LIMITED Cardiology Routine S/P MVR (mitral valve repair) 1 Occurrences starting 05/05/2022 until 05/06/2023 [facility] Work Phone: Comment on above: 1 Occurrences starti brooks 05/05/2022 until 05/06/2023 End: 01-13-2023 Echocardiography ECHO Cardiology Routine Encounter for preoperative vascular examination Pre-operative cardiovascular examination Atrial fibrillation, unspecified type (HCC) 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, unspecified vessel or lesion type (HCC) Mitral valve disorder 1 Occurrences starting 01/13/2022 until 01/13/2023 [facility] Work Phone: Comment on above: 1 Occurrences starti ng 01/13/2022 until 01/13/2023 LUNG DIFFUSION CAPAC ITY (DLCO) LUNG DIFFUSION CAPACITY (DLCO) PFT Routine Pre-operative cardiovascular examination Paroxysmal atrial fibrillation (HCC) Atherosclerosis of coronary artery of saxman heart, unspecified vessel or lesion type, unspecified whether angina present Mitral valve disorder Ordered: 02/06/2022 [facility] Work Phone: Comment on above: Ordered: 02/06/2022 End: 03-08-2023 Radiologic exam chest 2 views XR CHEST 2V FRONTAL/LAT Radiology Routine Pre-operative cardiovascular examination Paroxysmal atrial fibrillation (HCC) Atherosclerosis of coronary artery of saxman heart, unspecified vessel or lesion type, unspecified whether angina present Mitral valve disorder 1 Occurrences starting 02/06/2022 until 03/08/2023 [facility] Work Phone: Comment on above: 1 Occurrences starti ng 02/06/2022 until 03/08/2023 RED BLOOD CELLS, ADULT RED BLOOD CELLS, ADULT Blood Bank Routine S/P AVR (aortic valve replacement) Ordered: 03/04/2022 [facility] Work Phone: Comment on above: Ordered: 03/04/2022 SPIROMETRY BASELINE ONLY SPIROME TRY BASELINE ONLY PFT Routine Pre-operative cardiovascular examination Paroxysmal atrial fibrillation (HCC) Atherosclerosis of coronary artery of saxman heart, unspecified vessel or lesion type, unspecified whether angina present Mitral valve disorder Ordered: 02/06/2022 [facility] Work Phone: Comment on above: Ordered: 02/06/2022 US CAROTID ARTERIES [facility] US CAROTID ARTERIES [facility] Vascular Lab Routine Other specified symptoms and signs involving the circulatory and respiratory systems Pre-operative cardiovascular examination Paroxysmal atrial fibrillation (HCC) Atherosclerosis of coronary artery of saxman heart, unspecified vessel or lesion type, unspecified whether angina present Mitral valve disorder Ordered: 02/06/2022 [facility] Work Phone: Comment on above: Ordered: 02/06/2022 US LEG VEIN MAP [facility] US LEG VEIN MAP [facility] Vascular Lab Routine Shortness of breath Pre-operative cardiovascular examination Paroxysmal atrial fibrillation (HCC) Atherosclerosis of coronary artery of saxman heart, unspecified vessel or lesion type, unspecified whether angina present Mitral valve disorder Ordered: 02/06/2022 [facility] Work Phone: Comment on above: Ordered: 02/06/2022 [facility] Immunizations Immunization Date Immunization Notes Care Provider Sheela pollard 12-13-2017 pneumococcal polysaccharide vaccine, [address] 05-11-2016 pneumococcal conjuga te vaccine, [address] 02-08-2014 influenza nasal, unspecified formulation [address] 02-08-2014 influenza virus vaccine, unspecified formulation JANEY MALAGON ORTHOTIC AIDE-PHOTOENGRAVING PHOTOGRAPHER [facility] 11-28-2012 diphtheria, tetanus toxoids and acellular pertussis vaccine, unspecified formulation [address] 11-28-2012 pneumococcal vaccine , unspecified formulation [address] Payers Date Payer Category Payer Self-pay [id number] 2024 Unknown [id number] 2021 Private Health Insurance MMO MED ICARE SUPPLEMENT [id number] 2021 Unknown MMO MMO MEDICARE SUPPLEMENT [id number] 2021-Present [phone] [address] [place] [address] Indemnity [id number] 2021 Medicare [id number] 2021 Unknown [id number] 2015 Medicare [id number] 1950 Unknown [id number] 1950 Unknown [id number] 1950 Unknown [id number] 1950 Unknown [id number] .[id number]. 1950 Unknown [id number] 1950 Unknown [id number] 1950 Unknown [id number]. 627 1950 Unknown [id number]. 627 1950 Unknown [id number]. 627 Unknown [id number]. 462 Social History Date Type Detail Facility Start: 03-12-2020 End: 01-21-2022 Never smoked tobacco (finding) [facility] Start: 1950 Sex Assigned At Male A [facility] Start: 05-07-2021 End: 06-12-2022 Tobacco smoking status OKIS Unknown if ever smoked [facility] Start: 1950 Sex Assigned At Not on file C [facility] Start: 01-21-2022 Tobacco use and exposure Smokeless tobacco non-user [facility] Start: 01-21-2022 End: 05-05-2022 Alcohol intake Ex-drinker (finding) [facility] Start: 05-05-2022 History of Social function [facility] Start: 05-05-2022 Tobacco use panel [facility] Start: 06-12-2022 Tobacco smoking stat us NHIS Ex-smoker (finding) [facility] Medical Equipment Procedure Code Equipment Code Equipment Original Text Equipment Identifier Dates Band Mujica Ancor e 33mm Annuloplasty Chordal Guide - [id number] Start: 03-05-2022 Patch Thk.5mm Wesley vine Pericardial [id number] Cardiovascular Resilience Durable - [id number] Start: 03-05-2022 [place] Thk1.65mm P tfe 4x.5in Cardiovascular Sterile - [id number] Start: 03-05-2022 Functional Status Date Assessment Result Facility 09-15-2021 Functional Status Ambulating in perez, Ambulating in room [facility] 09-15-2021 Functional Status [facility] 09-15-2021 Functional Status Demonstrates Correct Ca ll Light Use Yes [facility] 09-15-2021 Functional Status Room check performed [facility] 09-15-2021 Functional Status [facility] Mental Status Date Assessment Result Facility 09-15-2021 Mental Status Orientation Oriented x 4 [facility] 09-15-2021 [facility] 09-15[facility]21 [facility] Clinical Notes 05-10-2021 to 06-13-2024 Telephone Encounter - Danitza Griffith RN - 06/13/2024 8:48 AM EDTTelephone Encounter - Danitza Griffith RN - 06/13/2024 8:48 AM EDTTelephone Encounter - Racquel Garibay - 09/16/2023 6:49 PM EDT Note Date & Type Note Facility 06-13-2024 Telephone encounter Note Images from the original note were not included. [facility] Phone Encounter DATE of SERVICE: 06/13/2024 TIME of SERVICE: 8:48 AM Status: FYI Service/Provider: Cardiac Surgery Andrew Ng M.D. Reason for call: Care Coordination Contact information: [phone] Resolution: Other : Emailed document Comments: Pt called requesting a copy of his Operative Report to be emailed to him for purposes of applying for disability. Document sent, advised to call back if any further documentation is needed. Pt verbalizes understanding. Danitza Griffith RN Date of Resolution: 06/13/2024 Time of Resolution 8:48 AM [facility] 06-13-2024 Miscellaneous Notes Images from the original note were not included. [facility] Phone Encounter DATE of SERVICE: 06/13/2024 TIME of SERVICE: 8:48 AM Status: FYI Service/Provider: Cardiac Surgery Andrew Ng M.D. Reason for call: Care Coordination Contact information: [phone] Resolution: Other : Emailed document Comments: Pt called requesting a copy of his Operative Report to be emailed to him for purposes of applying for disability. Document sent, advised to call back if any further documentation is needed. Pt verbalizes understanding. Danitza Griffith RN Date of Resolution: 06/13/2024 Time of Resolution 8:48 AM documented in this encounter [facility] 09-16-2023 Telephone encounter Note Admin uploaded outside lab and echo report to onbase. Racquel Garibay September 16, 2023 6:49 PM [facility] 09-16-2023 Miscellaneous Notes Admin uploaded outside lab and echo report to onbase. Racquel Garibay September 16, 2023 6:49 PM documented in this encounter [facility] 03-11-2023 History of Presen t illness Narrative QOL Call Tracking Documentation Follow-Up Type: Phone Call Call Attempt: 1st Attempt Call Status: Left Message documented in this encounter [facility] 06-15-2022 History of Presen t illness Narrative QOL Call Tracking Documentation Follow-Up Type: Phone Call Call Attempt: 1st Attempt Call Status: Patient will complete in MyChart documented in this encounter [facility] 05-06-2022 Miscellaneous Notes Patient contacted office via Fax to request for orders to be faxed to [facility]. Orders sent via fax and confirmation received. Sheldon Hernandez May 06, 2022 11:42 AM documented in this encounter [facility] 05-06-2022 Miscellaneous Notes Patient called back in with fax number: [phone] Patient went to fill his Entresto and the reconstructive dentist - Dr. Burns refused to fill the medication because it will cause further issues with this light headiness. Per patient Dr. Burns is requesting a written explanation for the medication change as he feels this will make the patients' symptoms worse. Per patient request response to to be sent via fax. Patient will call back with fax number. Sheldon Hernandez May 05, 2022 4:11 PM documented in this encounter [facility] 05-05-2022 Instructions Luis Tabor MD - 05/05/2022 9:58 AM EDT Do not take entresto with losartan. 4-5 days after starting entresto need blood draw. Stop immediately if worsening lightheadness. Start cardiac rehab documented in this encounter [facility] 05-05-2022 History of Presen t illness Narrative Images from the original note were not included. [facility] Department of Cardiovascular Medicine SECTION OF CLINICAL CARDIOLOGY OUTPATIENT VISIT DATE May 05, 2022 OUTPATIENT VISIT TYPE ESTABLISHED PRIMARY CARE PHYSICIAN: [place] [address] REFERRING PHYSICIAN: No referring provider defined for this encounter. CHIEF COMPLAINT: Follow-up post mitral valve repair HISTORY OF PRESENT ILLNESS: Mr. Tran is a 71 year old male who presents today for a cardiovascular medicine follow-up visit after undergoing MVr (#33 Maud band, anterior knee records), coronary artery bypass x1 (LAD-diagonal), left atrial appendage closure (primary internal). And feels well apart from sensation of lightheadedness primarily from a sitting position to a standing position that resolves immediately. He denies chest pain, shortness of breath, orthopnea, cough, edema, palpitations, PND, lightheadedness or syncope. PAST CARDIAC HISTORY: PAST MEDICAL HISTORY Diagnosis Date A-fib (HCC) Aortic valve disorder AVr 1987; s/p mechanical AVR 2009 CAD (coronary artery disease) Cardiomyopathy (HCC) Carotid artery disease (HCC) HFrEF (heart failure with reduced ejection fraction) (HCC) HLD (hyperlipidemia) Mitral regurgitation Mitral valve disorder PAST SURGICAL HISTORY Procedure Laterality Date CAROTID ENDARTERECTOMY Left 2010 HEART SURGERY HX AVr-1988 (Dr. [facility]), redo mechanical AVR (ON-X) / Ascending - 2008 ([facility]) HERNIA REPAIR HX PAST SURGICAL HISTORY OF 03/05/2022 mitral valve repair SOCIAL HISTORY Social History Tobacco Use Smoking status: Never Smokeless tobacco: Never Vaping Use Vaping Use: Never used Substance Use Topics Alcohol use: Not Currently Drug use: Never FAMILY HISTORY Problem Relation Age of Onset Colon Cancer Mother Colon Cancer Father Heart Attack Father Brain Cancer Father Colon Cancer Sister other (brain tumor) Sister Heart Attack Brother s/p PCI ALLERGIES: ALLERGIES Allergen Reactions Penicillins Rash Finasteride Other: See Comments dizziness Lisinopril Cough, Other: See Comments Spironolactone Other: See Comments dizziness MEDICATIONS: sacubitril-valsartan (ENTRESTO) 24-26 mg tablet^Take 1 tablet by mouth twice daily. Do not take with cozar.^Disp: 90 tablet^Rfl: 1 metOLazone (ZAROXOLYN) 2.5 mg tablet^2.5 mg. Take once weekly on Wednesdays.^Disp: ^Rfl: furosemide (LASIX) 40 mg tablet^Take 1 tablet by mouth once daily.^Disp: ^Rfl: (Patient taking differently: Take 40 mg by mouth twice daily.) potassium chloride 20 mEq/15 mL solution^Take 30 mL by mouth once daily.^Disp: ^Rfl: (Patient taking differently: Take by mouth twice daily.) atorvastatin (LIPITOR) 40 mg tablet^Take 1 tablet by mouth daily at bedtime.^Disp: 30 tablet^Rfl: 2 aspirin, enteric coated (ASPIRIN, ENTERIC COATED) 81 mg EC tablet^Take 81 mg by mouth once daily.^Disp: ^Rfl: acetaminophen (TYLENOL) 500 mg tablet^Take 500 mg by mouth every 4 hours as needed.^Disp: ^Rfl: busPIRone (BUSPAR) 10 mg tablet^Take 10 mg by mouth twice daily.^Disp: ^Rfl: carvedilol (COREG) 6.25 mg tablet^Take 0.5 tablets by mouth twice daily.^Disp: ^Rfl: cholecalciferol (VITAMIN D3) 1,000 unit tab tablet^Take 2 tablets by mouth once daily.^Disp: ^Rfl: citalopram (CELEXA) 20 mg tablet^Take 20 mg by mouth once daily.^Disp: ^Rfl: cyanocobalamin (VITAMIN B-12) 1,000 mcg tab^Take 1 tablet by mouth once daily.^Disp: ^Rfl: loratadine (CLARITIN) 10 mg tablet^Take 1 tablet by mouth once daily as needed.^Disp: ^Rfl: losartan (COZAAR) 25 mg tablet^Take 0.5 tablets by mouth once daily.^Disp: ^Rfl: tamsulosin (FLOMAX) 0.4 mg^Take 0.4 mg by mouth daily at bedtime.^Disp: ^Rfl: warfarin (COUMADIN) 2.5 mg tablet^Take by mouth.^Disp: ^Rfl: MULTIVITAMIN ORAL^Take 1 tablet by mouth once daily.^Disp: ^Rfl: REVIEW OF SYSTEMS: PHYSICAL EXAMINATION: BP 140/71 (BP Site: Left Arm) Pulse 66 Wt 71.5 kg (157 lb 11.2 oz) SpO2 95% BMI 25.45 kg/m no orthostatic hypotension General: Well appearing, in no acute distress. Skin: No clubbing, no cyanosis. Eyes: Extra ocular movements intact Neck: No jugular venous distention, no carotid bruits, carotids have a normal upstroke, no palpable thyromegaly. Lungs: Clear to auscultation bilaterally, no wheezing or rhonchi. Heart: Regular rhythm, PMI not displaced, S1, S2 mechanical no S3, no S4, no heaves, no rub Abdomen: Soft, nontender, bowel sounds normal, no palpable organomegaly, no bruits. Extremities: No peripheral edema . Neuro: Oriented to person, place and time, alert, cooperative, gait coordinated. CARDIOVASCULAR MEDICINE TESTING: Last ECHO Result Conclusion ECHO Collected: 05/05/2022 8:05 AM (Final result) Impression: CONCLUSIONS: - Technically difficult exam due to body habitus and suboptimal positioning. - Exam indication: s/p CABG, MVr - The left ventricle is dilated. Left ventricular systolic function is moderately decreased. EF = 40 5% (visual est.) - The right ventricle is normal in size. Right ventricular systolic function is normal. - Post mitral valve repair. Mujica Mitral Valve Annuloplasty Ring (size #33). There is moderate (2+) mitral valve regurgitation. Regurgitant orifice area (PISA) is 0.20 cm . The peak gradient is 5 mmHg and the mean gradient is 2 mmHg. Heart rate = 60 bpm. Prior Pk/Mn gradients were 6/2 mmHg obtained at a HR of 76 bpm. - Mechanical prosthetic aortic valve. There is trace (trace - 1+) aortic valve regurgitation. The peak gradient is 11 mmHg, the mean gradient is 5 mmHg and the dimensionless valve index is 0.43. Prior Pk/Mn gradienst were 10/5 mmHg. - Estimated right ventricular systolic pressure is likely underestimated due to a weak or incomplete tricuspid regurgitation signal and is, at least, 39 mmHg consistent with mild pulmonary hypertension. Estimated right atrial pressure is 8 mmHg based on IVC assessment. - Exam was compared with the prior CC echocardiographic exam performed on 03/09/2022. Mitral regurgitation has increased slightly. LV systolic function is similar. * * * Final * * * Last EKG Result Conclusion ECG COMPLETE Collected: 05/05/2022 6:48 AM (Preliminary result) Impression: ATRIAL FIBRILLATION WITH SLOW VENTRICULAR RESPONSE LEFT AXIS DEVIATION COMPLETE LEFT BUNDLE BRANCH BLOCK ABNORMAL ECG Last CT Result Conclusion CT CHEST CARDIAC WO IVCON Exam End: 01/21/2022 10:31 AM (Final result) Impression: IMPRESSION: 1. S/P bileaflet mechanical aortic replacement in stable position. The thoracic aorta is normal in course, caliber, and has mild atherosclerotic changes. There is no definite acute aortic pathology. 2. Proximity of the cardiovascular structures to the sternum: left brachiocephalic vein 5 mm, right ventricle immediately behind. 3. Severe coronary calcifications identified, though this study was not optimized for coronary artery evaluation. 4. Severe left and mild right atrial dilation. 5. Moderate pericardial calcifications lateral to the left ventricle. Marking Machine Operator: FELA Transcribe Date/Time: Jan 21 2022 11:45A Dictated by : JASSI FREEDMAN MD This examination was interpreted and the report reviewed and electronically signed by: JASSI FREEDMAN MD on Jan 21 2022 12:39PM EST I have personally reviewed the Echocardiogram. IMPRESSION: Mr. Tran is a 71 year old male with history of BAV (status post AVr 1988, status post mechanical AVR 2008) status post ascending aortic aneurysm repair (2008), history of carotid stenosis status post left carotid endarterectomy, hypertension, paroxysmal atrial fibrillation who underwent mitral valve repair and coronary artery bypass as described above and comes in for follow-up. 1. Cardiomyopathy with reduced LV systolic function 2. Paroxysmal atrial fibrillation 3. Coronary artery disease 4. Status post mitral valve repair as described 5. Status post aortic valve replacement as described (mechanical) 6. Orthostasis PLAN AND RECOMMENDATIONS: I have personally reviewed patient's cardiac echo and agree with findings. LV systolic function is reduced. I did explain the patient this may be related to loading conditions post mitral valve replacement. Though reluctant to initiate Entresto I do believe that the risk benefit are in favor for initiating Entresto and if the patient were to develop any symptoms will be discontinued, as he has no evidence of hypotension and no evidence of orthostatic hypotension per examination. I had a lengthy discussion and we agreed that he will initiate the drug and if he were to develop symptoms he will discontinue it immediately and notify us. We will need a repeat echo in 3 months to reassess his LV systolic function CONTACT INFORMATION: Luis Tabor MD Section of Clinical Cardiology [facility] Department of Cardiovascular Medicine [facility] Desk [place] [address] Office Office Appointments: [phone] documented in this encounter [facility] 04-16-2022 History of Presen t illness Narrative QOL Call Tracking Documentation Follow-Up Type: Phone Call Call Attempt: 1st Attempt Call Status: Complete documented in this encounter [facility] 04-03-2022 Miscellaneous Notes [facility] Contact Center Inbound Phone Encounter DATE of SERVICE: 04/03/2022 TIME of SERVICE: 2:27 PM Status: FYI Service/Provider: Cardiac Surgery Andrew Ng M.D. Reason for call: Incisions Contact information: Ld Tran [phone] Resolution: Reinforced education Comments: Sharita Tran called the [facility] post-discharge line to say he has some drainage from one of his chest incisions below his right breast. He said the drainage is clear and he denies a fever. He is asking if he can put a Band-Aid on it. He will be seeing his PCP on Wednesday and will have them look at it. I asked that he go to an ED if he develops a fever or if the drainage becomes purulent. He verbalized understanding and was encouraged to call us again if he has any further questions or concerns. Rachelle Carballo RN Date of Resolution: 04/03/2022 Time of Resolution 2:27 PM documented in this encounter [facility] 03-26-2022 Instructions Charlotte Ortega PA-C - 03/26/2022 12:44 PM EST Follow up with primary care doctor in two weeks with EKG, CBC, CMP, CXR Follow up reconstructive dentist in 6-8 weeks post op Continue deep breathing exercises five times an hour. Antibiotic use is recommended before all dental procedures. This is recommended by the [employer] to decrease your risk of bacterial endocarditis. Please mention this to your other healthcare providers prior to having these types of procedures done. documented in this encounter [facility] 03-26-2022 History of Presen t illness Narrative Images from the original note were not included. [facility] Department of Cardiovascular Medicine DEPARTMENT OF CARDIAC SURGERY OUTPATIENT VISIT DATE March 26, 2022 OUTPATIENT VISIT TYPE POSTOPERATIVE Sharita Tran is a 71 year old male who presents who is here for post operative follow up HPI: Redo Mvr (#33 Mujica Band, Anterior Neochords), CABGx1 (LAD-[facility]), LAAC (primer internal) Surgeon: Dr Ng Discharged on 03/13/22 PAST MEDICAL HISTORY Diagnosis Date A-fib (HCC) Aortic valve disorder AVr 1987; s/p mechanical AVR 2009 CAD (coronary artery disease) Cardiomyopathy (HCC) Carotid artery disease (HCC) HFrEF (heart failure with reduced ejection fraction) (HCC) HLD (hyperlipidemia) Mitral regurgitation Mitral valve disorder PAST SURGICAL HISTORY Procedure Laterality Date CAROTID ENDARTERECTOMY Left 2010 HEART SURGERY HX AVr-1988 (Dr. Hyde [facility]), redo mechanical AVR (ON-X) / Ascending - 2008 ([facility]) HERNIA REPAIR HX ALLERGIES Allergen Reactions Penicillins Rash Finasteride Other: See Comments dizziness Lisinopril Cough, Other: See Comments Spironolactone Other: See Comments dizziness Current Outpatient Medications Medication Sig metOLazone (ZAROXOLYN) 2.5 mg tablet 2.5 mg. Take once weekly on Wednesdays. furosemide (LASIX) 40 mg tablet Take 1 tablet by mouth once daily. (Patient taking differently: Take 40 mg by mouth twice daily.) potassium chloride 20 mEq/15 mL solution Take 30 mL by mouth once daily. (Patient taking differently: Take by mouth twice daily.) atorvastatin (LIPITOR) 40 mg tablet Take 1 tablet by mouth daily at bedtime. senna-docusate (SENNA-S) 8.6-50 mg per tablet Take 1 tablet by mouth twice daily as needed for constipation. aspirin, enteric coated (ASPIRIN, ENTERIC COATED) 81 mg EC tablet Take 81 mg by mouth once daily. acetaminophen (TYLENOL) 500 mg tablet Take 500 mg by mouth every 4 hours as needed. busPIRone (BUSPAR) 10 mg tablet Take 10 mg by mouth twice daily. carvedilol (COREG) 6.25 mg tablet Take 0.5 tablets by mouth twice daily. cholecalciferol (VITAMIN D3) 1,000 unit tab tablet Take 2 tablets by mouth once daily. citalopram (CELEXA) 20 mg tablet Take 20 mg by mouth once daily. cyanocobalamin (VITAMIN B-12) 1,000 mcg tab Take 1 tablet by mouth once daily. loratadine (CLARITIN) 10 mg tablet Take 1 tablet by mouth once daily as needed. losartan (COZAAR) 25 mg tablet Take 0.5 tablets by mouth once daily. tamsulosin (FLOMAX) 0.4 mg Take 0.4 mg by mouth daily at bedtime. warfarin (COUMADIN) 2.5 mg tablet Take by mouth. MULTIVITAMIN ORAL Take 1 tablet by mouth once daily. acetaminophen (TYLENOL) 325 mg tablet Take 2 tablets by mouth every 6 hours as needed for pain. (Patient not taking: Reported on 03/26/2022) Current Facility-Administered Medications Medication Dose Route Frequency perflutren lipid microspheres 1.3 mL in NaCl (PF) 0.9% 10 mL injection (DEFINITY) INTRAVENOUS DIRECTED PRN sodium chloride 0.9 % (flush) 10 mL (BD POSIFLUSH) 10 mL INTRAVENOUS DIRECTED PRN Chief Complaints: Feeling well Discharge Post Operative Course: Pain scale :incisional pain controlled. Does have some left shoulder and left arm pain which improves when left arm elevated. Appetite: eating 3 small meals Activity: walking ad maria g Elimination: normal, no constipation , urination is normal Sleep: no issues mentioned Mood: normal Incisions/Wounds: healing Review of Systems: HEENT: Negative for fevers since discharge Cardiac: denies angina, palpitations, edema Respiratory: + mild KEATING. Denies orthopnea PND Musculoskeletal: denies joint pain or edema Neuro: Denies denies focal weakness, amarousis fugax or confusion, Denies diplopia Physical Exam: BP 120/70 Pulse 67 Temp 36.7 C (98 F) (Oral) Ht 167.6 cm (5' 6) Wt 69.6 kg (153 lb 6.4 oz) SpO2 97% BMI 24.76 kg/m Appearance: thin, in no acute distress Neck: No neck vein distention Cardiac: regular S1, S2, No murmur, JVD Lungs: Clear breath sounds bilaterally with decreased air entry at the bases bilaterally Abdomen: soft, non tender, non-distended, Normal bowel sounds Extremities: trace peripheral edema Sternum: stable, no click Sternotomy site: healing, clean, dry and intact, no cellulitis Wound: NA SV [place] sites: NA Radial Artery [place] site: NA Procedures: Sutures removed from chest tube sites without difficulty. IMPRESSION & PLAN: 1) Redo Mvr (#33 Mujica Band, Anterior Neochords), CABGx1 (LAD-[facility]), LAAC (primer internal) Surgeon: Dr Ng ASA. Surg path & echo reviewed. -s/p CABG: ASA. BB. Statin Discharged on 03/13/22 Today Incisions healing well Pain controlled Plan: continue asa, BB. Follow up with PCP in 1-2 weeks with EKG, CBC, CMP and CXR Follow up with reconstructive dentist 6-8 weeks post op. 2) s/p remote mechanical AVR: Echo reviewed. Cont Coumadin. PT/INR 2.1 Today INR not drawn today. Plan: continue warfarin and monitored via [facility] 3) Chronic systolic HF: Post-op EF 40%. Lasix for FVO. GDMT as tolerated - have resumed coreg. Will restart Cozaar today Today NYHA II. Lungs CTA except diminished bilateral posterior bases. CXR RESULT: Lines, tubes, and devices: None. Lungs and pleura: Mild bibasilar atelectasis is seen. There is no new focal lung consolidation. No substantial pleural effusion is seen. There is no pneumothorax. Cardiomediastinal silhouette: The cardiomediastinal silhouette is enlarged, stable. The aortic arch is atherosclerotic. Patient is status post median sternotomy, aortic valve replacement and mitral valve repair/annuloplasty. Bones and soft tissues: Degenerative changes are seen in the thoracic spine. Component Latest Ref Rng & Units 03/26/2022 Protein, Total 6.3 - 8.0 g/dL 6.8 Albumin 3.9 - 4.9 g/dL 4.0 Calcium 8.5 - 10.2 mg/dL 9.6 Bilirubin, Total 0.2 - 1.3 mg/dL 0.4 Alkaline Phosphatase 38 - 113 U/L 104 AST 14 - 40 U/L 25 ALT 10 - 54 U/L 15 Glucose 74 - 99 mg/dL 100 (H) BUN 9 - 24 mg/dL 17 Creatinine 0.73 - 1.22 mg/dL 0.91 Sodium 136 - 144 mmol/L 138 Potassium 3.7 - 5.1 mmol/L 4.4 Chloride 97 - 105 mmol/L 101 CO2 22 - 30 mmol/L 26 Anion Gap 9 - 18 mmol/L 11 eGFR >=60 mL/min/1.73m 90 WBC 3.70 - 11.00 k/uL 7.54 RBC 4.20 - 6.00 m/uL 3.17 (L) Hemoglobin 13.0 - 17.0 g/dL 10.4 (L) Hematocrit 39.0 - 51.0 % 32.8 (L) MCV 80.0 - 100.0 fL 103.5 (H) MCH 26.0 - 34.0 pg 32.8 MCHC 30.5 - 36.0 g/dL 31.7 RDW-CV 11.5 - 15.0 % 18.2 (H) Platelet Count 150 - 400 k/uL 245 MPV 9.0 - 12.7 fL 9.6 Absolute nRBC <0.01 k/uL <0.01 Plan: continue Coreg, Lasix, potassium, metolazone and losartan. [facility]. Continue deep breathing, walking program, 2 gram sodium diet, 2 Liter fluid restriction. 4) -Paroxysmal A-fib: Cont Coumadin and Coreg Today Irregularly irregular, Rate controlled. Pt asymptomatic. EKG: Diagnosis: ATRIAL FIBRILLATION WITH PREMATURE VENTRICULAR COMPLEXES LEFT AXIS DEVIATION COMPLETE LEFT BUNDLE BRANCH BLOCK ABNORMAL ECG Plan: continue BB, AC. Summary: Post op care and discharge orders reviewed with the patient- all questions were answered. Surgical sites healing without complication Discussed new medications, dosage, route of administration and side effects Reviewed walking program at home Reviewed diet guidelines for recovery from surgery Return to the clinic prn with signs or symptoms of infection, fevers, SOB, or pleural effusion SBE prophylaxis reviewed Discussed wound care Charlotte Ortega PA-C 03/26/2022 1400 documented in this encounter [facility] 03-26-2022 History of Presen t illness Narrative Radiology Service Progress Note PATIENT NAME: Sharita Tran DATE OF SERVICE: March 26, 2022 TIME: 10:04 AM PATIENT IDENTITY VERIFICATION COMPLETED USING TWO (2) IDENTIFIERS: Name and Date of confirmed by patient verbally. FALL SCREENING: Has the patient had 2 falls in the last year or 1 fall with injury or currently using an Ambulatory Assistive Device (Walker, Cane, Wheelchair, Crutches, etc.)? No PATIENT GENDER DATA: Male PATIENT RELEVANT IMPLANT DATA REVIEWED: Not Applicable RADIOLOGY DEPARTMENT: General X-ray: Exam(s) Completed: Chest X-Ray PERIPHERAL IV DATA: Not applicable SIGNED BY: RT Frank(R) March 26, 2022 10:04 AM documented in this encounter [facility] 03-18-2022 Note ORIGINAL HISTORY: Chest pain COMPARISON: 07 February 2009 FINDINGS: There are sternotomy wires and there are valve prostheses. There are mild streaky and hazy airspace opacities in the left base. The cardiac silhouette is enlarged. The pulmonary vasculature is unremarkable in appearance. There is a remote right-sided rib fracture. IMPRESSION: Interval sternotomy and valve placement with revision of sternotomy wires. Mild left atelectasis and or consolidation. Interpreted by: Amol Rivas MD Preliminary Report By: Amol Rivas MD Electronically signed By Amol Rivas MD Dictated Date: 03/18/2022 12:48:26 PM Prelim Date: 03/18/2022 12:49:53 PM Sign Date: 03/18/2022 12:49:53 PM Ordering Provider: [facility] 03-18-2022 Note ORIGINAL HISTORY: Chest pain COMPARISON: 07 February 2009 FINDINGS: There are sternotomy wires and there are valve prostheses. There are mild streaky and hazy airspace opacities in the left base. The cardiac silhouette is enlarged. The pulmonary vasculature is unremarkable in appearance. There is a remote right-sided rib fracture. IMPRESSION: Interval sternotomy and valve placement with revision of sternotomy wires. Mild left atelectasis and or consolidation. Interpreted by: Amol Rivas MD Preliminary Report By: Amol Rivas MD Electronically signed By Amol Rivas MD Dictated Date: 03/18/2022 12:48:26 PM Prelim Date: 03/18/2022 12:49:53 PM Sign Date: 03/18/2022 12:49:53 PM Ordering Provider: [facility] 03-16-2022 Miscellaneous Notes 1. Have you noticed any increased shortness of breath since you left the hospital? (HVI Red Flag Question) No 2. Have you noticed any increased swelling in your feet, ankles or belly? (Heart Failure Red Flag Question) Yes Pt stated he is experiencing increased swelling in his bi-lateral feet and ankles. Pt stated he called his local caregiver, reconstructive dentist, and a [facility] nurse via the Nurse Resource line. Pt stated the [facility] nurse stated to just follow up with his appt's. that he already has scheduled. Pt stated he is seeing his reconstructive dentist on Wednesday (03/18/22), PCP on Wednesday (03/20/22), and going for labs tomorrow (03/17/22). Pt stated he was informed by the [facility] nurse to elevate his feet above the level of his heart, and to also wear his compression stockings. Pt stated he has not been doing these 2 things yet though. PD nurse reinforced the importance of following these evidence-based research. Pt verbalized understanding. 3. Have you gained more than 2 - 3 pounds since discharge? (HVI Red Flag Question) No Pt stated he is unsure what his weight was when he was discharged, but thinks he has gained weight. Pt has not been weighing himself properly. PD nurse educated pt on the proper way to weigh himself and advised pt to begin tomorrow (03/17/22) morning. Pt verbalized understanding. 4. Have you noticed any changes to your incision or wound since you were discharged as we want to be aware of any signs of infection? (HVI Red Flag Question) No 5. Are you having any increased pain since discharge? If Yes: What type of pain and where? (HVI Red Flag Question) No 6. Have you had any unplanned trips to the Emergency Department or Hospital since you were discharged? If yes: Why? (Heart Failure Red Flag Question) No 7. Do you have any questions about how to take your medications? (Standard Question) No 8. Have you filled your prescriptions [if no-why? If related to cost - Do you need to be connected to someone who can help you with the cost?] Reminder: Please bring in your medications at your follow up appointment. (HVI Red Flag Question) Yes 9. Do you have a doctor s appointment scheduled or is someone working on getting you a follow-up appointment? (Standard Question) Yes Overall Comments: All clear. Closing statement given. PD nurse confirmed/verified patient's and full name. Aldair Sanchez RN documented in this encounter [facility] 03-08-2022 History of Past i llness Narrative Problem Noted Date Resolved Date Atrial flutter 03/08/2022 03/10/2022 Overview: See care note. PEPITO (acute kidney injury) 03/06/20222022 Overview: History: postop Assessment: Creatinine Date Value Ref Range Status 03/10/2022 0.93 0.73 - 1.22 mg/dL Final 03/09/2022 1.03 0.73 - 1.22 mg/dL Final 03/08/2022 1.24 (H) 0.73 - 1.22 mg/dL Final 03/07/2022 1.54 (H) 0.73 - 1.22 mg/dL Final Plan: Continue scheduled Lasix. Avoid hypotension and nephrotoxins. Trend BUN/Cr. Thoracic ascending aortic aneurysm 03/05/2022 03/10/2022 Overview: History: Ascending aortic aneurysm (s/p ascending repair 2008) per last echo 01/21/2022: Mid ascending aorta 3.0 cm Assessment: stable Plan: Repeat echo/CT as necessary Atelectasis 03/05/2022 03/10/2022 Overview: History: postop Assessment: Bilateral on xray. Oxygenation stable on 2L NC. Plan: OOB to chair, Cough/deep breathing, and PEP Stress hyperglycemia 03/05/2022 03/10/2022 Overview: History: no history of DM Assessment: Perioperative insulin resistance and exacerbation of hyperglycemia. Plan: Continue diet and SSI Postoperative pain 03/05/2022 03/10/2022 Overview: History: Postop Assessment: voices adequate control Plan: Continue PRN Tylenol and Oxycodone Coagulopathy 03/05/2022 03/07/2022 Overview: See care coordination note Acute blood loss anemia 03/05/2022 03/08/19 Overview: See care coordination note documented as of this encounter (statuses as of 03/16/2022) [facility] History of Past illness Narrative* Problem Noted Date Resolved Date Atrial flutter 03/08/2022 03/10/2022 Overview: See care note. PEPITO (acute kidney injury) 03/06/20222022 Overview: History: postop Assessment: Creatinine Date Value Ref Range Status 03/10/2022 0.93 0.73 - 1.22 mg/dL Final 03/09/2022 1.03 0.73 - 1.22 mg/dL Final 03/08/2022 1.24 (H) 0.73 - 1.22 mg/dL Final 03/07/2022 1.54 (H) 0.73 - 1.22 mg/dL Final Plan: Continue scheduled Lasix. Avoid hypotension and nephrotoxins. Trend BUN/Cr. Thoracic ascending aortic aneurysm 03/05/2022 03/10/2022 Overview: History: Ascending aortic aneurysm (s/p ascending repair 2008) per last echo 01/21/2022: Mid ascending aorta 3.0 cm Assessment: stable Plan: Repeat echo/CT as necessary Atelectasis 03/05/2022 03/10/2022 Overview: History: postop Assessment: Bilateral on xray. Oxygenation stable on 2L NC. Plan: OOB to chair, Cough/deep breathing, and PEP Stress hyperglycemia 03/05/2022 03/10/2022 Overview: History: no history of DM Assessment: Perioperative insulin resistance and exacerbation of hyperglycemia. Plan: Continue diet and SSI Postoperative pain 03/05/2022 03/10/2022 Overview: History: Postop Assessment: voices adequate control Plan: Continue PRN Tylenol and Oxycodone Coagulopathy 03/05/2022 03/07/2022 Overview: See care coordination note Acute blood loss anemia 03/05/2022 03/08/19 Overview: See care coordination note documented as of this encounter (statuses as of 03/27/2022) [facility] History of Past illness Narrative* Problem Noted Date Resolved Date Atrial flutter 03/08/2022 03/10/2022 Overview: See care note. PEPITO (acute kidney injury) 03/06/20222022 Overview: History: postop Assessment: Creatinine Date Value Ref Range Status 03/10/2022 0.93 0.73 - 1.22 mg/dL Final 03/09/2022 1.03 0.73 - 1.22 mg/dL Final 03/08/2022 1.24 (H) 0.73 - 1.22 mg/dL Final 03/07/2022 1.54 (H) 0.73 - 1.22 mg/dL Final Plan: Continue scheduled Lasix. Avoid hypotension and nephrotoxins. Trend BUN/Cr. Thoracic ascending aortic aneurysm 03/05/2022 03/10/2022 Overview: History: Ascending aortic aneurysm (s/p ascending repair 2008) per last echo 01/21/2022: Mid ascending aorta 3.0 cm Assessment: stable Plan: Repeat echo/CT as necessary Atelectasis 03/05/2022 03/10/2022 Overview: History: postop Assessment: Bilateral on xray. Oxygenation stable on 2L NC. Plan: OOB to chair, Cough/deep breathing, and PEP Stress hyperglycemia 03/05/2022 03/10/2022 Overview: History: no history of DM Assessment: Perioperative insulin resistance and exacerbation of hyperglycemia. Plan: Continue diet and SSI Postoperative pain 03/05/2022 03/10/2022 Overview: History: Postop Assessment: voices adequate control Plan: Continue PRN Tylenol and Oxycodone Coagulopathy 03/05/2022 03/07/2022 Overview: See care coordination note Acute blood loss anemia 03/05/2022 03/08/19 Overview: See care coordination note documented as of this encounter (statuses as of 03/27/2022) [facility] History of Past illness Narrative* Problem Noted Date Resolved Date Atrial flutter 03/08/2022 03/10/2022 Overview: See care note. PEPITO (acute kidney injury) 03/06/20222022 Overview: History: postop Assessment: Creatinine Date Value Ref Range Status 03/10/2022 0.93 0.73 - 1.22 mg/dL Final 03/09/2022 1.03 0.73 - 1.22 mg/dL Final 03/08/2022 1.24 (H) 0.73 - 1.22 mg/dL Final 03/07/2022 1.54 (H) 0.73 - 1.22 mg/dL Final Plan: Continue scheduled Lasix. Avoid hypotension and nephrotoxins. Trend BUN/Cr. Thoracic ascending aortic aneurysm 03/05/2022 03/10/2022 Overview: History: Ascending aortic aneurysm (s/p ascending repair 2008) per last echo 01/21/2022: Mid ascending aorta 3.0 cm Assessment: stable Plan: Repeat echo/CT as necessary Atelectasis 03/05/2022 03/10/2022 Overview: History: postop Assessment: Bilateral on xray. Oxygenation stable on 2L NC. Plan: OOB to chair, Cough/deep breathing, and PEP Stress hyperglycemia 03/05/2022 03/10/2022 Overview: History: no history of DM Assessment: Perioperative insulin resistance and exacerbation of hyperglycemia. Plan: Continue diet and SSI Postoperative pain 03/05/2022 03/10/2022 Overview: History: Postop Assessment: voices adequate control Plan: Continue PRN Tylenol and Oxycodone Coagulopathy 03/05/2022 03/07/2022 Overview: See care coordination note Acute blood loss anemia 03/05/2022 03/08/19 Overview: See care coordination note documented as of this encounter (statuses as of 04/03/2022) [facility] History of Past illness Narrative* Problem Noted Date Resolved Date Atrial flutter 03/08/2022 03/10/2022 Overview: See care note. PEPITO (acute kidney injury) 03/06/20222022 Overview: History: postop Assessment: Creatinine Date Value Ref Range Status 03/10/2022 0.93 0.73 - 1.22 mg/dL Final 03/09/2022 1.03 0.73 - 1.22 mg/dL Final 03/08/2022 1.24 (H) 0.73 - 1.22 mg/dL Final 03/07/2022 1.54 (H) 0.73 - 1.22 mg/dL Final Plan: Continue scheduled Lasix. Avoid hypotension and nephrotoxins. Trend BUN/Cr. Thoracic ascending aortic aneurysm 03/05/2022 03/10/2022 Overview: History: Ascending aortic aneurysm (s/p ascending repair 2008) per last echo 01/21/2022: Mid ascending aorta 3.0 cm Assessment: stable Plan: Repeat echo/CT as necessary Atelectasis 03/05/2022 03/10/2022 Overview: History: postop Assessment: Bilateral on xray. Oxygenation stable on 2L NC. Plan: OOB to chair, Cough/deep breathing, and PEP Stress hyperglycemia 03/05/2022 03/10/2022 Overview: History: no history of DM Assessment: Perioperative insulin resistance and exacerbation of hyperglycemia. Plan: Continue diet and SSI Postoperative pain 03/05/2022 03/10/2022 Overview: History: Postop Assessment: voices adequate control Plan: Continue PRN Tylenol and Oxycodone Coagulopathy 03/05/2022 03/07/2022 Overview: See care coordination note Acute blood loss anemia 03/05/2022 03/08/19 Overview: See care coordination note documented as of this encounter (statuses as of 04/16/2022) [facility] History of Past illness Narrative* Problem Noted Date Resolved Date Atrial flutter 03/08/2022 03/10/2022 Overview: See care note. PEPITO (acute kidney injury) 03/06/20222022 Overview: History: postop Assessment: Creatinine Date Value Ref Range Status 03/10/2022 0.93 0.73 - 1.22 mg/dL Final 03/09/2022 1.03 0.73 - 1.22 mg/dL Final 03/08/2022 1.24 (H) 0.73 - 1.22 mg/dL Final 03/07/2022 1.54 (H) 0.73 - 1.22 mg/dL Final Plan: Continue scheduled Lasix. Avoid hypotension and nephrotoxins. Trend BUN/Cr. Thoracic ascending aortic aneurysm 03/05/2022 03/10/2022 Overview: History: Ascending aortic aneurysm (s/p ascending repair 2008) per last echo 01/21/2022: Mid ascending aorta 3.0 cm Assessment: stable Plan: Repeat echo/CT as necessary Atelectasis 03/05/2022 03/10/2022 Overview: History: postop Assessment: Bilateral on xray. Oxygenation stable on 2L NC. Plan: OOB to chair, Cough/deep breathing, and PEP Stress hyperglycemia 03/05/2022 03/10/2022 Overview: History: no history of DM Assessment: Perioperative insulin resistance and exacerbation of hyperglycemia. Plan: Continue diet and SSI Postoperative pain 03/05/2022 03/10/2022 Overview: History: Postop Assessment: voices adequate control Plan: Continue PRN Tylenol and Oxycodone Coagulopathy 03/05/2022 03/07/2022 Overview: See care coordination note Acute blood loss anemia 03/05/2022 03/08/19 Overview: See care coordination note documented as of this encounter (statuses as of 04/19/2022) [facility] History of Past illness Narrative* Problem Noted Date Resolved Date Atrial flutter 03/08/2022 03/10/2022 Overview: See care note. PEPITO (acute kidney injury) 03/06/20222022 Overview: History: postop Assessment: Creatinine Date Value Ref Range Status 03/10/2022 0.93 0.73 - 1.22 mg/dL Final 03/09/2022 1.03 0.73 - 1.22 mg/dL Final 03/08/2022 1.24 (H) 0.73 - 1.22 mg/dL Final 03/07/2022 1.54 (H) 0.73 - 1.22 mg/dL Final Plan: Continue scheduled Lasix. Avoid hypotension and nephrotoxins. Trend BUN/Cr. Thoracic ascending aortic aneurysm 03/05/2022 03/10/2022 Overview: History: Ascending aortic aneurysm (s/p ascending repair 2008) per last echo 01/21/2022: Mid ascending aorta 3.0 cm Assessment: stable Plan: Repeat echo/CT as necessary Atelectasis 03/05/2022 03/10/2022 Overview: History: postop Assessment: Bilateral on xray. Oxygenation stable on 2L NC. Plan: OOB to chair, Cough/deep breathing, and PEP Stress hyperglycemia 03/05/2022 03/10/2022 Overview: History: no history of DM Assessment: Perioperative insulin resistance and exacerbation of hyperglycemia. Plan: Continue diet and SSI Postoperative pain 03/05/2022 03/10/2022 Overview: History: Postop Assessment: voices adequate control Plan: Continue PRN Tylenol and Oxycodone Coagulopathy 03/05/2022 03/07/2022 Overview: See care coordination note Acute blood loss anemia 03/05/2022 03/08/19 Overview: See care coordination note documented as of this encounter (statuses as of 05/06/2022) [facility] History of Past illness Narrative* Problem Noted Date Resolved Date Atrial flutter 03/08/2022 03/10/2022 Overview: See care note. PEPITO (acute kidney injury) 03/06/20222022 Overview: History: postop Assessment: Creatinine Date Value Ref Range Status 03/10/2022 0.93 0.73 - 1.22 mg/dL Final 03/09/2022 1.03 0.73 - 1.22 mg/dL Final 03/08/2022 1.24 (H) 0.73 - 1.22 mg/dL Final 03/07/2022 1.54 (H) 0.73 - 1.22 mg/dL Final Plan: Continue scheduled Lasix. Avoid hypotension and nephrotoxins. Trend BUN/Cr. Thoracic ascending aortic aneurysm 03/05/2022 03/10/2022 Overview: History: Ascending aortic aneurysm (s/p ascending repair 2008) per last echo 01/21/2022: Mid ascending aorta 3.0 cm Assessment: stable Plan: Repeat echo/CT as necessary Atelectasis 03/05/2022 03/10/2022 Overview: History: postop Assessment: Bilateral on xray. Oxygenation stable on 2L NC. Plan: OOB to chair, Cough/deep breathing, and PEP Stress hyperglycemia 03/05/2022 03/10/2022 Overview: History: no history of DM Assessment: Perioperative insulin resistance and exacerbation of hyperglycemia. Plan: Continue diet and SSI Postoperative pain 03/05/2022 03/10/2022 Overview: History: Postop Assessment: voices adequate control Plan: Continue PRN Tylenol and Oxycodone Coagulopathy 03/05/2022 03/07/2022 Overview: See care coordination note Acute blood loss anemia 03/05/2022 03/08/19 Overview: See care coordination note documented as of this encounter (statuses as of 05/08/2022) [facility] History of Past illness Narrative* Problem Noted Date Resolved Date Atrial flutter 03/08/2022 03/10/2022 Overview: See care note. PEPITO (acute kidney injury) 03/06/20222022 Overview: History: postop Assessment: Creatinine Date Value Ref Range Status 03/10/2022 0.93 0.73 - 1.22 mg/dL Final 03/09/2022 1.03 0.73 - 1.22 mg/dL Final 03/08/2022 1.24 (H) 0.73 - 1.22 mg/dL Final 03/07/2022 1.54 (H) 0.73 - 1.22 mg/dL Final Plan: Continue scheduled Lasix. Avoid hypotension and nephrotoxins. Trend BUN/Cr. Thoracic ascending aortic aneurysm 03/05/2022 03/10/2022 Overview: History: Ascending aortic aneurysm (s/p ascending repair 2008) per last echo 01/21/2022: Mid ascending aorta 3.0 cm Assessment: stable Plan: Repeat echo/CT as necessary Atelectasis 03/05/2022 03/10/2022 Overview: History: postop Assessment: Bilateral on xray. Oxygenation stable on 2L NC. Plan: OOB to chair, Cough/deep breathing, and PEP Stress hyperglycemia 03/05/2022 03/10/2022 Overview: History: no history of DM Assessment: Perioperative insulin resistance and exacerbation of hyperglycemia. Plan: Continue diet and SSI Postoperative pain 03/05/2022 03/10/2022 Overview: History: Postop Assessment: voices adequate control Plan: Continue PRN Tylenol and Oxycodone Coagulopathy 03/05/2022 03/07/2022 Overview: See care coordination note Acute blood loss anemia 03/05/2022 03/08/19 Overview: See care coordination note documented as of this encounter (statuses as of 05/18/2022) [facility] History of Past illness Narrative* Problem Noted Date Resolved Date Atrial flutter 03/08/2022 03/10/2022 Overview: See care note. PEPITO (acute kidney injury) 03/06/20222022 Overview: History: postop Assessment: Creatinine Date Value Ref Range Status 03/10/2022 0.93 0.73 - 1.22 mg/dL Final 03/09/2022 1.03 0.73 - 1.22 mg/dL Final 03/08/2022 1.24 (H) 0.73 - 1.22 mg/dL Final 03/07/2022 1.54 (H) 0.73 - 1.22 mg/dL Final Plan: Continue scheduled Lasix. Avoid hypotension and nephrotoxins. Trend BUN/Cr. Thoracic ascending aortic aneurysm 03/05/2022 03/10/2022 Overview: History: Ascending aortic aneurysm (s/p ascending repair 2008) per last echo 01/21/2022: Mid ascending aorta 3.0 cm Assessment: stable Plan: Repeat echo/CT as necessary Atelectasis 03/05/2022 03/10/2022 Overview: History: postop Assessment: Bilateral on xray. Oxygenation stable on 2L NC. Plan: OOB to chair, Cough/deep breathing, and PEP Stress hyperglycemia 03/05/2022 03/10/2022 Overview: History: no history of DM Assessment: Perioperative insulin resistance and exacerbation of hyperglycemia. Plan: Continue diet and SSI Postoperative pain 03/05/2022 03/10/2022 Overview: History: Postop Assessment: voices adequate control Plan: Continue PRN Tylenol and Oxycodone Coagulopathy 03/05/2022 03/07/2022 Overview: See care coordination note Acute blood loss anemia 03/05/2022 03/08/19 Overview: See care coordination note documented as of this encounter (statuses as of 06/16/2022) [facility] History of Past illness Narrative* Problem Noted Date Diagnosed Date Resolved Date Atrial flutter 03/08/2022 03/10/2022 Overview: See care note. PEPITO (acute kidney injury) 03/06/2022 Overview: History: postop Assessment: Creatinine Date Value Ref Range Status 03/10/2022 0.93 0.73 - 1.22 mg/dL Final 03/09/2022 1.03 0.73 - 1.22 mg/dL Final 03/08/2022 1.24 (H) 0.73 - 1.22 mg/dL Final 03/07/2022 1.54 (H) 0.73 - 1.22 mg/dL Final Plan: Continue scheduled Lasix. Avoid hypotension and nephrotoxins. Trend BUN/Cr. Thoracic ascending aortic aneurysm 03/05/2022 03/10/2022 Overview: History: Ascending aortic aneurysm (s/p ascending repair 2008) per last echo 01/21/2022: Mid ascending aorta 3.0 cm Assessment: stable Plan: Repeat echo/CT as necessary Atelectasis 03/05/2022 03/10/2022 Overview: History: postop Assessment: Bilateral on xray. Oxygenation stable on 2L NC. Plan: OOB to chair, Cough/deep breathing, and PEP Stress hyperglycemia 03/05/2022 023 Overview: History: no history of DM Assessment: Perioperative insulin resistance and exacerbation of hyperglycemia. Plan: Continue diet and SSI Postoperative pain 03/05/2022 Overview: History: Postop Assessment: voices adequate control Plan: Continue PRN Tylenol and Oxycodone Coagulopathy 03/05/2022 03/07/2022 Overview: See care coordination note Acute blood loss anemia 03/05/202202/09 Overview: See care coordination note documented as of this encounter (statuses as of 03/12/2023) [facility] History of Present illness Narrative* Andrew Ng MD - 03/04/2022 2:00 PM EST Images from the original note were not included. [facility] DEPARTMENT OF CARDIAC SURGERY OUTPATIENT VISIT DATE March 04, 2022 OUTPATIENT VISIT PCP: Syl Ray MD [address] [place] [address] Referring Physician: Nikolay Lockwood MD [address] [place] [address] [place] [id number] Patient Type: Established Visit to Determine Surgery: Yes HPI: Mr. Sharita Tran was previously seen 01/21/2022. Returns for IC prior to planned 3rd time cardiac surgery on 03/05. No interval change in status. I have personally reviewed and analyzed all records that pertain to the patient's prior course in addition to the following studies: Last CT Result Conclusion CT CHEST CARDIAC WO IVCON Exam End: 01/21/2022 10:31 AM (Final result) Impression: IMPRESSION: 1. S/P bileaflet mechanical aortic replacement in stable position. The thoracic aorta is normal in course, caliber, and has mild atherosclerotic changes. There is no definite acute aortic pathology. 2. Proximity of the cardiovascular structures to the sternum: left brachiocephalic vein 5 mm, right ventricle immediately behind. 3. Severe coronary calcifications identified, though this study was not optimized for coronary artery evaluation. 4. Severe left and mild right atrial dilation. 5. Moderate pericardial calcifications lateral to the left ventricle. Marking Machine Operator: FELA Transcribe Date/Time: Jan 21 2022 11:45A Dictated by : JASSI FREEDMAN MD This examination was interpreted and the report reviewed and electronically signed by: JASSI FREEDMAN MD on Jan 21 2022 12:39PM EST Last ECHO Result Conclusion ECHO Collected: 03/09/2022 8:41 AM (Final result) Impression: CONCLUSIONS: - Technically difficult exam due to post op, suboptimal positioning, body habitus and bandages/chest tubes/wound. - Exam indication: Limited S/p CABG, MVr, and LAAC - There is a resting wall motion abnormality in the territory of the RCA and LAD. The abnormal regional wall motion pattern in conjunction with normal regional wall thickness is consistent with a LBBB abnormal conduction delay. - Left ventricular systolic function is moderately decreased. EF = 40 5% (visual est.) Definity contrast used for endocardial border detection. - The right ventricle is normal in size. Right ventricular systolic function is mildly decreased. - Post mitral valve repair. [place] Mitral Valve Annuloplasty Ring (size #33). There is mild (1+) mitral valve regurgitation. The peak gradient is 6 mmHg and the mean gradient is 2 mmHg. Today's gradients obtained at a HR of 76 bpm. There is residual 1+ MR. - Mechanical prosthetic aortic valve. There is no aortic valve regurgitation. The peak gradient is 10 mmHg, the mean gradient is 5 mmHg and the dimensionless valve index is 0.48. Prior pk/mn gradients of 10/5 mmHg. - Exam was compared with the prior CC echocardiographic exam performed on 01/21/2022 (Pre-op TTE). All gradients averaged due to ectopic beats. Lower LVEF today. * * * Final * * * Impression: Pleasant 71 yo male s/p AV repair 2008 and redo AVR 12/2008 (25 On-X). Now with severe MR with posterior leaflet restriction and anterior leaflet overide/flail. No symptoms but has low normal LVEF of50% (low for severe MR) with mild LV dilatation and mild RV dysfunction. Also has 90% mid LAD. Withmultiple MR jets, I don't think that a clip would help. He is strong and robust. Surgery seems likebest option. Some ascending aorta calcification. May be prudent to cannulate right axillary (OR decision) but ascending likely safely clampable distally. Severe LAE may prove beneficial for MV exposure, although exchange of AV could be needed. Pros/cons and options rediscussed. He desires to proceed with surgery. Plan redo with MVr/R, CABG, LAAL, possible redo AVR and possible MAZE. The risks, benefits and anticipated outcomes of the procedure, the risks and benefits of the alternatives to the procedure, and the roles and tasks of the personnel to be involved, were discussed with the patient, and the patient consents to the procedure and agrees to proceed. We discussed the possibility that there could be two patients undergoing surgery in two separate rooms (concurrent surgery) and that I would be present for the critical components of all operations. We also discussed that in an emergency situation, a qualified backup surgeon is available and in the rare event of such aserious situation, that colleague might take over the operation. These findings will be communicated back to the requesting physician via dictated letter. Andrew Ng MD Time = 20 minutes with > 50% counseling. documented in this encounterVan [facility] History of Present illness Narrative* Arminda Jack APRN.[facility] - 03/04/2022 12:44 PM EST AMBULATORY PATIENT EDUCATION READINESS TO LEARN Cognitive Ability: Alert and oriented Motivation To Learn: Interested Family Support: High - Very involved in pt care Instruction Provided To: Patient & Family Patient Learns Best By: Multiple Methods Factors Affecting Learning: None Physical Limitations Affecting Learning: None LEARNING RESPONSE Diagnosis: MR / CAD Education Topic: Pre-Op Open Heart Surgery Instructions Teaching Points: Logistics / Protocols /Complication Prevention How prepared do you feel you are for this visit: 7 Instruction/Supplemental Materials: Cardiac Surgery Information Binder, Individual Instruction Patient/Family Response: Well prepared Follow up plan: Patient/Family to call [facility] with any further questions Referral (Recommendation): None Teach completed, topic: Bactroban instructions given documented in this encounterVan [facility]01-[facility] History of Present illness Narrative* Jaspal Rausch MD - 03/04/2022 12:08 PM EST Cardiothoracic Anesthesiology Preoperative Assessment Service Date: 03/04/2022 Service Time: 12:08 PM Primary Care Physician: Syl Ray MD Subjective Scheduled procedure: Redo Sternotomy MVR/MVr Surgeon: Andrew Ng Scheduled date: 03/05/2022 HPI: Patient is a 71yoM w/ a hx of HTN, HLD, Afib, CAD, s/p AVr and subsequent AVR ( and respectively), presenting now with 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 Patient presents today for pre-operative evaluation for the above surgery. Today we discussed the anesthetic plan, what to expect, and any questions or concerns the patient may have had. We additionally discussed perioperative medications and recommended they hold their losartan, lovenox and furosemide prior to their surgery but otherwise continue their medications as prescribed. Review no known heparin intolerance anticoagulant/antiplatelet medication(s) (warfarin, ASA) - Patient is taking anticoagulant and/or antiplatelet medication with plans of stopping medication no non-cardiac IEDs present no known esophageal disorders blood transfusion consented -. A type & screen is resulted and no atypical antibodies identifed COVID-19 Immunization Status Overdue - COVID-19 VACCINE (1) Overdue - never done No completion, postpone, frequency change, or communication history exists for this topic. The patient has the following: There is no problem list on file for this patient. PAST MEDICAL HISTORY Diagnosis Date A-fib (HCC) Aortic valve disorder AVr 1987; s/p mechanical AVR 2009 CAD (coronary artery disease) Cardiomyopathy (HCC) Carotid artery disease (HCC) HFrEF (heart failure with reduced ejection fraction) (HCC) HLD (hyperlipidemia) Mitral regurgitation Mitral valve disorder PAST SURGICAL HISTORY Procedure Laterality Date PAST SURGICAL HISTORY OF AVr-1987; redo mechanical AVR 2009 FAMILY HISTORY Problem Relation Age of Onset Colon Cancer Mother Colon Cancer Father Heart Attack Father Brain Cancer Father Colon Cancer Sister other (brain tumor) Sister Heart Attack Brother s/p PCI Social History Tobacco Use Smoking status: Never Smokeless tobacco: Never Substance Use Topics Alcohol use: Not Currently Drug use: Never Prior to Admission medications as of 03/04/22 1200 Medication Sig Last Dose Taking mupirocin (BACTROBAN) 2 % ointment Apply a small amount in each nostril using a cotton swab twice the day before surgery and once the morning of surgery. aspirin, enteric coated (ASPIRIN, ENTERIC COATED) 81 mg EC tablet Take 81 mg by mouth once daily. acetaminophen (TYLENOL) 500 mg tablet Take 500 mg by mouth every 4 hours as needed. busPIRone (BUSPAR) 10 mg tablet Take 10 mg by mouth twice daily. carvedilol (COREG) 6.25 mg tablet Take 0.5 tablets by mouth twice daily. cholecalciferol (VITAMIN D3) 1,000 unit tab tablet Take 2 tablets by mouth once daily. citalopram (CELEXA) 20 mg tablet Take 20 mg by mouth once daily. cyanocobalamin (VITAMIN B-12) 1,000 mcg tab Take 1 tablet by mouth once daily. furosemide (LASIX) 40 mg tablet Take 1 tablet by mouth twice daily. gabapentin (NEURONTIN) 100 mg capsule Take 200 mg by mouth three times daily. Patient not taking: Reported on 03/04/2022 loratadine (CLARITIN) 10 mg tablet Take 1 tablet by mouth once daily as needed. Patient not taking: Reported on 03/04/2022 losartan (COZAAR) 25 mg tablet Take 0.5 tablets by mouth once daily. metOLazone (ZAROXOLYN) 2.5 mg tablet Take 1 tablet by mouth as directed. Wednesday and potassium chloride 20 mEq/15 mL solution TAKE 30ML BY MOUTH TWICE A DAY (MIX DOSE WITH 4 OUNCES OF WATER OR OTHER LIQUID; TAKE WITH FOOD) pravastatin sodium (PRAVASTATIN ORAL) Take 40 mg by mouth once daily. tamsulosin (FLOMAX) 0.4 mg Take 0.4 mg by mouth daily at bedtime. warfarin (COUMADIN) 2.5 mg tablet Take by mouth. MULTIVITAMIN ORAL Take 1 tablet by mouth once daily. No medication comments found. ALLERGIES Allergen Reactions Penicillins Rash Finasteride Other: See Comments dizziness Lisinopril Cough, Other: See Comments Spironolactone Other: See Comments dizziness Objective Pain Assessment: Vitals: There were no vitals taken for this visit. Diagnostic tests reviewed for today's visit: Lab Value Units Date High Low HB 12.9 g/dL 03/04/2022 17.0 13.0 HCT 38.9 % 03/04/2022 51.0 39.0 WBC 5.60 k/uL 03/04/2022 11.00 3.70 PLT 134 k/uL 03/04/2022 400 150 NA 137 mmol/L 01/21/2022 144 136 K 3.8 mmol/L 01/21/2022 5.1 3.7 GLUC 104 mg/dL 01/21/2022 99 74 BUN 26 mg/dL 01/21/2022 24 9 CREAT 1.05 mg/dL 01/21/2022 1.22 0.73 PTSEC 12.2 sec 03/04/2022 13.0 9.7 INR 1.2 no uni* 03/04/2022 1.3 0.9 APTT 41.0 sec 03/04/2022 32.4 23.0 ALT 24 U/L 01/21/2022 54 10 AST 28 U/L 01/21/2022 40 14 TBILI 0.5 mg/dL 01/21/2022 1.3 0.2 TSH No results within date range. Lab Value Units Date High Low HCGQT No results within date range. UHCG No results within date range. HCG, BODY* No results within date range. Lab Value Units Date High Low ABORHD No results within date range. ABSCREEN No results within date range. No results found for: HBA1C Recent Results (from the past 8760 hour(s)) XR CHEST 2V FRONTAL/LAT Collection Time: 03/04/22 7:47 AM Impression IMPRESSION: Central pulmonary venous congestion, consistent with known mitral valvular disease. Marking Machine Operator: [facility] Transcribe Date/Time: Mar 04 2022 10:21A Dictated by : MACI NOE, DO This examination was interpreted and the report reviewed and electronically signed by: KOSTA APODACA MD on Mar 04 2022 11:59AM EST ECHO Collection Time: 01/21/22 10:52 AM Impression CONCLUSIONS: - Exam indication: Initial evaluation valvular heart disease - The left ventricle is mildly dilated. Left ventricular systolic function is mildly decreased. EF = 50 5% (2D biplane) Left ventricular diastolic function was not evaluated due to >2+ MR and AF. LBBB. - The right ventricle is normal in size. Right ventricular systolic function is mildly decreased. - The left atrial cavity is severely dilated. - The right atrial cavity is mildly dilated. 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 Regurgitant orifice area (PISA) is 0.91 cm . Anterior > posterior leaflet prolapse with posteriorly directed MR. - Mechanical prosthetic aortic valve. There is trace aortic valve regurgitation. The peak gradient is 10 mmHg and the mean gradient is 5 mmHg. - Estimated right ventricular systolic pressure is 37 mmHg consistent with mild pulmonary hypertension. Estimated right atrial pressure is 3 mmHg based on IVC assessment. - The patient has not had a prior CC echocardiographic exam for comparison. * * * Final (Updated) * * * CT CHEST CARDIAC WO IVCON Collection Time: 01/21/22 10:31 AM Impression IMPRESSION: 1. S/P bileaflet mechanical aortic replacement in stable position. The thoracic aorta is normal in course, caliber, and has mild atherosclerotic changes. There is no definite acute aortic pathology. 2. Proximity of the cardiovascular structures to the sternum: left brachiocephalic vein 5 mm, right ventricle immediately behind. 3. Severe coronary calcifications identified, though this study was not optimized for coronary artery evaluation. 4. Severe left and mild right atrial dilation. 5. Moderate pericardial calcifications lateral to the left ventricle. Marking Machine Operator[facility] Transcribe Date/Time: Jan 21 2022 11:45A Dictated by : JASSI FREEDMAN MD This examination was interpreted and the report reviewed and electronically signed by: JASSI FREEDMAN MD on Jan 21 2022 12:39PM EST ECG COMPLETE Collection Time: 01/21/22 7:14 AM Impression ATRIAL FIBRILLATION WITH OCCASIONAL PREMATURE VENTRICULAR COMPLEXES COMPLETE LEFT BUNDLE BRANCH BLOCK ABNORMAL ECG Confirmed by fellow DEBORAH SEGUNDO MD ([id number]) on 02/12/2022 10:13:12 AM Confirmed by TREY BROCK MD ([id number]) on 02/12/2022 3:05:58 PM Assessment No problem-specific Assessment & Plan notes found for this encounter. ANESTHESIA FINDINGS: Intubation History: No history of difficult intubation Patient is not a candidate for regional or neuraxial anesthesia Significant Anesthesia Considerations: Airway History: No history of difficult airway Prepared for Surgery: optimally prepared for surgery. The Following Tests/Procedures Have Been Initiated: Orders Placed This Encounter mupirocin (BACTROBAN) 2 % ointment Sig: Apply a small amount in each nostril using a cotton swab twice the day before surgery and oncethe morning of surgery. Dispense: 22 g Refill: 0 Order Comments: Supply patient with Q-tips and instruction sheet ASA Class: 4 Planned Anesthetic: general I - PHYSICAL EVALUATION AIRWAY Patient intubated: No. Tracheostomy tube not present Mallampati: III. TM distance: >3 FB. Neck ROM: full ROM without neurological symptoms. Mouth opening: adequate. Short neck: no. Thick neck: no Doshi present: no DENTAL Dental findings: missing tooth/teeth and poor dentition. II - ANESTHESIA PLAN ASA Score: 4 Anesthetic Plan: general Airway type: ETT Beta Luis Manuel Monitoring Plan Post Procedure Analgesic Plan Informed Consent Anesthetic risks, benefits, alternatives, personnel and consent discussed: yes. Patient / Responsible Constitution Party agrees to proceed: yes Patient / Surrogate agrees to blood products: Yes Instructions Given to Patient: Instructions located in the after visit summary. Patient given verbal and written preop instructions and voices comprehension and compliance. Signature: Rusty Manuel MD Patient Name: Sharita Tran Date: March 04, 2022 Time: 12:08 PM Pager/Contact #: documented in this encounterVan [facility]01-25-2023 History of Present illness Narrative* Arminda Jack APRN.[employer]ENG[employer]ING [employer]GR[employer] - 03/04/2022 12:08 PM EST Images from the original note were not included. CONSULT HISTORY and PHYSICAL CARDIOTHORACIC SURGERY Consulting Service: Cardiothoracic Surgery Requesting Provider[facility] [employer] Lead, Luis Tabor MD on 01/21/2022. Opinion/advice regarding: Pre-Op Open Heart Surgery Cardiothoracic Physician: Andrew Ng M.D. . NAME: Sharita Tran Estimated body mass index is 25.02 kg/m as calculated from the following: Height as of an earlier encounter on 03/04/22: 167.6 cm (5' 6). Weight as of an earlier encounter on 03/04/22: 70.3 kg (155 lb). Intended Procedure: Redo, mitral valve repair or replacement (tissue), MAZE, ligation of left atrial appendage, coronary artery bypass grafting, possible redo aortic valve replacement (tissue) - E-signed REDO: Yes, s/p AVr 1988 (Dr. Hyde), s/p redo AVR (On-x) / Ascending 2008 - [facility] Has this patient been previously evaluated for Open Heart Surgery for this condition? Yes, but refered to [facility] for surgical managment HPI: (4) This is a 71 year old male who presents in consultation for an opinion regarding treatmentoptions for atrial fibrillation and mitral insufficiency. He has a past medical history notable forCAD, HLD, HFrEF (EF 40%), and paroxysmal atrial fibrillation. He is s/p AVr by Dr. Hyde in 1988for BAV. He sates he did well for several years and has been monitored by a local reconstructive dentist, butin 2008 he was told that his aortic valve was leaking and subsequently underwent an AVR (On-X [facility])and Ascending repair at [facility] and has been on Warfarin since. He developed p.AF in 2019.He has continued to have serial echocardiograms following his last OHS, but his most recent echo noted severe MR, and as he was considered high risk locally, he was referred to [facility] and seen by Dr. Tabor on 01/21/22. He currently reports that overall he feels well and wouldn't know he had a problem if he didn't have his recent echocardiogram. He states he walks 1-2 miles per day without difficulty, but does admitto needing to stop and rest periodically. He does admit to feeling more fatigued than usual, and has noted periodic lightheadedness without syncope. He denies chest pain, palpitations and leg swelling when asked. Comorbidities include Hyperlipidemia and prior OHS PAST MEDICAL HISTORY: PAST MEDICAL HISTORY Diagnosis Date A-fib (HCC) Aortic valve disorder AVr 1987; s/p mechanical AVR 2009 CAD (coronary artery disease) Cardiomyopathy (HCC) Carotid artery disease (HCC) HFrEF (heart failure with reduced ejection fraction) (HCC) HLD (hyperlipidemia) Mitral regurgitation Mitral valve disorder PAST SURGICAL HISTORY: PAST SURGICAL HISTORY Procedure Laterality Date PAST SURGICAL HISTORY OF AVr-1987; redo mechanical AVR 2009 FAMILY HISTORY: FAMILY HISTORY Problem Relation Age of Onset Colon Cancer Mother Colon Cancer Father Heart Attack Father Brain Cancer Father Colon Cancer Sister other (brain tumor) Sister Heart Attack Brother s/p PCI FAMILY HISTORY OF CAD: Yes SOCIAL HISTORY: Social History Tobacco Use Smoking status: Never Smokeless tobacco: Never Substance Use Topics Alcohol use: Not Currently Drug use: Never SOCIAL HISTORY OF IVDU: No SOCIAL HISTORY OF Smoking: No SOCIAL HISTORY OF Alcohol Dependency: No MEDICATIONS: Prior to Admission Medications: aspirin, enteric coated (ASPIRIN, ENTERIC COATED) 81 mg EC tablet Take 81 mg by mouth once daily. acetaminophen (TYLENOL) 500 mg tablet Take 500 mg by mouth every 4 hours as needed. busPIRone (BUSPAR) 10 mg tablet Take 10 mg by mouth twice daily. carvedilol (COREG) 6.25 mg tablet Take 0.5 tablets by mouth twice daily. citalopram (CELEXA) 20 mg tablet Take 20 mg by mouth once daily. furosemide (LASIX) 40 mg tablet Take 1 tablet by mouth twice daily. loratadine (CLARITIN) 10 mg tablet Take 1 tablet by mouth once daily as needed. losartan (COZAAR) 25 mg tablet Take 0.5 tablets by mouth once daily. metOLazone (ZAROXOLYN) 2.5 mg tablet Take 1 tablet by mouth as directed. Wednesday and potassium chloride 20 mEq/15 mL solution TAKE 30ML BY MOUTH TWICE A DAY (MIX DOSE WITH 4 OUNCES OF WATER OR OTHER LIQUID; TAKE WITH FOOD) pravastatin sodium (PRAVASTATIN ORAL) Take 40 mg by mouth once daily. mupirocin (BACTROBAN) 2 % ointment Apply a small amount in each nostril using a cotton swab twice the day before surgery and once the morning of surgery. cholecalciferol (VITAMIN D3) 1,000 unit tab tablet Take 2 tablets by mouth once daily. cyanocobalamin (VITAMIN B-12) 1,000 mcg tab Take 1 tablet by mouth once daily. tamsulosin (FLOMAX) 0.4 mg Take 0.4 mg by mouth daily at bedtime. warfarin (COUMADIN) 2.5 mg tablet Take by mouth. MULTIVITAMIN ORAL Take 1 tablet by mouth once daily. ALLERGIES: ALLERGIES Allergen Reactions Penicillins Rash Finasteride Other: See Comments dizziness Lisinopril Cough, Other: See Comments Spironolactone Other: See Comments dizziness COMPLETE REVIEW OF SYSTEMS: (10) Constitutional: No weight loss, malaise or fevers/chills. HEENT: Negative for frequent or significant headaches, No changes in hearing or vision, no nose bleeds or other nasal problems, Negative for difficulty swallowing Resp: Negative for cough and wheezing and Positive for shortness of breath on exertion Cardiovascular: SEE HPI Vascular: Denies GI: Negative for abdominal discomfort, blood in stools or black stools or change in bowel habits : No history of dysuria, frequency, or incontinence and No difficulty urination, nocturia >1 times per night or hematuria Endo: Negative for cold or heat intolerance, polyuria, polydipsia and goiter Heme/Lymph: Negative for swollen nodes and Positive for bruises easily/prolonged bleeding (on warfarin) Neurologic: + Neuropathy. No history or headaches, CVA, syncope, paralysis, seizures or tremors Integumentary: Negative for lesions, rash, and itching. Additional systems reviewed: Musculoskeletal: Negative for joint pain or swelling, back pain or muscle pain PHYSICAL EXAM: (8) BP 105/59 Pulse 80 Temp 36.7 C (98 F) (Temporal) Resp 12 Ht 167.6 cm (5' 6) Wt 70.3 kg (155 lb) SpO2 96% BMI 25.02 kg/m BSA 1.81 m Right Handed Constitutional: Well developed, Well nourished , and No acute distress HEENT: EOM's intact Resp: Clear and Respiratory effort: normal Cardiovascular: Regular rate & rhythm, + systolic murmur at the RUSB GI: Soft, Non-tender, Bowel sounds present, and Non-distended Integumentary: Warm and No rash on chest, arms or legs Musculoskeletal: No deformities Neurological/Psychiatric: Oriented to time, place & person , Alert, Steady gait , and No gross focal neurologic deficits Additional systems reviewed: No additional systems reviewed DATA: I have personally reviewed the following data: Dental: Cleared Cardiac Cath : Date- 09/15/21 (outside images in epic) ECHO: Last ECHO Result Conclusion ECHO Collected: 01/21/2022 10:52 AM (Edited Result - FINAL) Impression: CONCLUSIONS: - Exam indication: Initial evaluation valvular heart disease - The left ventricle is mildly dilated. Left ventricular systolic function is mildly decreased. EF = 50 5% (2D biplane) Left ventricular diastolic function was not evaluated due to >2+ MR and AF. LBBB. - The right ventricle is normal in size. Right ventricular systolic function is mildly decreased. - The left atrial cavity is severely dilated. - The right atrial cavity is mildly dilated. 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 Regurgitant orifice area (PISA) is 0.91 cm . Anterior > posterior leaflet prolapse with posteriorly directed MR. - Mechanical prosthetic aortic valve. There is trace aortic valve regurgitation. The peak gradient is 10 mmHg and the mean gradient is 5 mmHg. - Estimated right ventricular systolic pressure is 37 mmHg consistent with mild pulmonary hypertension. Estimated right atrial pressure is 3 mmHg based on IVC assessment. - The patient has not had a prior CC echocardiographic exam for comparison. * * * Final (Updated) * * * CT Scan: Last CT Result Conclusion CT CHEST CARDIAC WO IVCON Exam End: 01/21/2022 10:31 AM (Final result) Impression: IMPRESSION: 1. S/P bileaflet mechanical aortic replacement in stable position. The thoracic aorta is normal in course, caliber, and has mild atherosclerotic changes. There is no definite acute aortic pathology. 2. Proximity of the cardiovascular structures to the sternum: left brachiocephalic vein 5 mm, right ventricle immediately behind. 3. Severe coronary calcifications identified, though this study was not optimized for coronary artery evaluation. 4. Severe left and mild right atrial dilation. 5. Moderate pericardial calcifications lateral to the left ventricle. Marking Machine Operator: [facility] Transcribe Date/Time: Jan 21 2022 11:45A Dictated by : JASSI FREEDMAN MD This examination was interpreted and the report reviewed and electronically signed by: JASSI FREEDMAN MD on Jan 21 2022 12:39PM EST MRI: n/a CXR: XR CHEST 2V FRONTAL/LAT Result Date: 03/04/2022 IMPRESSION: Central pulmonary venous congestion, consistent with known mitral valvular disease. Marking Machine Operator: [facility] Transcribe Date/Time: Mar 04 2022 10:21A Dictated by : MACI NOE DO This examination was interpreted and the report reviewed and electronically signed by: KOSTA APODACA MD on Mar 04 2022 11:59AM EST EKG: Last EKG Result Conclusion ECG COMPLETE Collected: 01/21/2022 7:14 AM (Final result) Impression: ATRIAL FIBRILLATION WITH OCCASIONAL PREMATURE VENTRICULAR COMPLEXES COMPLETE LEFT BUNDLE BRANCH BLOCK ABNORMAL ECG Confirmed by fellow DEBORAH SEGUNDO MD ([id number]) on 02/12/2022 10:13:12 AM Confirmed by TREY BROCK MD ([id number]) on 02/12/2022 3:05:58 PM Ultrasound date- 03/04/2022 20-39% - R 0-19% - L Vein Mappin03/04/2022 IMPRESSION RIGHT Great saphenous vein: Patent with measurements as indicated above. Branches noted at the mid thigh, at the proximal calf and at the distal calf. Small saphenous vein: Chronic post-thrombotic change throughout. LEFT Great saphenous vein: Patent with measurements as indicated above. Branches noted at the proximal thigh, at the knee and at the proximal calf. Small saphenous vein: Patent with measurements as indicated above. Branches noted at the mid calf and at the distal calf. PFT: Date- 03/04/2022 Pre LLN Pred ULN %Pred Post %Pred %Chg SPIROMETRY FVC (L) 2.18 2.61 3.53 4.46 61 FEV1 (L) 1.55 1.94 2.70 3.41 57 FEV1/FVC 0.71 0.63 0.77 0.89 92 PEF L/s (L/sec) 6.35 5.15 7.15 9.16 88 FEF50 (L/sec) 1.38 1.04 3.16 5.29 43 FIF50 (L/sec) 1.97 FEF50/FIF50 0.70 90-100 FIVC (L) 2.04 [id number] (L/sec) 0.91 0.90 2.10 3.82 43 Last Pacer Check: NA Labs: Recent Labs 03/04/22 0805 WBC 5.60 HB 12.9* HCT 38.9* PLT 134* INR 1.2 APTT 41.0* PTSEC 12.2 Antibody Screen Date Value Ref Range Status 03/04/2022 Negative Final Urine dip shows: Recent Labs 03/04/22 1009 UGLUC Negative UBILI Negative UKET Negative UHB Negative UPH 6.0 UPROT Negative Impression: This is a 71 year old year-old male, who is being evaluated for surgical intervention of coronary artery disease and mitral insufficiency. In consideration for surgery, the patient's acute and chronic medical issues have been evaluated as documented above and reviewed in the electronic medical record. Plan: Patient will be seen today by the surgeon, Dr. Andrew Ng M.D. . Before surgery the patient will need the following: No further evaluation needed If the patient is a surgical candidate according to criteria met, then advise the following: Bactroban, prescriptions and instructions given., Tests: COVID result from today pending Labs: CMP result from today pending , Anticoagulation instructions: Last ASA & OTC = 02/28. Last Coumadin = 02/28, Last Lovenox dose = 03/04 AM Pre Op Instructions per protocol reviewed and handout given to patient . Patient Education completed and documented. Emotional support provided to patient and family. All questions and concerns addressed. Advanced directives are complete. Patient instructed to have document scanned at J1-1 admitting interview. Anticipated Discharge Needs: CM consult for placement and PT/OT/RT evalulation for anticipated HomeCare needs These findings will be communicated back to the requesting provider electronically. SIGNATURE: Arminda Jack APRN.CNP PAGER: [phone] Date of Service: 03/04/2022 Time of Service: 12:08 PM documented in this encounterVan [facility] History of Present illness Narrative* Clarisse Nicholson RRT - 03/04/2022 10:01 AM EST PULM FUNCTION SMARTBLOCK: Provider: Andrew Ng MD Spirometry: 1 DLCO: 1 documented in this encounterVan [facility]01-[facility] History of Present illness Narrative* Leonor Bradley RT(R) - 03/04/2022 7:45 AM EST Radiology Service Progress Note PATIENT NAME: Sharita Tran DATE OF SERVICE: March 04, 2022 TIME: 7:47 AM PATIENT IDENTITY VERIFICATION COMPLETED USING TWO (2) IDENTIFIERS: Name and Date of confirmedby patient verbally. FALL SCREENING: Has the patient had 2 falls in the last year or 1 fall with injury or currently using an Ambulatory Assistive Device (Walker, Cane, Wheelchair, Crutches, etc.)? No PATIENT GENDER DATA: Male PATIENT RELEVANT IMPLANT DATA REVIEWED: Not Applicable RADIOLOGY DEPARTMENT: General X-ray: Exam(s) Completed: Chest X-Ray PERIPHERAL IV DATA: Not applicable SIGNED BY: RT Nehemias(R) March 04, 2022 7:47 AM documented in this encounterVan [facility]01-24-[facility]23 History of Present illness Narrative* Nicol Carvalho Research Coordinator - 03/03/2022 1:44 PM EST QOL Call Tracking Documentation Follow-Up Type: Phone Call Call Attempt: 1st Attempt Call Status: Complete documented in this [facility]01-24-2023 History of Present illness Narrative* Nicol Carvalho Research Coordinator - 03/03/2022 12:42 PM EST QOL Call Tracking Documentation Follow-Up Type: Phone Call Call Attempt: 2nd Attempt Call Status: Unable to contact patient (I did call Mrs. Tran and she said the her was home sleeping with his hearing aid out. She was out for lunch I ask her to call me back when she couldtotay) documented in this [facility]01-23-2023 Miscellaneous Notes* Telephone Encounter - Debbie Benitez RN - 03/02/2022 3:07 PM EST CARE CONTINUUM ADVISOR ASSESSMENT PRIMARY CARE PHYSICIAN: Syl Ray MD OR Surgery Date: 03/05/22 [facility] Appointment: 03/04/22 Health Insurance: Medicare A&B, MMO Financial Resources: Retired Primary Contact: Extended Emergency Contact Information Primary Emergency Contact: Lana Tran Mobile Relation: Spouse Other Important Patient Contacts: None Patient/Derrick Helper Stated Goals: To improve my functional status and To return home to life as it was [employer] Printing needed?: No Home Phone Primary Contact: NA Cell Phone Primary Contact:NA ADVANCE DIRECTIVES: Does Patient Have Advance Directives? Yes, requested copies for chart Does Patient Have Concerns About Advance Directives? No Education Provided: Yes, will bring SOCIAL: Living Arrangement: Home Lives With: Spouse Stairs: One story home One story apartment one step to go in Do you have any concerns with food and/or affording food?: No Do you have reliable transportation to and from surgery/appointments?: Yes, plan to drive w/spouse and stay at at [facility] Medication Adherence: Do you have any concerns with your prescription medication?: No Who do you use for pharmacy?: [id number] [place] [address] - [address] [facility] [phone] [facility] [phone] Pre-Hospital Baseline Mental Status: Alert & Oriented Informant: Self and Spouse What is your current functional status?: Perform ADLs independently Equipment: Do you currently use any equipment at home for your medical condition or to help you get around? None Active Services/Needs: None Do you have a community mental health worker contact through your insurance or WRAAA?: No Has the Patient Been in a Fpc Facility in the Past 30 days? No FREEDOM OF CHOICE: Level of Care Discussed: Home Care, Fpc Facility, Inpatient Rehab Facility, and CardiacRehab Financial Disclosure Provided: No Financial Disclaimer Provided: Yes, regarding pre-cert / insurance authorization Provider List: Home Care, Rehab Facility, and Fpc Facility Provider list within the patient's requested geographic area shared with the patient/family: Yes - Within [address] [place] [address] Provider Choices Collected Acute Rehab: [facility] Home Health: 1. Home Health Service [facility] 2. [facility] 3. [facility] 4. [facility] Home care Fpc: 1. [facility] 2. [facility] Interventions: Discussed importance of active PCP relationship and follow up Discussed insurance risks, gaps, and programs available Advanced Directives Education Discussed reliable transportation needs for surgery and follow up appointments Discussed prescription medications adherence Debbie Benitez, RN documented in this encounterVan [facility]01-23-2023 History of Present illness Narrative* Nicol Carvalho Research Coordinator - 03/02/2022 12:05 PM EST QOL Call Tracking Documentation Follow-Up Type: Phone Call Call Attempt: 1st Attempt Call Status: Left Message documented in this encounterVan [facility]12-30-2022 Miscellaneous Notes* Telephone Encounter - Alexus Rebolledo RN - 02/06/2022 11:52 AM EST Patient seen in evaluation by Dr. gN who wishes to offer surgery. Spoke with patient and offered surgical date of 03/05. He will be in touch with his local coumadin clinic regarding lovenox bridging pre-operatively.Cardiac Surgery PreOp Checklist Patient Name: Sharita Tran OR Surgery Date: 03/05 [facility] Appt. Date: 03/04 Primary Care Provider: No primary care provider on file. Definition Comments Diabetes/Insulin Pump A1-c and Endo consult (need for pump pt) n/a Hypothyroid/thyroid nodules TSH/US of thyroid if new nodule n/a Stroke (CVA) Neurology consult n/a Dysphagia, stricture w/no recent dilation, Angel's Esophagus GI consult n/a Von Willebrand/thrombocytopenia/ Blood... Hematology consult n/a Abnormal labs from outside Place any necessary consults n/a Cardiac Cath Correct birthday/include all images/moving if outside cath Outside cath completed on 09/15/21. Redo OHS/Robotic surgery/radiation to chest CT or CTA/if outside CT will need in-house CXR, CardiacMRI CT chest completed on 01/21/22. Mechanical valve Admit for Heparin/Lovenox bridge Patient will contact his coumadin clinic re: Lovenox bridging. Female <50 y/o HCG n/a Heparin allergy hx of HIT Vascular Medicine consult n/a Nickel/Metal allergy Dermatology consult n/a Breast implants/Robotic candidates Plastic Surgery consult n/a Urinary strictures Urology consult/Urology consult to OR n/a All stimulators/spinal stimulator Type of stimulator n/a PPM/AICD Device check n/a Valve/TAVR/TEVAR/Myectomy/ascending aorta Dental clearance/Dental Consult at [facility] Patient will see local dentist. CABG surgery with previous CABG/varicose vein/vein stripping Leg vein mapping ordered LMT disease > 30% or Carotid Bruits Carotid ultrasound ordered Descending Aneurysm/TEVAR/TAA Pre-admit/hydration/spinal drain to be placed: IR/OR/Not Needed n/a Dialysis patient IHD day prior to OHS n/a CABG with no ECHO results Discussion w/surgeon results for dental clearance: preop/postop n/a Advanced Directives Instructions given to patient n/a FMLA Forward to AA n/a Test/Consult not needed Communicate in Epic or Access n/a Record of decreased PFTs, known lung disease Any pulmonary consult n/a Pulmonary embolectomy Needs US/Duplex BLE, VQ scan RHC, possible LHC, Pulmonary and/or Vascular consult n/a Abnormal CT All>1cm if further workup/consult needed n/a CC-Bio Repostitory Notification of packet and general knowledge given to pt n/a documented in this encounterVan [facility]12-14-2022 History and physical note * Andrew Ng MD - 01/21/2022 5:00 PM EST Images from the original note were not included. [facility] DEPARTMENT OF CARDIAC SURGERY OUTPATIENT VISIT DATE January 21, 2022 OUTPATIENT VISIT PCP: To use this Smartlink, specify the provider ID whose address you want to display, e.g., .PROVADDR[1(where 1 is the provider ID). Referring Physician: Nikolay Lockwood MD [address]@ [address] [place] [id number] Patient Type: New Visit to Determine Surgery: Yes HPI: Mr. Sharita Tran is a pleasant 71 year old male seen regarding candidacy for redo cardiac surgery. He has also been seen by Dr. Luis Tabor of [facility] Cardiology. Mr. Tran has undergone two previous cardiac surgeries at [facility]- 12/2008 AV repair and 2010 AVR with a 25 On-X (reportedly). He was diagnosed with PAF in 2019 (on warfarin) and has been found to havesevere MR. Local cath revbealed 90% mid LAD. Referred for surgical consideration. He walks about 1.5 miles daily and reports that he feels well. No angina or KEATING. Comorbidities include HPL. I have personally reviewed and analyzed all records that pertain to the patient's prior course in addition to the following studies: Last CT Result Conclusion CT CHEST CARDIAC WO IVCON Exam End: 01/21/2022 10:31 AM (Final result) Impression: IMPRESSION: 1. S/P bileaflet mechanical aortic replacement in stable position. The thoracic aorta is normal in course, caliber, and has mild atherosclerotic changes. There is no definite acute aortic pathology. 2. Proximity of the cardiovascular structures to the sternum: left brachiocephalic vein 5 mm, right ventricle immediately behind. 3. Severe coronary calcifications identified, though this study was not optimized for coronary artery evaluation. 4. Severe left and mild right atrial dilation. 5. Moderate pericardial calcifications lateral to the left ventricle. Marking Machine Operator: FELA Transcribe Date/Time: Jan 21 2022 11:45A Dictated by : JASSI FREEDMAN MD This examination was interpreted and the report reviewed and electronically signed by: JASSI FREEDMAN MD on Jan 21 2022 12:39PM EST Last ECHO Result Conclusion ECHO Collected: 01/21/2022 10:52 AM (Edited Result - FINAL) Impression: CONCLUSIONS: - Exam indication: Initial evaluation valvular heart disease - The left ventricle is mildly dilated. Left ventricular systolic function is mildly decreased. EF = 50 5% (2D biplane) Left ventricular diastolic function was not evaluated due to >2+ MR and AF. LBBB. - The right ventricle is normal in size. Right ventricular systolic function is mildly decreased. - The left atrial cavity is severely dilated. - The right atrial cavity is mildly dilated. 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 Regurgitant orifice area (PISA) is 0.91 cm . Anterior > posterior leaflet prolapse with posteriorly directed MR. - Mechanical prosthetic aortic valve. There is trace aortic valve regurgitation. The peak gradient is 10 mmHg and the mean gradient is 5 mmHg. - Estimated right ventricular systolic pressure is 37 mmHg consistent with mild pulmonary hypertension. Estimated right atrial pressure is 3 mmHg based on IVC assessment. - The patient has not had a prior CC echocardiographic exam for comparison. * * * Final (Updated) * * * OS CARDIAC CATHETERIZATION 09/15/2021: OSH BENITO 09/15/2021: Impression/Plan: Pleasant 71 yo male s/p AV repair 2008 and redo AVR 12/2008 (25 On-X). Now with severe MR with posterior leaflet restriction and anterior leaflet overide/flail. No symptoms but has low normal LVEF of50% (low for severe MR) with mild LV dilatation and mild RV dysfunction. Also has 90% mid LAD. Withmultiple MR jets, I don't think that a clip would help. He is strong and robust. Surgery seems likebest option. Some ascending aorta calcification. May be prudent to cannulate right axillary (OR decision) but ascending likely safely clampable distally. Severe LAE may prove beneficial for MV exposure, although exchange of AV could be needed. Given lack of symptoms, he could wait with follow up echo but he does have the aforementioned cardiac changes. Discussed option of surgery versus expectant management. He will consider options. The risks, benefits and anticipated outcomes of the procedure, the risks and benefits of the alternatives to the procedure, and the roles and tasks of the personnel to be involved, were discussed with the patient, and the patient consents to the procedure and agrees to proceed. We discussed the possibility that there could be two patients undergoing surgery in two separate rooms (concurrent surgery) and that I would be present for the critical components of all operations. We also discussed that in an emergency situation, a qualified backup surgeon is available and in the rare event of such aserious situation, that colleague might take over the operation. These findings will be communicated back to the requesting physician via dictated letter. Andrew Ng MD Time = 40 minutes with > 50% counseling. documented in this encounterVan Wert [facility]12-14-2022 History of Present illness Narrative* RT Venkata(R) - 01/21/2022 8:45 AM EST Radiology Service Progress Note PATIENT NAME: Sharita Tran DATE OF SERVICE: January 21, 2022 TIME: 10:29 AM PATIENT IDENTITY VERIFICATION COMPLETED USING TWO (2) IDENTIFIERS: Name and Date of confirmedby patient verbally and Name and Date of confirmed by identification band. FALL SCREENING: Has the patient had 2 falls in the last year or 1 fall with injury or currently using an Ambulatory Assistive Device (Walker, Cane, Wheelchair, Crutches, etc.)? No PATIENT GENDER DATA: Male PATIENT RELEVANT IMPLANT DATA REVIEWED: Yes RADIOLOGY DEPARTMENT: CT; Exam(s) Completed: Chest PERIPHERAL IV DATA: Not applicable SIGNED BY: RT Venkata(R) January 21, 2022 10:29 AM documented in this encounterVan [facility]ert [facility]12-06-2022 Miscellaneous Notes* Telephone Encounter - Dalia Valdes - 01/13/2022 9:[address] Ng has reviewed the available records and is offering an evaluation with additional testing. Spoke with patient and he would like to proceed. Reviewed anticipated appointments. Patient verbalized understanding of all above. Dalia Valdes RN documented in this encounterVan [facility]ert [facility]11-02-2022 Miscellaneous Notes* Telephone Encounter - Jenna Senior - 12/10/2021 2:56 PM EDT IN documented in this encounterVan Wert [facility]10-28-2022 Miscellaneous Notes* Telephone Encounter - Leonor Verma RN - 12/05/2021 12:21 PM EDT Pt will be sending records for TMVR review. He may also need a stent. documented in this encounterVan [facility]ert [facility]08-08-2022 Discharge summary Date of Service 09/15/2021 Discharge Diagnosis Severe mitral regurgitation Cardiomyopathy (LVEF 35 to 40%) History of aortic aneurysm repair (2008) History of mechanical aortic valve replacement Atrial fibrillation (Coumadin) Hyperlipidemia Coronary artery disease Hospital Course Sharita Tran is a 71-year-old male with a significant past medical history of aortic aneurysm s/p repair (2008), aortic insufficiency s/p aortic valve replacement (1986 with a repeat mechanical valve On-X 2008), paroxysmal atrial fibrillation (Coumadin), cardiomyopathy (LVEF 35 to 40%), HLD, and severe mitral regurgitation who presents for an elective cardiac catheterization as part of work-up for potential MitraClip versus mitral valve repair/replacement. Cardiac catheterization revealed 90% mid LAD lesion. Cardiothoracic surgery colleagues consulted for further assistance in management and evaluation for mitral valve repair/replacement and revascularization of LAD. Pt is stable for discharge from a cardiac standpoint. Plan explained to patient and he expresses understanding. All questions, comments, and concerns addressed. Allergies ampicillin (RASH, ITCHING) lisinopril (cough) penicillin (rash/itching) Consults Consult to Physician - Ordered -- 09/15/21 15:54:00 EDT, JOSE D MARIE MD, Routine, mitral valve repair/replacement evaluation and mid LAD lesion. Imaging Results and Diagnostics I have reviewed all available EKGs, echocardiograms, stress test and cardiac catheterizations. Relevant laboratory data have also been reviewed. Objective Vitals and Measurements T: 36.7 C (Oral) HR: 80 RR: 16 BP: 108/60 SpO2: 94% HT: 167.64 cm WT: 72.3 kg BMI: 25.73 BMI: 25.73 Weight Dosing Weight: 72.3 kg (09/15/21) Dosing Weight: 72.3 kg (09/15/21) Pending Labs and Studies None Code Status No qualifying data available. Admission Date 09/15/2021 Discharge Date 09/15/2021 Medications Unchanged acetaminophen (Tylenol Extra Strength 500 mg oral tablet)1 tab(s) by mouth every 4 hours as needed as needed for pain. aspirin (aspirin 81 mg oral delayed release tablet)1 tab(s) by mouth every day. busPIRone (busPIRone 10 mg oral tablet)1 tab(s) by mouth two (2) times a day. carvedilol (carvedilol 6.25 mg oral tablet)0.5 tab(s) by mouth twice daily with meals. cholecalciferol (cholecalciferol 1000 intl units (25 mcg) oral capsule)2 cap by mouth every day. citalopram (citalopram 20 mg oral tablet)1 tab(s) by mouth every day. cyanocobalamin (cyanocobalamin 100 mcg oral tablet)1 tab(s) by mouth once a day. enoxaparin (Lovenox 80 mg/0.8 mL injectable solution)0.7 Milliliter Subcutaneous every 12 hours for7 Days. furosemide (furosemide 40 mg oral tablet)1 tab(s) by mouth two (2) times a day. Refills: 3. losartan (losartan 25 mg oral tablet)0.5 tab(s) by mouth once a day. Refills: 3. metOLazone (metOLazone 2.5 mg oral tablet)1 tab(s) by mouth every day. Refills: 3. multivitamin (Multiple Vitamins oral capsule)1 cap by mouth every day. potassium chloride (potassium chloride 20 mEq oral tablet, extended release)1 tab(s) by mouth four (4) times a day. Take with food.. pravastatin (pravastatin 80 mg oral tablet)1 tab(s) by mouth daily at bedtime. tamsulosin (tamsulosin 0.4 mg oral capsule)1 cap by mouth daily at bedtime. warfarin (warfarin 2.5 mg oral tablet)1 tab(s) by mouth every day. Follow Up Follow Up with NIKOLAY LOCKWOOD MD When 10/24/2021 10:45 AM EDT [facility] [address] [facility] [address] [place] [address]- Follow Up Appointments No qualifying data available. Follow Up Labs/Studies Discharge Labs No Follow-up Labs Discharge Studies No Follow-up Studies Discharge Diet No qualifying data available. Discharge Activity Discharge Activity - Ordered -- Lifting Restricted less than 10 pounds, FOR 1 WEEK, 09/15/21 15:52:00 EDT Condition on Discharge Stable Readmission Risk/Palliative Score No qualifying data available. Discharge Disposition Home Information Provided To Patient Digitally Signed by LILO WAGNER DO on 09/15/2021 04:[address] [id number] History and physical note Date of Service 09/15/2021 Chief Complaint Cardiomyopathy History of Present Illness Sharita Burrell is a 71-year-old male with a significant past medical history of aortic aneurysm s/p repair (2008), aortic insufficiency s/p aortic valve replacement (1986 with a repeat mechanical valve On-X 2008), paroxysmal atrial fibrillation (Coumadin), cardiomyopathy (LVEF 35 to 40%), HLD, and severe mitral regurgitation who presents for an elective cardiac catheterization as part of work-up for potential MitraClip. Patient seen and examined at bedside. He is currently hemodynamically stable in no acute distress. At this time patient has no cardiopulmonary complaints. Review of Systems A thorough 14 point review of system was done, and is negative except for what was listed above in the HPI section Physical Exam Vitals and Measurements T: 36.7 C (Oral) HR: 80 RR: 16 BP: 108/60 SpO2: 94% HT: 167.64 cm WT: 72.3 kg BMI: 25.73 BMI: 25.73 Weight Dosing Weight: 72.3 kg (09/15/21) Dosing Weight: 72.3 kg (09/15/21) Lab Results 09/15 12:22 Protime: 12.8 PT International Ratio: 1.1 Imaging Results and Diagnostics I have reviewed all available EKGs, echocardiograms, stress test and cardiac catheterizations. Relevant laboratory data have also been reviewed. EKG I have reviewed all available EKGs, echocardiograms, stress test and cardiac catheterizations. Relevant laboratory data have also been reviewed. Assessment/Plan Impression: Severe mitral regurgitation Cardiomyopathy (LVEF 35 to 40%) History of aortic aneurysm repair (2008) History of mechanical aortic valve replacement Atrial fibrillation (Coumadin) Hyperlipidemia Plan: We will proceed with transesophageal echocardiogram for better visualization of mitral valve regurgitation. We will also proceed with cardiac catheterization to assess for obstructive coronary arterydisease as part of MitraClip evaluation. Plan discussed with patient. All questions, comments, and concerns addressed. Assessment and plan was discussed with Dr. Mcarthur. Any changes in assessment/plan, will be added as an addendum to this note by the attending physician. This note was transcribed via voice recognition software. Please forgive any errors or typos resulting from the use of this technology. Lilo Wagner DO, MS Health Physicist (PGY-5) Pager [phone]/ Cortext Problem List/Past Medical History Ongoing AORTIC VALVE STENOSIS/INSUFFICIENCY (Renamed from AORTIC VALVE DEFECT) Cardiomyopathy Carotid artery disease DIZZINESS H/O mechanical aortic valve replacement HFrEF (heart failure with reduced ejection fraction) HYPERLIPIDEMIA, UNSPECIFIED HYPERLIPIDEMIA TYPE INCREASED BMI KIDNEY STONE LBBB (left bundle branch block) LEFT VENTRICULAR DYSFUNCTION LICE by Dr. Gooden Mitral regurgitation Obesity Paroxysmal atrial fibrillation Postural dizziness with presyncope STENOSIS OF LEFT CAROTID ARTERY Historical No qualifying data Procedure/Surgical History Cardiac catheterization: 09/15/21 Echocardiogram: 07/23/20 Echocardiogram: 12/01/18 Echocardiogram: 09/24/16 Cardiovascular stress testin11/26/10 EKG findin Hernia: 10/24/09 Carotid endarterectomy: 06/28/09 Carotid artery: 05/29/09 AVR - Aortic valve replacement: 12/31/08 MUGA scan: 2008 History of repair of ascending aorta: 2008 Cardiac catheterization: 2008 MUGA scan: 2007 Medications Home Medications (16) Active aspirin 81 mg oral delayed release tablet 81 mg = 1 tab(s), Oral, Daily busPIRone 10 mg oral tablet 10 mg = 1 tab(s), Oral, BID carvedilol 6.25 mg oral tablet 3.125 mg = 0.5 tab(s), Oral, BIDM cholecalciferol 1000 intl units (25 mcg) oral capsule 2,000 International_Unit = 2 cap(s), Oral, Daily citalopram 20 mg oral tablet 20 mg = 1 tab(s), Oral, Daily cyanocobalamin 100 mcg oral tablet 100 mcg = 1 tab(s), Oral, qDay furosemide 40 mg oral tablet 40 mg = 1 tab(s), Oral, BID losartan 25 mg oral tablet 12.5 mg = 0.5 tab(s), Oral, qDay Lovenox 80 mg/0.8 mL injectable solution 70 mg = 0.7 mL, Subcutaneous, q12h metOLazone 2.5 mg oral tablet 2.5 mg = 1 tab(s), Oral, Daily Multiple Vitamins oral capsule 1 cap(s), Oral, Daily potassium chloride 20 mEq oral tablet, extended release 20 mEq = 1 tab(s), Oral, QID pravastatin 80 mg oral tablet 80 mg = 1 tab(s), Oral, qHS tamsulosin 0.4 mg oral capsule 0.4 mg = 1 cap(s), Oral, qHS Tylenol Extra Strength 500 mg oral tablet 500 mg = 1 tab(s), PRN, Oral, q4h warfarin 2.5 mg oral tablet 2.5 mg = 1 tab(s), Oral, Daily Allergies ampicillin (RASH, ITCHING) lisinopril (cough) penicillin (rash/itching) Social History Smoking Status - 10/28/2009 Patient is non-smoker Alcohol Use: Past., 04/01/2020 Use: Current. Frequency: 1-2 times per year., 03/12/2020 Nutrition/Health Caffeine intake amount: occasionally., 04/01/2020 Substance Abuse Use: Never., 04/01/2020 Tobacco Nicotine Use: Never (less than 100 in lifetime)., 03/12/2020 Family History Cancer: Father. Colon cancer: Mother. Immunizations No qualifying data available. Code Status No qualifying data available. Digitally Signed by LILO WAGNER DO on 09/15/2021 02:[address] [id number] Discharge instructions Patient Education 09/15/2021 17:32:36 3- Heart Cath/PCI radial (11/2017) (CUSTOM) HEART CATHETERIZATION/PCI (radial) Discharge Instructions DIET Drink plenty of fluids for the next 48 hours to help your kidneys flush the heart cath dye out of your system ACTIVITY For the next 48 hours: Do not deep bend the wrist Do not use the hand/arm to support your weight when rising from a chair or bed Do not drive For the next 5 days: Do not lift, push, or pull anything over 5 pounds For the next 7 days: Do not submerse your procedure site in water Do not swim, wash dishes, or take tub baths You may write, eat, type, and shower WOUND CARE You will go home with a dressing on your site. Remove dressing tomorrow, shower, and apply Band-Aid. Keep a Band-Aid on your procedure site for the next 3-4 days Change the Band-Aid daily or if it gets wet/soiled AFTER YOU GO HOME, CALL YOUR DOCTOR FOR: Any increase in bruising or tenderness from the procedure site Any redness, pus, or other signs of infection at the site A temperature above 100.5 Severe pain at the site DIAL 911 AND RETURN TO THE HOSPITAL FOR: Any bleeding from the procedure site. The site may be bruised or tender, but it should not be bleeding at any time. If your site begins to bleed, hold firm pressure on it and dial 911 to return to the hospital Any increase in swelling at the procedure site. An increase in swelling could mean the area is bleeding under the skin. Hold firm pressure to the site and dial 911 to return to the hospital Document Released: 01/25/2006 Document Revised: 01/11/2013 Document Reviewed: 01/26/2014 ExitCare Patient Information 2015 Common Curriculum. This information is not intended to replace advicegiven to you by your health care provider. Make sure you discuss any questions you have with your health care provider. 09/15/2021 14:41:30 Moderate Conscious Sedation, Adult, Care After Moderate Conscious Sedation, Adult, Care After These instructions provide you with information about caring for yourself after your procedure. Your health care provider may also give you more specific instructions. Your treatment has been plannedaccording to current medical practices, but problems sometimes occur. Call your health care provider if you have any problems or questions after your procedure. What can I expect after the procedure? After your procedure, it is common: To feel sleepy for several hours. To feel clumsy and have poor balance for several hours. To have poor judgment for several hours. To vomit if you eat too soon. Follow these instructions at home: For at least 24 hours after the procedure: Do not: ?Participate in activities where you could fall or become injured. ?Drive. ?Use heavy machinery. ?Drink alcohol. ?Take sleeping pills or medicines that cause drowsiness. ?Make important decisions or sign legal documents. ?Take care of children on your own. Rest. Eating and drinking Follow the diet recommended by your health care provider. If you vomit: ?Drink water, juice, or soup when you can drink without vomiting. ?Make sure you have little or no nausea before eating solid foods. General instructions Have a responsible adult stay with you until you are awake and alert. Take rizp-qby-ntfryfb and prescription medicines only as told by your health care provider. If you smoke, do not smoke without supervision. Keep all follow-up visits as told by your health care provider. This is important. Contact a health care provider if: You keep feeling nauseous or you keep vomiting. You feel light-headed. You develop a rash. You have a fever. Get help right away if: You have trouble breathing. This information is not intended to replace advice given to you by your health care provider. Make sure you discuss any questions you have with your health care provider. Document Released: 11/15/2013 Document Revised: 01/07/2018 Document Reviewed: 05/16/2016 [employer] Patient Education [address]. Follow Up Care 09/03/2021 10:12:26 With:JOSE D MARIE MD, Thoracic Service, Vascular Service Address: [address] [place] [address] [address] [facility] [address] [facility] [place] [address]- [phone] When: Unknown Comments:The office will be calling you to schedule your appointment.Schedule dental clearance.Please fax all discussed test results to: [phone] With:NIKOLAY LOCKWOOD MD Address: [address] [place] [address] [address] [place] [address]- When:10/24/2021 10:45:00 [facility] 08-08-2022 Summary of episode note Discharge Instructions Thank you for allowing [facility] to assist you with your healthcare needs. The following is importantdischarge information regarding your hospital visit. Your Care Team SYL THURMAN DO Your Diagnosis Coronary artery disease Mitral regurgitation Paroxysmal atrial fibrillation Cardiomyopathy Carotid artery disease H/O mechanical aortic valve replacement HFrEF (heart failure with reduced ejection fraction) HYPERLIPIDEMIA, UNSPECIFIED HYPERLIPIDEMIA TYPE What to do next Scheduled Follow-Up Appointments Appointment Type When Where Contact InformationCV OV 10/24/2021 10:45 AM EDT [facility] Follow Up Appointments Follow Up with NIKOLAY LOCKWOOD MD When 10/24/2021 10:45 AM EDT Where: [address] [facility] [place] [place] [address]- Follow Up with JOSE D MARIE MD, Thoracic Service, Vascular Service When Why: The office will be calling you to schedule your appointment. Schedule dental clearance. Please fax all discussed test results to: [phone] Where: [address] [place] [address] [facility] [place] [address]- [phone] The Following Activity and Diet Have Been Ordered for You Discharge Activity - Ordered -- Lifting Restricted less than 10 pounds, FOR 1 WEEK, 09/15/21 15:52:00 EDT No qualifying data available. Allergies ampicillin (RASH, ITCHING) lisinopril (cough) penicillin (rash/itching) Medications Please ask your primary doctor or pharmacist before taking any other medication not listed, including over the counter drugs, herbal medications, vitamins and or supplements as they may interact withyour home medications. What How Much When Instructions Last Dose Unchanged acetaminophen (Tylenol Extra Strength 500 mg oral tablet) 1 tab(s) by mouth Every 4 hours as needed for as needed for pain Unchanged aspirin (aspirin 81 mg oral delayed release tablet) 1 tab(s) by mouth Every day Unchanged busPIRone (busPIRone 10 mg oral tablet) 1 tab(s) by mouth Two (2) times a day Unchanged carvedilol (carvedilol 6.25 mg oral tablet) 0.5 tab(s) by mouth Twice daily with meals Unchanged cholecalciferol (cholecalciferol 1000 intl units (25 mcg) oral capsule) 2 cap by mouth Every day Unchanged citalopram (citalopram 20 mg oral tablet) 1 tab(s) by mouth Every day Unchanged cyanocobalamin (cyanocobalamin 100 mcg oral tablet) 1 tab(s) by mouth Once a day Unchanged enoxaparin (Lovenox 80 mg/ 0.8 mL injectable solution) 0.7 Milliliter Subcutaneous Every 12 hours Duration: 7 Days Unchanged furosemide (furosemide 40 mg oral tablet) 1 tab(s) by mouth Two (2) times a day Unchanged losartan (losartan 25 mg oral tablet) 0.5 tab(s) by mouth Once a day Unchanged metOLazone (metOLazone 2.5 mg oral tablet) 1 tab(s) by mouth Every day Unchanged multivitamin (Multiple Vitamins oral capsule) 1 cap by mouth Every day Unchanged potassium chloride (potassium chloride 20 mEq oral tablet, extended release) 1 tab(s) by mouth Four (4) times a day Take with food. Unchanged pravastatin (pravastatin 80 mg oral tablet) 1 tab(s) by mouth Daily at bedtime Unchanged tamsulosin (tamsulosin 0.4 mg oral capsule) 1 cap by mouth Daily at bedtime Unchanged warfarin (warfarin 2.5 mg oral tablet) 1 tab(s) by mouth Every day Please take this list to your next doctor s visit. Bring all medications you take, including over the counter medications, herbals and other supplements with you to your doctor s visit. Patients and families are reminded to discard old lists and to update any records with all medication providers or retail pharmacies. Education Materials HEART CATHETERIZATION/PCI (radial) Discharge Instructions DIET Drink plenty of fluids for the next 48 hours to help your kidneys flush the heart cath dye out of your system ACTIVITY For the next 48 hours: Do not deep bend the wrist Do not use the hand/arm to support your weight when rising from a chair or bed Do not drive For the next 5 days: Do not lift, push, or pull anything over 5 pounds For the next 7 days: Do not submerse your procedure site in water Do not swim, wash dishes, or take tub baths You may write, eat, type, and shower WOUND CARE You will go home with a dressing on your site. Remove dressing tomorrow, shower, and apply Band-Aid. Keep a Band-Aid on your procedure site for the next 3-4 days Change the Band-Aid daily or if it gets wet/soiled AFTER YOU GO HOME, CALL YOUR DOCTOR FOR: Any increase in bruising or tenderness from the procedure site Any redness, pus, or other signs of infection at the site A temperature above 100.5 Severe pain at the site DIAL 911 AND RETURN TO THE HOSPITAL FOR: Any bleeding from the procedure site. The site may be bruised or tender, but it should not be bleeding at any time. If your site begins to bleed, hold firm pressure on it and dial 911 to return to the hospital Any increase in swelling at the procedure site. An increase in swelling could mean the area is bleeding under the skin. Hold firm pressure to the site and dial 911 to return to the hospital Document Released: 01/25/2006 Document Revised: 01/11/2013 Document Reviewed: 01/26/2014 [facility] Patient Information 2015 Common Curriculum. This information is not intended to replace advicegiven to you by your health care provider. Make sure you discuss any questions you have with your health care provider. Moderate Conscious Sedation, Adult, Care After These instructions provide you with information about caring for yourself after your procedure. Your health care provider may also give you more specific instructions. Your treatment has been plannedaccording to current medical practices, but problems sometimes occur. Call your health care provider if you have any problems or questions after your procedure. What can I expect after the procedure? After your procedure, it is common: To feel sleepy for several hours. To feel clumsy and have poor balance for several hours. To have poor judgment for several hours. To vomit if you eat too soon. Follow these instructions at home: For at least 24 hours after the procedure: Do not: ? Participate in activities where you could fall or become injured. ? Drive. ? Use heavy machinery. ? Drink alcohol. ? Take sleeping pills or medicines that cause drowsiness. ? Make important decisions or sign legal documents. ? Take care of children on your own. Rest. Eating and drinking Follow the diet recommended by your health care provider. If you vomit: ? Drink water, juice, or soup when you can drink without vomiting. ? Make sure you have little or no nausea before eating solid foods. General instructions Have a responsible adult stay with you until you are awake and alert. Take ghjg-fux-gsolhqo and prescription medicines only as told by your health care provider. If you smoke, do not smoke without supervision. Keep all follow-up visits as told by your health care provider. This is important. Contact a health care provider if: You keep feeling nauseous or you keep vomiting. You feel light-headed. You develop a rash. You have a fever. Get help right away if: You have trouble breathing. This information is not intended to replace advice given to you by your health care provider. Make sure you discuss any questions you have with your health care provider. Document Released: 11/15/2013 Document Revised: 01/07/2018 Document Reviewed: 05/16/2016 Elsevier Patient Education [address] [employer]. Additional Information VACCINATE! IT SAVES LIVES! Members of the community who have not yet received the COVID-19 vaccine and would like to receive it can visit one of [facility] vaccine clinics. There are many vaccine clinic locations within the [facility]. For locations and available times, please visit [email or web address] It is important to note that some COVID mobile vaccine clinics are held outdoors and may be canceled in rainy or stormy conditions. To learn more about pediatric vaccinations (ages 5-11), we invite you to visit the [facility] webpage. [email or web address] learn more about the COVID-19 vaccine, we invite you to visit the [facility] website for a list of frequently asked questions. [email or web address] [facility] Patient Portal Access Instructions: Stay connected with your healthcare team and access your personal medical information anytime with the [facility] [facility] Patient Portal.If you would like a full copy of your medical records, please contact the [facility] Medical Records Department, Wednesday through Wednesday between 8a.m. and 4:30p.m. Please follow the directions below to access the portal: 1.Access the email account you provided upon registration to the hospital.2.Look for an invitation email from [facility].3.Open the email and access the invitation link: Accept Invitation to [facility]4.Fill in the required nieves to create your account. Sign into [email or web address] with your username and password that you created in the above steps to stay up to date. You can then view a summary of results, a summary of your visits, and the ability to download your summaries to your computer or send the information securely to a physician. Remember that your healthcare information is confidential, so carefully consider who you will allow to register on the [employer] Patient Portal for access to your information. You can also access the [facility] Patient Portal on the [employer] gaudencio. Simply click on Health Records under [email or web address] and then click on the [facility] logo. HOW TO SAFELY DISPOSE OF PRESCRIPTION MEDICATIONS Please use one of the following methods to safely dispose of your unused medications. 1.Use a drug disposal kit: the drug disposal pouch allows you to safely discard your old and unuseddrugs. Ask your nurse to give you one when you are discharged.2.Visit a local take-back location: Many local pharmacies and police departments have programs that collect old and unwanted prescriptiondrugs. Call your local pharmacy or go to http://1Mind.Blogic/7G5Jw3d to find one close to you.3.Make use of household items: Use cat litter or old coffee grounds to dispose medications if other options arenot available. Mix your drugs with these household products, seal them in an airtight container andthrow it into the garbage. Call [facility]: [phone] to be sure your drugs can be disposed of in this way. Some medicines may require a different approach.4.Never flush your medications down the toilet. IF YOU HAVE BEEN PRESCRIBED AN OPIOID FOR PAIN If you have been prescribed an opioid (such as hydrocodone, oxycodone or morphine), it is critical to understand the possible side effects and risks of opioid pain medications. Even when taken as directed, opioids can have several side effects including: Tolerance, meaning you might need to take more of a medication for the same pain relief. Nausea, vomiting and/or constipation. Sleepiness, dizziness, dry mouth, confusion, depression or itching. Physical dependence, meaning you have withdrawal symptoms when a medication is stopped, can develop within a few days. KNOW YOUR RESPONSIBILITIES It is important to know exactly how much and how often to take the opioid pain medications you are prescribed. Never take opioids in higher amounts or more often than prescribed. Do not combine opioids with alcohol or other drugs that cause drowsiness, such as benzodiazepines, also known as benzos, including diazepam and alprazolam, muscle relaxants or sleep aids. Never sell or share prescription opioids. This is illegal. Store opioids in a secure place and out of reach of others (including children, family, friends and visitors). The last page of this document has been signed and retained as a CHART COPY. Signatures Patient Education Materials 3- Heart Cath/PCI radial (11/2017) (CUSTOM) Moderate Conscious Sedation, Adult, Care After Medication Leaflets My discharge plan and instructions have been reviewed and explained to me and I,SHARITA TRAN understand my current condition and have read and understand these discharge instructions. I have received a written copy of the plan/instructions. If I have questions, I am aware that I should contact my doctor. Patient/Derrick Helper Signature: Date/Time: Relationship to Patient: Witness Name/Signature: [id number] Cardiothoracic surgery Consult note Date of Service 09/15/2021 This is a shared split visit with Dr. Marie Reason for Consultation Mitral valve regurgitation, LAD lesion Referring Physician Dr. Mcarthur History of Present Illness This is a 71-year-old male with a past medical history of aortic valve disease with aortic valve replacement in 1986, aortic aneurysm with repair in [place] valve insertion in 2008 on Coumadin, recent mitral regurgitation diagnosis per echocardiogram done at the [place] [facility], atrial fibrillation, CHF, hyperlipidemia, carotid disease status post LICE, PVD, history of cellulitis of the lower extremities, depression, arthritis of the hands. He was seen in cardiology's office for an abnormal echo which was done at the [place] clinic in July.The echo showed moderate systolic dysfunction with ejection fraction of 35 to 40%, anterior mitral leaflet prolapse with eccentric MR likely severe. This represents significant change in MR severity compared to prior echo in 2020. He was admitted today for a BENITO and cardiac catheterization, both were done, dictated report not available at this time. Consult placed for mitral valve repair/replacement evaluation and mid LAD lesion. Patient has had 2 prior sternotomies. No diagnostic work-up has been ordered at this time. Further surgical plans per Dr. Marie. STS risk evaluation:Risk of Mortality:5.403%,Renal Failure:2.241%,Permanent Stroke:1.407%,ProlongedVentilation:15.540%,DSW Infection:0.204%,Reoperation:4.977%,Morbidity or Mortality:18.973%,Short Length of Stay: 21.289%,Long Length of Stay:8.571% Review of Systems Constitutional: Patient denies fever, chills, weight loss, weight gain, fatigue or appetite change HEENT: Patient has his own teeth and has not seen a dentist recently, has diplopia and ptosis of the left eye. He denies any tinnitus, epistaxis or dysphagia Respiratory: Patient has a productive cough in the morning of white mucus. He denies any shortness of breath CV: Patient has a heart murmur, irregular heartbeat. He denies chest pain, palpitations, syncope, PND, orthopnea, peripheral edema Vascular: Patient denies varicose veins, nonhealing ulcers or DVT GI: Patient denies nausea, vomiting, constipation, diarrhea : Patient has nocturia. He denies any dysuria or incontinence Neuro: Patient denies seizures, tremors Endo: Patient denies any cold heat intolerance Hematology/oncology: Patient bruises easily, denies any problems with bleeding Muscular/skeletal: Patient denies any chronic back pain Psych: Patient has history of depression Physical Exam Vitals and Measurements T: 36.7 C (Oral) HR: 68 RR: 16 BP: 98/61 SpO2: 94% HT: 167.64 cm WT: 72.3 kg BMI: 25.73 BMI: 25.73 Weight Dosing Weight: 72.3 kg (09/15/21) Dosing Weight: 72.3 kg (09/15/21) Mentation: Patient alert, oriented, appropriate HEENT: PERRLA, uvula midline, patient has own teeth in fair to poor dentition, no carotid bruits, trachea midline, hearing intact Heart: Slightly irregular rate and rhythm, S1-S2, positive murmur, diastolic in origin, systolic click Lungs: Clear bilaterally Abdomen: Obese, soft, positive bowel sounds, no mass, no bruit : No CVA tenderness Extremities: No varicose veins, normal capillary refill, trace edema, DP palpable bilaterally Neuro: Cranial nerves II through XII intact Bilateral upper and lower extremity with equal strength Skin: No rashes, no lower extremity leg wounds Lab Results 09/15 12:22 Protime: 12.8 PT International Ratio: 1.1 Labs done on 09/04/2021: Glucose 109, sodium 136, potassium 3.5, BUN 31, creatinine 1.07 WBC 7.9, hemoglobin 13.2, hematocrit 37.9, platelets 195 Imaging Results and Diagnostics BENITO and cardiac catheterization report pending as procedures were done on 09/15/2021 Assessment/Plan 1. Coronary artery disease LAD lesion per heart catheterization today 2. Mitral regurgitation Recent diagnosis, BENITO done today 3. Paroxysmal atrial fibrillation Atrial fib per EKG, on Coumadin 4. Cardiomyopathy Ejection fraction 35% 5. Carotid artery disease Status post left carotid endarterectomy 6. H/O mechanical aortic valve replacement AVR in 1986, aortic aneurysm repair and Tomer valve in 2008, on Coumadin at home 7. HFrEF (heart failure with reduced ejection fraction) 8. HYPERLIPIDEMIA, UNSPECIFIED HYPERLIPIDEMIA TYPE On atorvastatin Plan: Patient instructed to see his dentist in [place] for full dental evaluation, report to be faxed to Dr. Marie's office Patient had carotid studies done earlier this year at the [place] and he will call them to have report faxed to Dr. Marie Patient will need hemoglobin A1c, urinalysis, CBC, CMP Vein mapping, radial studies, palmar arch studies PA and lateral chest x-ray Possible need for CT of the chest Time spent: 45 minutes Problem List/Past Medical History Ongoing AORTIC VALVE STENOSIS/INSUFFICIENCY (Renamed from AORTIC VALVE DEFECT) Cardiomyopathy Carotid artery disease DIZZINESS H/O mechanical aortic valve replacement HFrEF (heart failure with reduced ejection fraction) HYPERLIPIDEMIA, UNSPECIFIED HYPERLIPIDEMIA TYPE INCREASED BMI KIDNEY STONE LBBB (left bundle branch block) LEFT VENTRICULAR DYSFUNCTION LICE by Dr. Gooden Mitral regurgitation Obesity Paroxysmal atrial fibrillation Postural dizziness with presyncope STENOSIS OF LEFT CAROTID ARTERY Historical No qualifying data Procedure/Surgical History Cardiac catheterization: 09/15/21 Echocardiogram: 07/23/20 Echocardiogram: 12/01/18 Echocardiogram: 09/24/16 Cardiovascular stress testin11/26/10 EKG findin Hernia: 10/24/09 Carotid endarterectomy: 06/28/09 Carotid artery: 05/29/09 AVR - Aortic valve replacement: 12/31/08 MUGA scan: 2008 History of repair of ascending aorta: 2008 Cardiac catheterization: 2008 MUGA scan: 2007 Medications Inpatient NO METFORMIN (Glucophage) X 48hrs-patient has received contrast, 1 EA, Miscellaneous, Unscheduled Home aspirin 81 mg oral delayed release tablet, 81 mg= 1 tab(s), Oral, Daily busPIRone 10 mg oral tablet, 10 mg= 1 tab(s), Oral, BID carvedilol 6.25 mg oral tablet, 3.125 mg= 0.5 tab(s), Oral, BIDM cholecalciferol 1000 intl units (25 mcg) oral capsule, 2000 International_Unit= 2 cap(s), Oral, Daily citalopram 20 mg oral tablet, 20 mg= 1 tab(s), Oral, Daily cyanocobalamin 100 mcg oral tablet, 100 mcg= 1 tab(s), Oral, qDay furosemide 40 mg oral tablet, 40 mg= 1 tab(s), Oral, BID, 3 refills losartan 25 mg oral tablet, 12.5 mg= 0.5 tab(s), Oral, qDay, 3 refills Lovenox 80 mg/0.8 mL injectable solution, 70 mg= 0.7 mL, Subcutaneous, q12h metOLazone 2.5 mg oral tablet, 2.5 mg= 1 tab(s), Oral, Daily, 3 refills Multiple Vitamins oral capsule, 1 cap(s), Oral, Daily potassium chloride 20 mEq oral tablet, extended release, 20 mEq= 1 tab(s), Oral, QID pravastatin 80 mg oral tablet, 80 mg= 1 tab(s), Oral, qHS tamsulosin 0.4 mg oral capsule, 0.4 mg= 1 cap(s), Oral, qHS Tylenol Extra Strength 500 mg oral tablet, 500 mg= 1 tab(s), Oral, q4h, PRN warfarin 2.5 mg oral tablet, 2.5 mg= 1 tab(s), Oral, Daily Allergies ampicillin (RASH, ITCHING) lisinopril (cough) penicillin (rash/itching) Social History Tobacco use: Patient never smoked EtOH: None Illicit drugs: None 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 Colon cancer: Mother. Father age 81 from a brain tumor, history of CAD with CABG Mother age 90 with history of CVA, colon cancer Sister alive history of cancer and vascular aneurysms Sister alive with history of Parkinson's, cancer Brother alive with history of [place] Immunizations No qualifying data available. Digitally Signed by VIRA MEREDITH on 09/15/2021 05:[address] [id number] Discharge summary Date of Service 09/15/2021 Discharge Diagnosis Severe mitral regurgitation Cardiomyopathy (LVEF 35 to 40%) History of aortic aneurysm repair (2008) History of mechanical aortic valve replacement Atrial fibrillation (Coumadin) Hyperlipidemia Coronary artery disease Hospital Course Sharita Tran is a 71-year-old male with a significant past medical history of aortic aneurysm s/p repair (2008), aortic insufficiency s/p aortic valve replacement (1986 with a repeat mechanical valve On-X 2008), paroxysmal atrial fibrillation (Coumadin), cardiomyopathy (LVEF 35 to 40%), HLD, and severe mitral regurgitation who presents for an elective cardiac catheterization as part of work-up for potential MitraClip versus mitral valve repair/replacement. Cardiac catheterization revealed 90% mid LAD lesion. Cardiothoracic surgery colleagues consulted for further assistance in management and evaluation for mitral valve repair/replacement and revascularization of LAD. Pt is stable for discharge from a cardiac standpoint. Plan explained to patient and he expresses understanding. All questions, comments, and concerns addressed. Allergies ampicillin (RASH, ITCHING) lisinopril (cough) penicillin (rash/itching) Consults Consult to Physician - Ordered -- 09/15/21 15:54:00 EDT, JOSE D MARIE MD, Routine, mitral valve repair/replacement evaluation and mid LAD lesion. Imaging Results and Diagnostics I have reviewed all available EKGs, echocardiograms, stress test and cardiac catheterizations. Relevant laboratory data have also been reviewed. Objective Vitals and Measurements T: 36.7 C (Oral) HR: 80 RR: 16 BP: 108/60 SpO2: 94% HT: 167.64 cm WT: 72.3 kg BMI: 25.73 BMI: 25.73 Weight Dosing Weight: 72.3 kg (09/15/21) Dosing Weight: 72.3 kg (09/15/21) Pending Labs and Studies None Code Status No qualifying data available. Admission Date 09/15/2021 Discharge Date 09/15/2021 Medications Unchanged acetaminophen (Tylenol Extra Strength 500 mg oral tablet)1 tab(s) by mouth every 4 hours as needed as needed for pain. aspirin (aspirin 81 mg oral delayed release tablet)1 tab(s) by mouth every day. busPIRone (busPIRone 10 mg oral tablet)1 tab(s) by mouth two (2) times a day. carvedilol (carvedilol 6.25 mg oral tablet)0.5 tab(s) by mouth twice daily with meals. cholecalciferol (cholecalciferol 1000 intl units (25 mcg) oral capsule)2 cap by mouth every day. citalopram (citalopram 20 mg oral tablet)1 tab(s) by mouth every day. cyanocobalamin (cyanocobalamin 100 mcg oral tablet)1 tab(s) by mouth once a day. enoxaparin (Lovenox 80 mg/0.8 mL injectable solution)0.7 Milliliter Subcutaneous every 12 hours for7 Days. furosemide (furosemide 40 mg oral tablet)1 tab(s) by mouth two (2) times a day. Refills: 3. losartan (losartan 25 mg oral tablet)0.5 tab(s) by mouth once a day. Refills: 3. metOLazone (metOLazone 2.5 mg oral tablet)1 tab(s) by mouth every day. Refills: 3. multivitamin (Multiple Vitamins oral capsule)1 cap by mouth every day. potassium chloride (potassium chloride 20 mEq oral tablet, extended release)1 tab(s) by mouth four (4) times a day. Take with food.. pravastatin (pravastatin 80 mg oral tablet)1 tab(s) by mouth daily at bedtime. tamsulosin (tamsulosin 0.4 mg oral capsule)1 cap by mouth daily at bedtime. warfarin (warfarin 2.5 mg oral tablet)1 tab(s) by mouth every day. Follow Up Follow Up with NIKOLAY LOCKWOOD MD When 10/24/2021 10:45 AM EDT [facility] [address] [facility] [address] [place] [address]- Follow Up Appointments No qualifying data available. Follow Up Labs/Studies Discharge Labs No Follow-up Labs Discharge Studies No Follow-up Studies Discharge Diet No qualifying data available. Discharge Activity Discharge Activity - Ordered -- Lifting Restricted less than 10 pounds, FOR 1 WEEK, 09/15/21 15:52:00 EDT Condition on Discharge Stable Readmission Risk/Palliative Score No qualifying data available. Discharge Disposition Home Information Provided To Patient Digitally Signed by LILO WAGNER DO on 09/15/2021 04:[address] [id number] History and physical note Date of Service 09/15/2021 Chief Complaint Cardiomyopathy History of Present Illness Sharita Burrell is a 71-year-old male with a significant past medical history of aortic aneurysm s/p repair (2008), aortic insufficiency s/p aortic valve replacement (1986 with a repeat mechanical valve On-X 2008), paroxysmal atrial fibrillation (Coumadin), cardiomyopathy (LVEF 35 to 40%), HLD, and severe mitral regurgitation who presents for an elective cardiac catheterization as part of work-up for potential MitraClip. Patient seen and examined at bedside. He is currently hemodynamically stable in no acute distress. At this time patient has no cardiopulmonary complaints. Review of Systems A thorough 14 point review of system was done, and is negative except for what was listed above in the HPI section Physical Exam Vitals and Measurements T: 36.7 C (Oral) HR: 80 RR: 16 BP: 108/60 SpO2: 94% HT: 167.64 cm WT: 72.3 kg BMI: 25.73 BMI: 25.73 Weight Dosing Weight: 72.3 kg (09/15/21) Dosing Weight: 72.3 kg (09/15/21) Lab Results 09/15 12:22 Protime: 12.8 PT International Ratio: 1.1 Imaging Results and Diagnostics I have reviewed all available EKGs, echocardiograms, stress test and cardiac catheterizations. Relevant laboratory data have also been reviewed. EKG I have reviewed all available EKGs, echocardiograms, stress test and cardiac catheterizations. Relevant laboratory data have also been reviewed. Assessment/Plan Impression: Severe mitral regurgitation Cardiomyopathy (LVEF 35 to 40%) History of aortic aneurysm repair (2008) History of mechanical aortic valve replacement Atrial fibrillation (Coumadin) Hyperlipidemia Plan: We will proceed with transesophageal echocardiogram for better visualization of mitral valve regurgitation. We will also proceed with cardiac catheterization to assess for obstructive coronary arterydisease as part of MitraClip evaluation. Plan discussed with patient. All questions, comments, and concerns addressed. Assessment and plan was discussed with Dr. Mcarthur. Any changes in assessment/plan, will be added as an addendum to this note by the attending physician. This note was transcribed via voice recognition software. Please forgive any errors or typos resulting from the use of this technology. Lilo Wagner DO, MS Health Physicist (PGY-5) Pager [phone]/ Cortext Problem List/Past Medical History Ongoing AORTIC VALVE STENOSIS/INSUFFICIENCY (Renamed from AORTIC VALVE DEFECT) Cardiomyopathy Carotid artery disease DIZZINESS H/O mechanical aortic valve replacement HFrEF (heart failure with reduced ejection fraction) HYPERLIPIDEMIA, UNSPECIFIED HYPERLIPIDEMIA TYPE INCREASED BMI KIDNEY STONE LBBB (left bundle branch block) LEFT VENTRICULAR DYSFUNCTION LICE by Dr. Gooden Mitral regurgitation Obesity Paroxysmal atrial fibrillation Postural dizziness with presyncope STENOSIS OF LEFT CAROTID ARTERY Historical No qualifying data Procedure/Surgical History Cardiac catheterization: 09/15/21 Echocardiogram: 07/23/20 Echocardiogram: 12/01/18 Echocardiogram: 09/24/16 Cardiovascular stress testin11/26/10 EKG findin Hernia: 10/24/09 Carotid endarterectomy: 06/28/09 Carotid artery: 05/29/09 AVR - Aortic valve replacement: 12/31/08 MUGA scan: 2008 History of repair of ascending aorta: 2008 Cardiac catheterization: 2008 MUGA scan: 2007 Medications Home Medications (16) Active aspirin 81 mg oral delayed release tablet 81 mg = 1 tab(s), Oral, Daily busPIRone 10 mg oral tablet 10 mg = 1 tab(s), Oral, BID carvedilol 6.25 mg oral tablet 3.125 mg = 0.5 tab(s), Oral, BIDM cholecalciferol 1000 intl units (25 mcg) oral capsule 2,000 International_Unit = 2 cap(s), Oral, Daily citalopram 20 mg oral tablet 20 mg = 1 tab(s), Oral, Daily cyanocobalamin 100 mcg oral tablet 100 mcg = 1 tab(s), Oral, qDay furosemide 40 mg oral tablet 40 mg = 1 tab(s), Oral, BID losartan 25 mg oral tablet 12.5 mg = 0.5 tab(s), Oral, qDay Lovenox 80 mg/0.8 mL injectable solution 70 mg = 0.7 mL, Subcutaneous, q12h metOLazone 2.5 mg oral tablet 2.5 mg = 1 tab(s), Oral, Daily Multiple Vitamins oral capsule 1 cap(s), Oral, Daily potassium chloride 20 mEq oral tablet, extended release 20 mEq = 1 tab(s), Oral, QID pravastatin 80 mg oral tablet 80 mg = 1 tab(s), Oral, qHS tamsulosin 0.4 mg oral capsule 0.4 mg = 1 cap(s), Oral, qHS Tylenol Extra Strength 500 mg oral tablet 500 mg = 1 tab(s), PRN, Oral, q4h warfarin 2.5 mg oral tablet 2.5 mg = 1 tab(s), Oral, Daily Allergies ampicillin (RASH, ITCHING) lisinopril (cough) penicillin (rash/itching) Social History Smoking Status - 10/28/2009 Patient is non-smoker Alcohol Use: Past., 04/01/2020 Use: Current. Frequency: 1-2 times per year., 03/12/2020 Nutrition/Health Caffeine intake amount: occasionally., 04/01/2020 Substance Abuse Use: Never., 04/01/2020 Tobacco Nicotine Use: Never (less than 100 in lifetime)., 03/12/2020 Family History Cancer: Father. Colon cancer: Mother. Immunizations No qualifying data available. Code Status No qualifying data available. Digitally Signed by LILO WAGNER DO on 09/15/2021 02:[address] [id number] Evaluation + Plan noteExtracted from: Title:History and Physical Author:SETH WAGNER DO Date:09/15/21 Impression: Severe mitral regurgitation Cardiomyopathy (LVEF 35 to 40%) History of aortic aneurysm repair (2008) History of mechanical aortic valve replacement Atrial fibrillation (Coumadin) Hyperlipidemia Plan: We will proceed with transesophageal echocardiogram for better visualization of mitral valve regurgitation. We will also proceed with cardiac catheterization to assess for obstructive coronary artery disease as part of MitraClip evaluation. Plan discussed with patient. All questions, comments, and concerns addressed. Assessment and plan was discussed with Dr. Mcarthur. Any changes in assessment/plan, will be added as an addendum to this note by the attending physician. This note was transcribed via voice recognition software. Please forgive any errors or typos resulting from the use of this technology. Lilo Wagner DO, MS Health Physicist (PGY-5) Pager [phone]/ Cortext Addendum by NIKOLAY LOCKWOOD MD on September 15, 2021 23:09:52 EDT I have personally seen, examined, and evaluated the patient on the encounter date. I have reviewed the fellow s documentation and agree with the fellow s findings and plan as documented, unless otherwise stated. Future Appointments Appointment Date:10/24/2021 10:45:00 AM Scheduled Provider: Location:[facility] Appointment Type:CV OV Future Scheduled Tests Laboratory* Basic Metabolic Panel 05/10/21 * Basic Metabolic Panel 04/09/21 [facility] 04-02-2022 Evaluation + Plan note Future Scheduled Tests Laboratory* Basic Metabolic Panel 05/10/21 * Basic Metabolic Panel 04/09/21 [facility] Evaluation + Plan note Future Appointments Appointment Date:04/30/2021 11:15:00 AM Scheduled Provider: Location:[facility] Appointment Type:CV OV Future Scheduled Tests Laboratory* Basic Metabolic Panel 04/09/21 [facility] evaluation + Plan note Future Appointments Appointment Date:05/23/2021 11:45:00 AM Scheduled Provider: Location:[facility] Appointment Type:CV OV Future Scheduled Tests Laboratory* Basic Metabolic Panel 05/10/21 * Basic Metabolic Panel 04/09/21 [facility] Evaluation + Plan note Future Appointments Appointment Date:09/15/2021 01:00:00 PM Scheduled Provider: Location:[facility] Appointment Type:CV Procedure - Transesophageal Echocardi Appointment Date:09/15/2021 02:00:00 PM Scheduled Provider: Location:[facility] Appointment Type:CV Procedure - Heart Lab/Hybrid OR Appointment Date:10/24/2021 10:45:00 AM Scheduled Provider: Location:[facility] Appointment Type:CV OV Future Scheduled Tests Laboratory* Basic Metabolic Panel 05/10/21 * Basic Metabolic Panel 322 [facility] evaluation + Plan note Future Appointments Appointment Date:10/24/2021 10:45:00 AM Scheduled Provider: Location:[facility] Appointment Type:CV OV Future Scheduled Tests Laboratory* Basic Metabolic Panel 05/10/21 * Basic Metabolic Panel 04/09/21 [facility] Evaluation + Plan note Future Appointments Appointment Date:04/13/2022 11:45:00 AM Scheduled Provider: Location:[facility] Appointment Type:CV OV Future Scheduled Tests Laboratory* Basic Metabolic Panel 05/10/21 * Basic Metabolic Panel 04/15/22 * Basic Metabolic Panel 04/09/21 * Basic Metabolic Panel 04/23/22 * Basic Metabolic Panel 11/03/21 Radiology* CT Thorax w/o Contrast 03/18/22 [facility] evaluation + Plan note Future Appointments Appointment Date:04/13/2022 11:45:00 AM Scheduled Provider: Location:[facility] Appointment Type:CV OV Future Scheduled Tests Laboratory* Basic Metabolic Panel 05/10/21 * Basic Metabolic Panel 04/15/22 * Basic Metabolic Panel 04/09/21 * Basic Metabolic Panel 04/23/22 * Basic Metabolic Panel 11/03/21 [facility] evaluation note* Diagnosis Onset Date Resolution Status Atrial fibrillation acute Bilateral lower extremity edema acute Open wounds involving multip le regions of lower extremity acute Peripheral vascular disease of lower extremity with ulceration [facility] Work Phone: Evaluation note* Diagnosis Onset Date Resolution Status Atrial fibrillation acute Bilateral lower extremity edema acute Open wounds involving multip le regions of lower extremity acute Peripheral vascular disease of lower extremity with ulceration acute Atrial fibrillation acute Bilateral lower extremity edema acute Open wounds involving multip le regions of lower extremity acute Peripheral vascular disease of lower extremity with ulceration 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 Diagnosis Mitral valve disorder- Primary Mitral valve disorders [facility] Diagnosis Pre-operative cardiovascular examination- Primary Other specified symptoms and signs involving the circulatory and respiratory systems Shortness of breath Shortness of breath Paroxysmal atrial fibrillation (HCC) Atrial fibrillation Atherosclerosis of coronary artery of saxman heart, unspecified vessel or lesion type, unspecified whether angina present Mitral valve disorder Mitral valve disorders [facility] Diagnosis Dyspnea and respiratory abnormalities- Primary Other dyspnea and respiratory abnormality Pre-operative cardiovascular examination Paroxysmal atrial fibrillation (HCC) Atrial fibrillation Atherosclerosis of coronary artery of saxman heart, unspecified vessel or lesion type, unspecified whether angina present Mitral valve disorder Mitral valve disorders [facility] Diagnosis Dyspnea and respiratory abnormalities- Primary Other dyspnea and respiratory abnormality Pre-operative cardiovascular examination Paroxysmal atrial fibrillation (HCC) Atrial fibrillation Atherosclerosis of coronary artery of saxman heart, unspecified vessel or lesion type, unspecified whether angina present Mitral valve disorder Mitral valve disorders [facility] Diagnosis Encounter for education- Primary Counseling NOS Pre-op exam Preoperative examination, unspecified Pre-operative cardiovascular examination Paroxysmal atrial fibrillation (HCC) Atrial fibrillation Atherosclerosis of coronary artery of saxman heart, unspecified vessel or lesion type, unspecified whether angina present Mitral valve disorder Mitral valve disorders [facility] Diagnosis Encounter for preoperative anesthesiology assessment for cardiac surgery- Primary Pre-operative cardiovascular examination Paroxysmal atrial fibrillation (HCC) Atrial fibrillation Atherosclerosis of coronary artery of saxman heart, unspecified vessel or lesion type, unspecified whether angina present Mitral valve disorder Mitral valve disorders [facility] Diagnosis Nonrheumatic mitral valve regurgitation- Primary S/P AVR (aortic valve replacement) Heart valve replaced by other means Pre-operative cardiovascular examination Shortness of breath Shortness of breath Paroxysmal atrial fibrillation (HCC) Atrial fibrillation HFrEF (heart failure with reduced ejection fraction) (HCC) Heart failure, unspecified Coronary artery disease involving saxman coronary artery of saxman heart without angina pectoris Discharge planning issues Encounters for unspecified administrative purpose Preop testing Preoperative examination, unspecified Pre-operative cardiovascular examination Paroxysmal atrial fibrillation (HCC) Atrial fibrillation Atherosclerosis of coronary artery of saxman heart, unspecified vessel or lesion type, unspecified whether angina present Mitral valve disorder Mitral valve disorders documented in this encounter [facility] note* Diagnosis Pre-operative cardiovascular examination Paroxysmal atrial fibrillation (HCC) Atrial fibrillation Atherosclerosis of coronary artery of saxman heart, unspecified vessel or lesion type, unspecified whether angina present Mitral valve disorder Mitral valve disorders documented in this encounter [facility] note* Diagnosis Surgery follow-up Follow-up examination, following unspecified surgery documented in this encounter [facility] note* Diagnosis H/O mitral valve repair- Primary Personal history of surgery to heart and great vessels, presenting hazards to health S/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 PAF (paroxysmal atrial fibrillation) ([facility]) Atrial fibrillation Primary hypertension Unspecified essential hypertension Chronic systolic dysfunction of left ventricle Heart disease, unspecified documented in this encounter [facility] note* Diagnosis Severe mitral valve regurgitation- Primary Coronary artery disease involving saxman coronary artery of saxman heart without angina pectoris documented in this encounter [facility] note* Diagnosis S/P MVR (mitral valve repair)- Primary Other postprocedural status Atherosclerotic heart disease of saxman coronary artery with unspecified angina pectoris ([facility]) Atherosclerosis of CABG w/o angina pectoris Orthostasis Orthostatic hypotension documented in this encounter [facility] noteNo assessment information availableWOhio[facility] Work Phone: Hospital course Narrative No data available for this section [facility] Hospital Discharge instructions No data available for this section [facility] Progress note No data available for this section [facility] Reason for referral (narrative)* Outpatient Procedure (Routine) - Pending Review Specialty Diagnoses / Procedures Referred By Contac t Referred To Contact [facility] Diagnoses Pre-operative cardiovascular examination Paroxysmal atrial fibrillation (HCC) Atherosclerosis of coronary artery of saxman heart, unspecified vessel or lesion type, unspecified whether angina present Mitral valve disorder Procedures LUNG DIFFUSION CAPACITY (DLCO) DIFFUSING CAPACITY Andrew Ng MD [address] [place] [id number] [facility] [place] [address] [place] [id number] Referral ID Status Reason Start Date Expiration Date Visits Requested Visits Authorized [id number] Pending Review Auto-Generat ed Referral 2 03/08/2023 1 1 * Outpatient Procedure (Routine) - Pending Review Specialty Diagnoses / Procedures Referred By Contac t Referred To Contact [facility] Diagnoses Pre-operative cardiovascular examination Paroxysmal atrial fibrillation (HCC) Atherosclerosis of coronary artery of saxman heart, unspecified vessel or lesion type, unspecified whether angina present Mitral valve disorder Procedures SPIROMETRY BASELINE ONLY SPMTRY W/VC EXPIRATORY SOFIYA W/WO MXML VOL VNTJ Andrew Ng MD [address] [place] [id number] [facility] [place] [address] [place] [address] Referral ID Status Reason Start Date Expiration Date Visits Requested Visits Authorized [id number] Pending Review Auto-Generat ed Referral 2 03/08/2023 1 1 * Outpatient Procedure (Routine) - Pending Review Specialty Diagnoses / Procedures Referred By Bernadette t Referred To Contact [facility] [place] Diagnoses Shortness of breath Pre-operative cardiovascular examination Paroxysmal atrial fibrillation (HCC) Atherosclerosis of coronary artery of saxman heart, unspecified vessel or lesion type, unspecified whether angina present Mitral valve disorder Procedures US LEG VEIN MAP CELIO VAS LAB DUP-SCAN XTR VEINS [place] [address] [place] [id number] [facility] [address] [address] Referral ID Status Reason Start Date Expiration Date Visits Requested Visits Authorized [id number] Pending Review Auto-Generat ed Referral 2 02/06/2023 1 1 * Outpatient Procedure (Routine) - Pending Review Specialty Diagnoses / Procedures Referred By Contac t Referred To Contact [facility] Diagnoses Other specified symptoms and signs involving the circulatory and respiratory systems Pre-operative cardiovascular examination Paroxysmal atrial fibrillation (HCC) Atherosclerosis of coronary artery of saxman heart, unspecified vessel or lesion type, unspecified whether angina present Mitral valve disorder Procedures US CAROTID ARTERIES CELIO VAS LAB DUPLEX SCAN EXTRACRANIAL ART COMPL BI STUDY Andrew Ng MD [address] [place] [address] [facility] [address] [address] Referral ID Status Reason Start Date Expiration Date Visits Requested Visits Authorized [id number] Pending Review Auto-Generat ed Referral 2 02/06/2023 1 1 * Consult, Test, Treat (Routine) - Authorized Specialty Diagnoses / Procedures Referred By Contac t Referred To Contact Cardiac Surg Diagnoses Pre-operative cardiovascular examination Paroxysmal atrial fibrillation (HCC) Atherosclerosis of coronary artery of saxman heart, unspecified vessel or lesion type, unspecified whether angina present Mitral valve disorder Procedures CARDIOTHORACIC PREOP EVALUATION OFFICE/OUTPATIENT [facility] 60-74 MINUTES Andrew Ng MD [address] [place] [address] Referral ID Status Reason Start Date Expiration Date Visits Requested Visits Authorized [id number] Authorized PCP Requested Referral 2 02/06/2023 1 1 * Consult, Test, Treat (Routine) - Authorized Specialty Diagnoses / Procedures Referred By Contac t Referred To Contact Cardiology Diagnoses Pre-operative cardiovascular examination Paroxysmal atrial fibrillation (HCC) Atherosclerosis of coronary artery of saxman heart, unspecified vessel or lesion type, unspecified whether angina present Mitral valve disorder Procedures CONSULT TO CARDIOLOGY OFFICE/OUTPATIENT [facility] 60-74 MINUTES Andrew Ng MD [address] [place] [address] Referral ID Status Reason Start Date Expiration Date Visits Requested Visits Authorized [id number] Authorized PCP Requested Referral 2 02/06/2023 1 1 [facility] for referral (narrative)* Outpatient Procedure (Routine) - Pending Review Specialty Diagnoses / Procedures Referred By Contac t Referred To [facility] Diagnoses S/P MVR (mitral valve repair) Procedures ECHO LIMITED ECHO TRANSTHORAC R-T 2D W/WO M-MODE REC COMP Luis Tabor MD [address] [place] [address] [facility] [address] [place] [address] Referral ID Status Reason Start Date Expiration Date Visits Requested Visits Authorized [id number] Pending Review Auto-Generat ed Referral 05/05/2022 05/05/2023 1 1 [facility] for referral (narrative)No reason for referral information [facility] Work Phone: Chief Complaint and Reason for Visit Chief Complaint WOUND/ BILAT LE ANNETTE A PAD WOUND/ BILAT LE EDEMA PAD Reason for Visit Atrial fibrillation Bilateral lower extremity edema Open wounds involving multiple regions of lower extremity Peripheral vascular disease of lower extremity with ulceration Chief Complaint WOUND/ BILAT LE ANNETTE A PAD WOUND/ BILAT LE EDEMA PAD WOUND/ BILAT LE EDEMA PAD WOUND/ BILAT LE EDEMA PAD WOUND/ BILAT LE EDEMA PAD WOUND/ BILAT LE EDEMA PAD Reason for Visit Atrial fibrillation Bilateral lower extremity edema Open wounds involving multiple regions of lower extremity Peripheral vascular disease of lower extremity with ulceration Atrial fibrillation Bilateral lower extremity edema Open wounds involving multiple regions of lower extremity Peripheral vascular disease of lower extremity with ulceration Chief Complaint CABG x 1 HFrEF LVEF 35-40% Chief Complaint CABG x 1 HFrEF LVEF 35-40% S/P CABG x 1, MITRAL VALVE REPAIR Chief Complaint CABG x 1 HFrEF LVEF 35-40% S/P CABG x 1, MITRAL VALVE REPAIR S/P CABG x 1, MITRAL VALVE REPAIR Chief Complaint CABG x 1 HFrEF LVEF 35-40% S/P CABG x 1, MITRAL VALVE REPAIR S/P CABG x 1, MITRAL VALVE REPAIR S/P CABG x 1, MITRAL VALVE REPAIR S/P CABG x 1, MITRAL VALVE REPAIR Reason for Referral Specialty Diagnoses / Procedures Referred By Monicaac t Referred To Contact CT IMAGING Diagnoses Encounter for preoperative vascular examination Pre-operative cardiovascular examination Atrial fibrillation, unspecified type (HCC) 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, unspecified vessel or lesion type (HCC) Mitral valve disorder Procedures CT CHEST CARDIAC WO IVCON DIAGNOSTIC COMPUTED TOMOGRAPHY THORAX W/O CNTRST Andrew Ng MD [address] [place] [address] Ct Imaging Referral ID Status Reason Start Date Expiration Date Visits Requested Visits Authorized [id number] Pending Review Auto-Generat ed Referral 01/13/2022 02/12/2023 1 1 Specialty Diagnoses / Procedures Referred By Bernadette t Referred To Contact [facility] [place] Diagnoses Encounter for preoperative vascular examination Pre-operative cardiovascular examination Atrial fibrillation, unspecified type (HCC) 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, unspecified vessel or lesion type (HCC) Mitral valve disorder Procedures ECHO ECHO TTHRC R-T 2D W/WOM-MODE COMPL SPEC&COLR D Andrew Ng MD [address] [place] [address] [facility] [address] [address] Referral ID Status Reason Start Date Expiration Date Visits Requested Visits Authorized [id number] Pending Review Auto-Generat ed Referral 01/13/2022 01/13/2023 1 1 Specialty Diagnoses / Procedures [facility]erred To Contact [facility] [place] Diagnoses Encounter for preoperative vascular examination Pre-operative cardiovascular examination Atrial fibrillation, unspecified type (HCC) 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, unspecified vessel or lesion type (HCC) Mitral valve disorder Procedures ECG COMPLETE ECG ROUTINE ECG W/LEAST 12 LDS W/I&R Andrew Ng MD [address] [place] [address] [facility] [address] [place] [address] Referral ID Status Reason Start Date Expiration Date Visits Requested Visits Authorized [id number] Pending Review Auto-Generat ed Referral 01/13/2022 01/13/2023 1 1 Specialty Diagnoses / Procedures Referred By Contac t Referred To Contact Cardiac Surg Diagnoses Encounter for preoperative vascular examination Pre-operative cardiovascular examination Atrial fibrillation, unspecified type (HCC) 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, unspecified vessel or lesion type (HCC) Mitral valve disorder Procedures CARDIOTHORACIC PREOP EVALUATION OFFICE/OUTPATIENT [facility] 60-74 MINUTES Andrew Ng MD [address] [place] [address] Referral ID Status Reason Start Date Expiration Date Visits Requested Visits Authorized [id number] Authorized PCP Requested Referral 01/13/2022 01/13/2023 1 1 Specialty Diagnoses / Procedures Referred By Contac t Referred To Contact Cardiology Diagnoses Encounter for preoperative vascular examination Pre-operative cardiovascular examination Atrial fibrillation, unspecified type (HCC) 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, unspecified vessel or lesion type (HCC) Mitral valve disorder Procedures CONSULT TO CARDIOLOGY OFFICE/OUTPATIENT [facility] 60-74 MINUTES Andrew Ng MD [address] [place] [address] Referral ID Status Reason Start Date Expiration Date Visits Requested Visits Authorized [id number] Authorized PCP Requested Referral 01/13/2022 01/13/2023 1 1 Health Concerns Infection Onset Date Last Indicated Resolved Time COVID-19 Rule-Out 03/04/2022 03/04/2022 03/04/2022 11:04 PM EST Summary Purpose Family History No Family History Records FoundNo Family History Records FoundNo Family History Records Found Advance Directives No Advanced Directives Records Found Advance Directive Response Recorded Date/ Time Advance Directives on File No June 122022 8:49am Living Will No June 12, 2022 8: 49am 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 No June 12, 2022 8:49am Advance Directive Response Recorded Date/ Time Living Will No June 12, 2022 8: 49am 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 [address] [place] [address] Referring Cardiology 11/28/21 Weighing Station Operator Relationship Specialty Start Date End Date Nikolay Lockwood MD [address] [facility] [address] [place] [address] Referring Cardiology 11/28/21 Luis Tabor MD [address] [place] [address] Primary Staff Physician Cardiology 01/21/22 Weighing Station Operator Relationship Specialty Start Date End Date Nikolay Lockwood MD [address] [facility] [address] [place] [address] Referring Cardiology 11/28/21 Luis Tabor MD [address] [place] [address] Primary Staff Physician Cardiology 01/21/22 Weighing Station Operator Relationship Specialty Start Date End Date Nikolay Lockwood MD [address] [facility] [address] [place] [address] Referring Cardiology 11/28/21 Luis Tabor MD [address] [place] [address] Primary Staff Physician Cardiology 01/21/22 Weighing Station Operator Relationship Specialty Start Date End Date Syl Ray [address] [facility] [address] [place] [address] PCP - General Family Medicine 02/12/22 Nikolay Lockwood MD [address] [place] [address] Referring Cardiology 11/28/21 Luis Tabor MD [address] [place] [address] Primary Staff Physician Cardiology 01/21/22 Weighing Station Operator Relationship Specialty Start Date End Date Syl Ray [address] [facility] [address] [place] [address] PCP - General Family Medicine 02/12/22 Nikolay Lockwood MD [address] [facility] [address] [place] [address] Referring Cardiology 11/28/21 Luis Tabor MD [address] [place] [address] Primary Staff Physician Cardiology 01/21/22 Weighing Station Operator Relationship Specialty Start Date End Date Syl Ray [address] [facility] [address] [place] [address] PCP - General Family Medicine 02/12/22 Nikolay Lockwood MD [address] [place] [address] Referring Cardiology 11/28/21 Luis Tabor MD [address] [place] [address] Primary Staff Physician Cardiology 01/21/22 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 Station Operator Relationship Specialty Start Date End Date Syl Ray [address] [facility] [address] [place] [address] PCP - General Family Medicine 02/12/22 Nikolay Lockwood MD [address] [place] [place] [address] Referring Cardiology 11/28/21 Luis Tabor MD [address] [place] [address] Primary Staff Physician Cardiology 01/21/22 Weighing Station Operator Relationship Specialty Start Date End Date Syl Ray [address] [facility] [address] [place] [address] PCP - General Family Medicine 02/12/22 Nikolay Lockwood MD [address] [facility] [address] [place] [address] Referring Cardiology 11/28/21 Luis Tabor MD [address] [place] [address] Primary Staff Physician Cardiology 01/21/22 Weighing Station Operator Relationship Specialty Start Date End Date Syl Ray [address] [facility] [address] [place] [address] PCP - General Family Medicine 02/12/22 Nikolay Lockwood MD [address] [place] [place] [address] Referring Cardiology 11/28/21 Luis Tabor MD [address] [place] [address] Primary Staff Physician Cardiology 01/21/22 Weighing Station Operator Relationship Specialty Start Date End Date Syl Ray [address] [facility] [address] [place] [address] PCP - General Family Medicine 02/12/22 Nikolay Lockwood MD [address] [place] [address] [place] [address] Referring Cardiology 11/28/21 Luis Tabor MD [address] [place] [address] Primary Staff Physician Cardiology 01/21/22 Weighing Station Operator Relationship Specialty Start Date End Date Syl Ray [address] [facility] [address] [place] [address] PCP - General Family Medicine 02/12/22 Nikolay Lockwood MD [address] [facility] [address] [place] [address] Referring Cardiology 11/28/21 Luis Tabor MD [address] [place] [address] Primary Staff Physician Cardiology 01/21/22 Weighing Station Operator Relationship Specialty Start Date End Date Syl Ray [address] [facility] [address] [place] [address] PCP - General Family Medicine 02/12/22 Nikolay Lockwood MD [address] [facility] [address] [place] [address] Referring Cardiology 11/28/21 Luis Tabor MD [address] [place] [address] Primary Staff Physician Cardiology 01/21/22 Weighing Station Operator Relationship Specialty Start Date End Date Syl Ray [address] [facility] [address] [place] [address] PCP - General Family Medicine 02/12/22 Nikolay Lockwood MD [address] [place] [address] [place] [address] Referring Cardiology 11/28/21 Luis Tabor MD [address] [place] [address] Primary Staff Physician Cardiology 01/21/22 Weighing Station Operator Relationship Specialty Start Date End Date Syl Ray [address] [facility] [address] [place] [address] PCP - General Family Medicine 02/12/22 Nikolay Lockwood MD [address] [place] [address] [place] [address] Referring Cardiology 11/28/21 Luis Tabor MD [address] [place] [address] Primary Staff Physician Cardiology 01/21/22 Weighing Station Operator Relationship Specialty Start Date End Date Syl Ray [address] [facility] [address] [place] [address] PCP - General Family Medicine 02/12/22 Nikolay Lockwood MD [address] [place] [address] [place] [address] Referring Cardiology 11/28/21 Luis Tabor MD [address] [place] [address] Primary Staff Physician Cardiology 01/21/22 Weighing Station Operator Relationship Specialty Start Date End Date Syl Ray [address] [facility] [address] [place] [address] PCP - General Family Medicine 02/12/22 Nikolay Lockwood MD [address] [place] [address] [place] [address] Referring Cardiology 11/28/21 Luis Tabor MD [address] [place] [address] Primary Staff Physician Cardiology 01/21/22 Weighing Station Operator Relationship Specialty Start Date End Date Syl Ray [address] [facility] [address] [place] [address] PCP - General Family Medicine 02/12/22 Nikolay Lockwood MD [address] [facility] [address] [place] [address] Referring Cardiology 11/28/21 Luis Tabor MD [address] [place] [address] Primary Staff Physician Cardiology 01/21/22 Weighing Station Operator Relationship Specialty Start Date End Date Syl Ray [address] [facility] [address] [place] [address] PCP - General Family Medicine 02/12/22 Nikolay Lockwood MD [address] [facility] [address] [place] [address] Referring Cardiology 11/28/21 Luis Tabor MD [address] [place] [address] Primary Staff Physician Cardiology 01/21/22 Weighing Station Operator Relationship Specialty Start Date End Date Syl Ray [address] [facility] [address] [place] [address] PCP - General Family Medicine 02/12/22 Nikolay Lockwood MD [address] [facility] [address] [place] [address] Referring Cardiology 11/28/21 Luis Tabor MD [address] [place] [address] Primary Staff Physician Cardiology 01/21/22 Team Status: Active Member Role Status Dates Dr. Syl Munroe MD Family Provider Active Dr. María Pacheco MD Primary Care Provider Active Team Status: Inactive Member Role Status Dates Dr. Syl Ray MD Primary Care Pr ovider, Attending Provider, Referring Provider Active Team Status: Inactive Member Role Status Dates [facility] Attending Provider Active Dr. María Pacheco MD Primary Care Provider Active Team Status: Inactive Member Role Status Dates Dr. María Pacheco MD Primary Care Provider Active [facility] Attending Provider Active Team Status: Inactive Member Role Status Dates Dr. María Pacheco MD Primary Care Provider Active [facility] Attending Provider, Referring Provider Ac tive Weighing Station Operator Relationship Specialty Start Date End Date Syl Ray MD [address] [facility] [address] [place] [address] PCP - General Family Medicine 02/12/22 Nikolay Lockwood MD [address] [email or web address] [address] [facility] [place] [address] Referring Cardiology 11/28/21 Luis Tabor MD [address] [place], [place] [address] Primary Staff Physician Cardiology 01/21/22 Weighing Station Operator Relationship Specialty Start Date End Date Syl Ray MD [address] [facility] [address] [place] [address] PCP - General Family Medicine 02/12/22 Nikolay Lockwood MD [address] [facility] [address] [place] [address] Referring Cardiology 11/28/21 Luis Tabor MD [address] [place] [address] Primary Staff Physician Cardiology 01/21/22 Weighing Station Operator Relationship Specialty Start Date End Date Syl Ray MD [address] [facility] [address] [place] [address] PCP - General Family Medicine 02/12/22 Nikolay Lockwood MD [address] [facility] [address] [place] [address] Referring Cardiology 11/28/21 Luis Tabor MD [address] [place] [address] Primary Staff Physician Cardiology 01/21/22 Weighing Station Operator Relationship Specialty Start Date End Date Syl Ray MD [address] [facility] [address] [place], [place] [address] PCP - General Family Medicine 02/12/22 Nikolay Lockwood MD [address] [facility] [address] [place] [address] Referring Cardiology 11/28/21 Luis Tabor MD [address] [place] [place] [id number] Primary Staff Physician Cardiology 01/21/22 Team Status: Active Member Role/Relationship Status Dates Dr. Syl Munroe MD Primary care physician Active Dr. Fred Orozco MD Primary care physician Active Team Status: Inactive Member Role/Relationship Status Dates Dr. Fred Orozco MD Primary care physician Active Start: November 06, 2024 End: November 06, 2024 [facility] MEDICAL STAFF ASSISTANT, MEDICAL STAFF ASSISTANT-C Attending physician Active Start: November 06, 2024 End: November 06, 2024 Care Team (unrecognized sect ion and content) Care Team Personnel Name: SYL THURMAN DO Member Role: Primary Care Physician Address: Address: [address] [facility] [address] [place] [address]- Care Team Related Persons Name: LANA TRAN Care Team Personnel Name: SYL THURMAN DO Member Role: Primary Care Physician Address: Address: [address] [facility] [address] [place] [id number]- Care Team Related Persons Name: LANA TRAN Care Team Personnel Name: SYL THURMAN DO Member Role: Primary Care Physician Address: Address: [address] [facility] [address] [place] [id number]- Care Team Related Persons Name: LANA TRAN Care Team Personnel Name: JOSE D MARIE MD Position: P4 Physician - Cardiothoracic Surgery Member Role: Cardiothoracic Surgeon Address: Address: [address] [place] [address] [address] [facility] [place] [address]- Name: NIKOLAY LOCKWOOD MD Position: P4 Physician - Cardiology Member Role: Commercial Credit Lead Address: Address: [address] [facility] [address] [facility] [place] [address]- Name: SYL THURMAN DO Member Role: Primary Care Physician Address: Address: [address] [facility] [address] [place] [id number]- Care Team Related Persons Name: LANA TRAN Care Team Personnel Name: JOSE D MARIE MD Position: P4 Physician - Cardiothoracic Surgery Member Role: Cardiothoracic Surgeon Address: Address: [address] [facility] [[email or web address] [address] [facility] [place] [address]- Name: NIKOLAY LOCKWOOD MD Position: P4 Physician - Cardiology Member Role: Commercial Credit Lead Address: Address: [address] [facility] [[email or web address] [address] [facility] [place] [address]- Name: SYL THURMAN DO Member Role: Primary Care Physician Address: Address: [address] [facility] [address] [place], [place] [address] Care Team Related Persons Name: LANA TRAN Source Comments (unrecognize d section and content) In the event this informatio n is protected by the Federal Confidentiality of Alcohol and Drug Abuse Patient Records regulations: The Federal rules restrict any use of the information to criminally investigate or prosecute any alcohol or drug abuse patient.[facility] the event this information is protected by the Federal Confidentiality of Alcohol and Drug Abuse Patient Records regulations: The Federal rules restrict any use of the information to criminally investigate or prosecute any alcohol or drug abuse patient.[facility] the event this information is protected by the Federal Confidentiality of Alcohol and Drug Abuse Patient Records regulations: The Federal rules restrict any use of the information to criminally investigate or prosecute any alcohol or drug abuse patient.[facility] the event this information is protected by the Federal Confidentiality of Alcohol and Drug Abuse Patient Records regulations: The Federal rules restrict any use of the information to criminally investigate or prosecute any alcohol or drug abuse patient.[facility] the event this information is protected by the Federal Confidentiality of Alcohol and Drug Abuse Patient Records regulations: The Federal rules restrict any use of the information to criminally investigate or prosecute any alcohol or drug abuse patient.[facility] the event this information is protected by the Federal Confidentiality of Alcohol and Drug Abuse Patient Records regulations: The Federal rules restrict any use of the information to criminally investigate or prosecute any alcohol or drug abuse patient.[facility] the event this information is protected by the Federal Confidentiality of Alcohol and Drug Abuse Patient Records regulations: The Federal rules restrict any use of the information to criminally investigate or prosecute any alcohol or drug abuse patient.[facility] the event this information is protected by the Federal Confidentiality of Alcohol and Drug Abuse Patient Records regulations: The Federal rules restrict any use of the information to criminally investigate or prosecute any alcohol or drug abuse patient.[facility] the event this information is protected by the Federal Confidentiality of Alcohol and Drug Abuse Patient Records regulations: The Federal rules restrict any use of the information to criminally investigate or prosecute any alcohol or drug abuse patient.[facility] the event this information is protected by the Federal Confidentiality of Alcohol and Drug Abuse Patient Records regulations: The Federal rules restrict any use of the information to criminally investigate or prosecute any alcohol or drug abuse patient.[facility] Hospital[facility] the event this information is protected by the Federal Confidentiality of Alcohol and Drug Abuse Patient Records regulations: The Federal rules restrict any use of the information to criminally investigate or prosecute any alcohol or drug abuse patient.[facility] Hospital[facility] the event this information is protected by the Federal Confidentiality of Alcohol and Drug Abuse Patient Records regulations: The Federal rules restrict any use of the information to criminally investigate or prosecute any alcohol or drug abuse patient.[facility] the event this information is protected by the Federal Confidentiality of Alcohol and Drug Abuse Patient Records regulations: The Federal rules restrict any use of the information to criminally investigate or prosecute any alcohol or drug abuse patient.[facility] HospitalIn the event this information is protected by the Federal Confidentiality of Alcohol and Drug Abuse Patient Records regulations: The Federal rules restrict any use of the information to criminally investigate or prosecute any alcohol or drug abuse patient.[facility] HospitalIn the event this information is protected by the Federal Confidentiality of Alcohol and Drug Abuse Patient Records regulations: The Federal rules restrict any use of the information to criminally investigate or prosecute any alcohol or drug abuse patient.[facility] HospitalIn the event this information is protected by the Federal Confidentiality of Alcohol and Drug Abuse Patient Records regulations: The Federal rules restrict any use of the information to criminally investigate or prosecute any alcohol or drug abuse patient.[facility] HospitalIn the event this information is protected by the Federal Confidentiality of Alcohol and Drug Abuse Patient Records regulations: The Federal rules restrict any use of the information to criminally investigate or prosecute any alcohol or drug abuse patient.[facility] the event this information is protected by the Federal Confidentiality of Alcohol and Drug Abuse Patient Records regulations: The Federal rules restrict any use of the information to criminally investigate or prosecute any alcohol or drug abuse patient.[facility]In the event this information is protected by the Federal Confidentiality of Alcohol and Drug Abuse Patient Records regulations: The Federal rules restrict any use of the information to criminally investigate or prosecute any alcohol or drug abuse patient.[facility]In the event this information is protected by the Federal Confidentiality of Alcohol and Drug Abuse Patient Records regulations: The Federal rules restrict any use of the information to criminally investigate or prosecute any alcohol or drug abuse patient.[facility]In the event this information is protected by the Federal Confidentiality of Alcohol and Drug Abuse Patient Records regulations: The Federal rules restrict any use of the information to criminally investigate or prosecute any alcohol or drug abuse patient.[facility]In the event this information is protected by the Federal Confidentiality of Alcohol and Drug Abuse Patient Records regulations: The Federal rules restrict any use of the information to criminally investigate or prosecute any alcohol or drug abuse patient.[facility]In the event this information is protected by the Federal Confidentiality of Alcohol and Drug Abuse Patient Records regulations: The Federal rules restrict any use of the information to criminally investigate or prosecute any alcohol or drug abuse patient.[facility]In the event this information is protected by the Federal Confidentiality of Alcohol and Drug Abuse Patient Records regulations: The Federal rules restrict any use of the information to criminally investigate or prosecute any alcohol or drug abuse patient.[facility]In the event this information is protected by the Federal Confidentiality of Alcohol and Drug Abuse Patient Records regulations: The Federal rules restrict any use of the information to criminally investigate or prosecute any alcohol or drug abuse patient.[facility]In the event this information is protected by the Federal Confidentiality of Alcohol and Drug Abuse Patient Records regulations: The Federal rules restrict any use of the information to criminally investigate or prosecute any alcohol or drug abuse patient.[facility]In the event this information is protected by the Federal Confidentiality of Alcohol and Drug Abuse Patient Records regulations: The Federal rules restrict any use of the information to criminally investigate or prosecute any alcohol or drug abuse patient.[facility]In the event this information is protected by the Federal Confidentiality of Alcohol and Drug Abuse Patient Records regulations: The Federal rules restrict any use of the information to criminally investigate or prosecute any alcohol or drug abuse patient.[facility]In the event this information is protected by the Federal Confidentiality of Alcohol and Drug Abuse Patient Records regulations: The Federal rules restrict any use of the information to criminally investigate or prosecute any alcohol or drug abuse patient.[facility]In the event this information is protected by the Federal Confidentiality of Alcohol and Drug Abuse Patient Records regulations: The Federal rules restrict any use of the information to criminally investigate or prosecute any alcohol or drug abuse patient.[facility]In the event this information is protected by the Federal Confidentiality of Alcohol and Drug Abuse Patient Records regulations: The Federal rules restrict any use of the information to criminally investigate or prosecute any alcohol or drug abuse patient.[facility] Reason for Visit (unrecogniz ed section and content) Reason Comments New [facility] Referral Reason Comments Insurance Inquiry Reason Comments Schedule Evaluation Specialty Diagnoses / Procedures Referred By Contac t Referred To Contact CT IMAGING Diagnoses Encounter for preoperative vascular examination Pre-operative cardiovascular examination Atrial fibrillation, unspecified type (HCC) 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, unspecified vessel or lesion type (HCC) Mitral valve disorder Procedures CT CHEST CARDIAC WO IVCON DIAGNOSTIC COMPUTED TOMOGRAPHY THORAX [place] [address] [place] [id number] Imaging Referral ID Status Reason Start Date Expiration Date V isits Requested Visits Authorized [id number] Closed Auto-Generate d Referral 01/13/2022 02/12/2023 1 1 Reason Comments Cardiac Preop Checklist Reason Comments Plug 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 Assessment Reason Comments Spirometry Specialty Diagnoses / Procedures Referred By Contac t Referred To Contact [facility] Diagnoses Pre-operative cardiovascular examination Paroxysmal atrial fibrillation (HCC) Atherosclerosis of coronary artery of saxman heart, unspecified vessel or lesion type, unspecified whether angina present Mitral valve disorder Procedures LUNG DIFFUSION CAPACITY (DLCO) DIFFUSING CAPACITY Andrew Ng MD [address] [place] [address] [facility] [address] [place], [place] [address] [address] Referral ID Status Reason Start Date Expiration Date V isits Requested Visits Authorized [id number] Closed Auto-Generate d Referral 02/06/2022 03/08/2023 1 1 Specialty Diagnoses / Procedures Referred By Contac t Referred To Contact [facility] Diagnoses Pre-operative cardiovascular examination Paroxysmal atrial fibrillation (HCC) Atherosclerosis of coronary artery of saxman heart, unspecified vessel or lesion type, unspecified whether angina present Mitral valve disorder Procedures SPIROMETRY BASELINE ONLY SPMTRY W/VC EXPIRATORY SOFIYA W/[place] [address] [place] [address] [facility] [address] [place] [address] Referral ID Status Reason Start Date Expiration Date V isits Requested Visits Authorized [id number] Closed Auto-Generate d Referral 02/06/2022 03/08/2023 1 1 Reason Comments Pre-Op Exam Specialty Diagnoses / Procedures Referred By Contac t Referred To Contact Cardiology Diagnoses Pre-operative cardiovascular examination Paroxysmal atrial fibrillation (HCC) Atherosclerosis of coronary artery of saxman heart, unspecified vessel or lesion type, unspecified whether angina present Mitral valve disorder Procedures CONSULT TO CARDIOLOGY OFFICE/OUTPATIENT [facility] 60-74 MINUTES Andrew Ng MD [address] [place] [address] Referral ID Status Reason Start Date Expiration Date V isits Requested Visits Authorized [id number] Closed PCP Requested Referral 02/06/2022 02/06/2023 1 1 Reason Comments Radio Main J1 Reason Comments Follow Up Phone Call RC f/u all clear Reason Comments Post Dc Program Call - Fyi Specialty Diagnoses / Procedures Referred By Contac t Referred To Contact Cardiac Surg Diagnoses Pre-operative cardiovascular examination Paroxysmal atrial fibrillation (HCC) Atherosclerosis of coronary artery of saxman heart, unspecified vessel or lesion type, unspecified whether angina present Mitral valve disorder Procedures CARDIOTHORACIC PREOP EVALUATION OFFICE/OUTPATIENT [facility] 60-74 MINUTES Andrew Ng MD [address] [facility] [place] [address] Referral ID Status Reason Start Date Expiration Date V isits Requested Visits Authorized [id number] Closed PCP Requested Referral 02/06/2022 02/06/2023 1 1 Reason Comments Orders Reason Comments Medication Problem Reason Comments Follow Up Reason Comments Received Outside Medical Records Outside Echo and lab reports (unrecognized sect ion and content) No Status Records FoundNo Status Records FoundNo Status Records Found INFORMATION SOURCE (unrecogn ized section and content) DATE CREATED AUTHOR 03/30/2022 [facility] ([place]) DATE CREATED AUTHOR AUTHOR'S ORGANIZ ATION 06/16/2024 [facility] DATE CREATED AUTHOR AUTHOR'S ORGANIZ ATION 11/12/[address] [facility] FOR RECORDS PERTAINING TO PATIENTS WHO ARE OR HAVE BEEN ENROLLED IN A CHEMICAL DEPENDENCY/SUBSTANCEABUSE PROGRAM, SOME INFORMATION MAY BE OMITTED. This clinical summary was aggregated from multiple sources. Caution should be exercised in using it in the provision of clinical care. This summary normalizes information from multiple sources, and as a consequence, information in this document may materially change the coding, format and clinical context of patient data. In addition, data may be omitted in some cases. CLINICAL DECISIONS SHOULD BE BASED ON THE PRIMARY CLINICAL RECORDS. [facility]. provides no warranty or guarantee of the accuracy or completeness of information in this document.
[2024-12-26 19:24] LABS: AST(SGOT) 31 U/L (<=37); Alanine Aminotransfer ALT/SGPT 18 U/L (<=46); Albumin, Serum 4.2 g/dL (3.4-4.8); Alkaline Phosphatase 87 U/L (40-129); Anion Gap 13 (5-15); BUN 27 mg/dL (4-19); BUN/Creat Ratio 30.1 RATIO (10-20); Calcium,Total 9.2 mg/dL (7.6-11.0); Carbon Dioxide 25.0 mmol/L (21.0-32.0); Chloride 103 mmol/L (98-108); Cholesterol 144 mg/dL (<=200); Globulin 2.2 g/dL (2.2-4.2); Glucose 89 mg/dL (70-99); Low Density Lipoprotein Calc. 67 mg/dL; Potassium 4.4 mmol/L (3.3-5.1); Triglycerides 118 mg/dL; Very Low Density Lipoprotein 24 mg/dL (5-40); cholesterol:hdl ratio screen 2.58
== END | disposition home or self-care (01) ==
PROVIDERS: PCP Family Medicine; Referring Provider Family Medicine; Visit Provider Family Medicine
DX: E78.5 Hyperlipidemia, unspecified (principal)
CPT/HCPCS: 36415; 80053; 80061